=== PATIENT | female | born 1960 | race Caucasian/White ===

== ENCOUNTER 2020-08-27 12:53 | Outpatient (REF) | payer OTHER, SELFPAY ==
--- NOTE | 2020-08-27 13:00 | XR_ITS ---
EXAMINATION: XR RIGHT ANKLE, LEFT KNEE AND AP BILATERAL KNEES STANDING CLINICAL INFORMATION: Pain left knee and right ankle. COMPARISON: None. TECHNIQUE: AP bilateral knee: There is mild reduction in medial compartment joint space both knees. No bony erosive changes or loose body seen. FINDINGS: AP BILATERAL KNEE: There is mild reduction in medial compartment joint space both knees without any periarticular spurring or bony erosive changes. No loose body seen. LEFT KNEE: There is mild reduction in patellofemoral compartment joint space with mild periarticular spurring. There is no abnormal joint effusion. No bony erosive changes. There are no loose bodies. The soft tissues are normal. RIGHT ANKLE: There is a small avulsion fracture base of the 5th metatarsal. No additional fractures seen. There is mild dorsal tarsometatarsal spurring. There is small calcaneal heel spur. The ankle mortise and subtalar joints are normal. The soft tissues are normal. XR/XR ankle RT min 3V IMPRESSION: Mild degenerative arthritic changes medial and patellofemoral compartment with mild superior patellar spurring. No abnormal joint effusion. No bony erosive changes. Small avulsion fracture base of the 5th metatarsal. Mild degenerative spurring dorsal tarsometatarsal joint space and a moderate-sized calcaneal heel spur.
--- NOTE | 2020-08-27 13:00 | XR_ITS ---
EXAMINATION: XR RIGHT ANKLE, LEFT KNEE AND AP BILATERAL KNEES STANDING CLINICAL INFORMATION: Pain left knee and right ankle. COMPARISON: None. TECHNIQUE: AP bilateral knee: There is mild reduction in medial compartment joint space both knees. No bony erosive changes or loose body seen. FINDINGS: AP BILATERAL KNEE: There is mild reduction in medial compartment joint space both knees without any periarticular spurring or bony erosive changes. No loose body seen. LEFT KNEE: There is mild reduction in patellofemoral compartment joint space with mild periarticular spurring. There is no abnormal joint effusion. No bony erosive changes. There are no loose bodies. The soft tissues are normal. RIGHT ANKLE: There is a small avulsion fracture base of the 5th metatarsal. No additional fractures seen. There is mild dorsal tarsometatarsal spurring. There is small calcaneal heel spur. The ankle mortise and subtalar joints are normal. The soft tissues are normal. XR/XR knee LT 2V IMPRESSION: Mild degenerative arthritic changes medial and patellofemoral compartment with mild superior patellar spurring. No abnormal joint effusion. No bony erosive changes. Small avulsion fracture base of the 5th metatarsal. Mild degenerative spurring dorsal tarsometatarsal joint space and a moderate-sized calcaneal heel spur.
--- NOTE | 2020-08-27 13:00 | XR_ITS ---
EXAMINATION: XR RIGHT ANKLE, LEFT KNEE AND AP BILATERAL KNEES STANDING CLINICAL INFORMATION: Pain left knee and right ankle. COMPARISON: None. TECHNIQUE: AP bilateral knee: There is mild reduction in medial compartment joint space both knees. No bony erosive changes or loose body seen. FINDINGS: AP BILATERAL KNEE: There is mild reduction in medial compartment joint space both knees without any periarticular spurring or bony erosive changes. No loose body seen. LEFT KNEE: There is mild reduction in patellofemoral compartment joint space with mild periarticular spurring. There is no abnormal joint effusion. No bony erosive changes. There are no loose bodies. The soft tissues are normal. RIGHT ANKLE: There is a small avulsion fracture base of the 5th metatarsal. No additional fractures seen. There is mild dorsal tarsometatarsal spurring. There is small calcaneal heel spur. The ankle mortise and subtalar joints are normal. The soft tissues are normal. XR/XR knee standing BI IMPRESSION: Mild degenerative arthritic changes medial and patellofemoral compartment with mild superior patellar spurring. No abnormal joint effusion. No bony erosive changes. Small avulsion fracture base of the 5th metatarsal. Mild degenerative spurring dorsal tarsometatarsal joint space and a moderate-sized calcaneal heel spur.
== END 2020-08-27 12:54 | disposition home or self-care (01) ==
LOC: HO.HOSX 12:53
PROVIDERS: PCP Internal Medicine; Visit Provider Orthopaedic Surgery
DX: S99.911A Unspecified injury of right ankle, initial encounter (principal); M25.562 Pain in left knee; M25.561 Pain in right knee; S89.92XA Unspecified injury of left lower leg, initial encounter
CPT/HCPCS: 73560; 73565; 73610; 99212

== ENCOUNTER 2020-09-23 13:51 | Outpatient (REF) | payer OTHER, SELFPAY | END 2020-09-23 13:52 | disposition home or self-care (01) | LOC: HO.LAB 13:51 | PROVIDERS: Visit Provider Internal Medicine | DX: Z20.822 Contact with and (suspected) exposure to COVID-19 (principal) | CPT/HCPCS: 36415; C9803; U0003; U0005 ==

== ENCOUNTER 2021-03-04 07:26 | Outpatient (REF) | payer OTHER, SELFPAY ==
--- NOTE | ~2021-03-04 | MM_ITS ---
EXAMINATION: MM SCREENING DIGITAL BREAST TOMOSYNTHESIS, BILATERAL CLINICAL INFORMATION: Screening. Asymptomatic. The lifetime risk of breast cancer based on the Tyrer-Cuzick Model is 18%. COMPARISON: Mammography: 02/26/2020, 12/26/2018, 12/09/2017 TECHNIQUE: Digital breast tomosynthesis is performed in both the craniocaudal and mediolateral oblique views along with computer-aided detection (CAD). Synthesized 2D images are generated from the tomosynthesis. FINDINGS: The breasts are heterogeneously dense, which may obscure small masses (ACR BI-RADS breast composition Category c). There are no significant masses, abnormal calcifications, or other abnormalities. Scattered inhomogeneous parenchymal are similar to prior exams. No developing density. No significant changes. MM/MM tomosynthesis screening BI IMPRESSION: No mammographic evidence of malignancy. ASSESSMENT: BI-RADS 2: Benign RECOMMENDATION: Routine annual mammography screening. This patient's information was entered into a reminder system with a target due date for their next mammogram.
== END 2021-03-04 07:27 | disposition home or self-care (01) ==
LOC: HO.MAMMO 07:26
PROVIDERS: PCP Internal Medicine; Visit Provider Internal Medicine
DX: Z12.31 Encounter for screening mammogram for malignant neoplasm of breast (principal)
CPT/HCPCS: 77063; 77067

== ENCOUNTER 2021-04-09 08:30 | Outpatient (REF) | payer OTHER, SELFPAY ==
--- NOTE | ~2021-04-09 | MM_ITS ---
EXAMINATION: BONE DENSITOMETRY CLINICAL INDICATION: Osteopenia. COMPARISON: Baseline BD dated 04/28/2018. TECHNIQUE: Using a ididwork DXA System (software version: 13.1) manufactured by [employer], dual-energy x-ray absorptiometry was performed of the lumbar spine and left hip. The images are of good technical quality. Summary results are attached. FINDINGS: AP SPINE L1-L4: Current: BMD 1.154 g/cm2, Z-score 0.6, T-score -0.2, normal, 0.9% decrease from baseline (<5% change is not significant). Baseline: BMD 1.165 g/cm2. LEFT FEMUR, NECK: Current: BMD 0.814 g/cm2, Z-score -0.6, T-score -1.6, osteopenia. Baseline: BMD 0.856 g/cm2. LEFT FEMUR, TOTAL: Current: BMD 0.931 g/cm2, Z-score 0.0, T-score -0.6, normal, 2.1% decrease from baseline (<5% change is not significant). Baseline: BMD 0.951 g/cm2. IDENTIFIED RISK FACTORS: Low calcium intake. HISTORY OF FRACTURE: None listed. MEDICATIONS: None listed. MM/XR DEXA axial skeleton IMPRESSION: 1. DIAGNOSIS: Osteopenia based on the lowest T-score value of -1.6 in the femoral neck applying World Health Organization criteria. 2. 10-YEAR FRACTURE RISK PREDICTION, FRAX: Major osteoporotic fracture (clinical spine, forearm, hip or shoulder) 8.2%. Hip fracture 0.8%. 3. Treatment Recommendations: NOF guidelines recommend consideration for treatment in postmenopausal women and men age 50 and older presenting with the following: -A hip or vertebral (clinical or morphometric) fracture. -T-score less than or equal to -2.5 at the femoral neck or spine after appropriate evaluation to exclude secondary causes. -Low bone mass at the hip or spine and a 10-year fracture probability by FRAX of greater than or equal to 3% for hip fracture or greater than or equal to 20% for major osteoporotic fracture based on the [place] adapted WHO algorithm. 4. Other Recommendations: All treatment decisions require clinical judgment and consideration of individual patient factors, including patient preferences, comorbidities, previous drug use, risk factors not captured in the FRAX model (e.g. frailty, falls, vitamin D deficiency, increased bone turnover, interval significant decline in bone density) and possible under or overestimation of fracture risk by FRAX. Additional medical evaluation for secondary cause of low bone mineral density may be appropriate. FUTURE SCAN RECOMMENDATION: People with diagnosed cases of osteoporosis or at high risk for fracture should have regular bone mineral density tests. For patients eligible for Medicare, routine testing is allowed once every 2 years. The testing frequency can be increased to one year for patients who have rapidly progressing disease, those who are receiving or discontinuing medical therapy to restore bone mass, or have additional risk factors.
== END 2021-04-09 08:31 | disposition home or self-care (01) ==
LOC: HO.MAMMO 08:30
PROVIDERS: Visit Provider Internal Medicine
DX: Z13.820 Encounter for screening for osteoporosis (principal); M85.88 Other specified disorders of bone density and structure, other site
CPT/HCPCS: 77080

== ENCOUNTER 2021-05-02 10:55 | Outpatient (REF) | payer OTHER, SELFPAY ==
[2021-05-02 10:59] LABS: MANUAL DIFF FLAG NO
[2021-05-02 11:41] LABS: Basophils Percent Auto 0.4 % (0-2); Eosinophils Absolute Auto 0.1 X10*3/uL (0.0-0.4); Eosinophils Percent Auto 1.1 % (0-4); Hemoglobin 12.8 g/dl (12.0-16.0); Imm Gran Abs Auto 0.02 X10*3/uL (0.00-0.03); Imm Gran Pct Auto 0.2 % (0.0-0.4); Lymphocytes Absolute Auto 2.7 X10*3/uL (1.2-4.9); Lymphocytes Percent Auto 32.3 % (20-40); Mean Corpuscular HGB Conc 33.7 g/dl (31.0-35.0); Mean Corpuscular Hemoglobin 31.1 pg (27.0-33.0); Mean Corpuscular Volume 92.5 fL (80-98); Mean Platelet Volume 9.7 fL (9.4-12.3); Monocytes Absolute Auto 0.8 X10*3/uL (0.1-1.2); Neutrophils Absolute Auto 4.8 X10*3/uL (2.0-8.3); Platelet Count 362 X10*3/uL (160-400); Red Blood Count 4.11 X10*6/uL (4.20-5.50); Red Cell Distribution Width 11.9 % (11.0-16.0); White Blood Count 8.4 X10*3/uL (4.8-10.8)
[2021-05-02 12:04] LABS: Appearance Urine CLEAR; Color Urine YELLOW; Glucose Urine UA NEG (NEG); Leukocyte Esterase Urine NEG (NEG); Nitrite Urine NEG (NEG); Urine Blood 2+ (NEG); Urine Ketones NEG (NEG); Urine Protein NEG (NEG-TRACE)
[2021-05-02 12:19] LABS: Alanine Aminotransferase 16 U/L (0-31); Albumin Level 4.2 g/dL (3.5-5.0); Alkaline Phosphatase 78 U/L (39-117); Anion Gap 14 (12-20); Aspartate Amino Transferase 18 U/L (5-31); Bilirubin Total 0.9 mg/dL (0.0-1.0); Blood Urea Nitrogen 17 mg/dL (9-16); Calcium 10.1 mg/dL (8.4-10.2); Carbon Dioxide 28 mmol/L (22-29); Chloride 102 mmol/L (96-108); Cholesterol 239 mg/dL; Estimated Glomerular Filt Rate > 60; Glucose Fasting 84 mg/dL (60-99); HDL Cholesterol 75 mg/dL; LDL Cholesterol Calculated 142 mg/dl; Sodium 140 mmol/L (135-145); Total Protein 7.3 g/dL (6.5-8.0); Triglycerides 110 mg/dL
[2021-05-02 12:24] LABS: Vitamin D 25-OH Total 19.9 ng/mL (>30)
[2021-05-02 12:39] LABS: Bacteria Urine 1+ /LPF; RBC Urine 0-2 /HPF (0); Squamous Epithelial Cell Urine 1+ /LPF; WBC Urine 0 /HPF (0-4)
== END 2021-05-02 10:56 | disposition home or self-care (01) ==
LOC: HO.LNP 10:55
PROVIDERS: Visit Provider Internal Medicine
DX: I10 Essential (primary) hypertension (principal); E78.00 Pure hypercholesterolemia, unspecified; E55.9 Vitamin D deficiency, unspecified
CPT/HCPCS: 80053; 80061; 81001; 81003; 82306; 85025

== ENCOUNTER 2022-03-06 07:17 | Outpatient (REF) | payer OTHER, SELFPAY ==
--- NOTE | ~2022-03-06 | MM_ITS ---
EXAMINATION: MM SCREENING DIGITAL BREAST TOMOSYNTHESIS, BILATERAL CLINICAL INFORMATION: Screening. Asymptomatic. Remote history left breast surgery for cyst. Family history breast cancer, mother. The lifetime risk of breast cancer based on the Tyrer-Cuzick Model is 21%. COMPARISON: Mammography: 03/04/2021, 02/26/2020, 01/15/2019 TECHNIQUE: Digital breast tomosynthesis is performed in both the craniocaudal and mediolateral oblique views along with computer-aided detection (CAD). Synthesized 2D images are generated from the tomosynthesis. FINDINGS: The breasts are heterogeneously dense, which may obscure small masses (ACR BI-RADS breast composition Category c). Breast tissue composition borders on average fibroglandular. There are no significant masses, abnormal calcifications, or other abnormalities. Parenchymal pattern is similar to prior studies. The axilla and skin contours are unremarkable. MM/MM tomosynthesis screening BI IMPRESSION: No mammographic evidence of malignancy. ASSESSMENT: BI-RADS 1: Negative RECOMMENDATION: Routine annual mammography screening. This patient's information was entered into a reminder system with a target due date for their next mammogram.
== END 2022-03-06 07:18 | disposition home or self-care (01) ==
LOC: HO.MAMMO 07:17
PROVIDERS: Absent Provider Obstetrics & Gynecology; Visit Provider Internal Medicine
DX: Z12.31 Encounter for screening mammogram for malignant neoplasm of breast (principal)
CPT/HCPCS: 77063; 77067

== ENCOUNTER 2022-05-04 10:18 | Day surgery (SDC) | payer OTHER, SELFPAY ==
[2022-04-29 10:05] VITALS: BMI 29.6
--- NOTE | 2022-05-04 10:29 | HO.ANESPROP2 ---
HPI - Anesthesia Eval Consult details Narrative: 62 yo female patient for colonoscopy PMFSH Active Problems Active Problems: Asthma- stable. Uses advair everyday Past Medical History Medical History Asthma History of COVID-19 Hypertension Family History Family history of problems with anesthesia: No Surgical History Surgical History H/O colonoscopy History of breast lump/mass excision Hx of dilation and curettage S/P arthroscopic surgery of left knee History of Problems with Anesthesia: No Social History Social History Advance Directives: No Advance Directives Information Provided: Yes Current occupational status: employed Current occupation: Desk work - right handed Meds Allergies Allergy/AdvReac Type Severity Reaction Status Date / Time No Known Allergies Allergy Unverified 05/09/20 15:33 [No Known Allergies*] Active Medications: Current Medications Lactated Ringer's (Lr) 1,000 mls @ 100 mls/hr IVCONT .Q10H [facility] Home Medications Medication Instructions Recorded Confirmed Last Taken Type albuterol sulfate 90 mcg/actuation 2 puff inhalation Q4H PRN Wheezing 04/29/22 04/29/22 Unknown History aerosol inhaler fluticasone propionate 50 1 spray intranasal DAILY 04/29/22 04/29/22 Unknown History mcg/actuation nasal spray,suspension irbesartan 150 1 tab PO DAILY 04/29/22 04/29/22 Unknown History mg-hydrochlorothiazide 12.5 mg tablet Exam Exam Date and Time: May 04, 2022 1029 Height,Weight and Vital Signs: Height 5 ft 5 in Weight 80.739 kg Vital Signs Temp Pulse Resp BP Pulse Ox O2 Del Method 05/04/22 10:33 97.8 F 80 18 123/75 97 Room Air Airway Mallampati Class: I TM Dist: >3cm Neck ROM: Full Loose/Missing/Broken Teeth: No (Caps intact) Heart: RRR Lungs: CTAB Assessment and Plan Assessment Anesthesia Assessment: Anesthesia Plan Discussed and Chart Reviewed Final Anesthetic Review Family History of Problems with Anesthesia: No History of Problems with Anesthesia: No NPO: Yes ASA Class: II Final Preanesthetic Review: No Changes in Pt Med Stat, Meds/Allgs Chart Reviewed, Consent Obtained/Reviewed and Anes Risks/Benef Reviewed Patient Risk: Low Procedure Risk: Low Assessment/Block/Sedation in SS: Assess/Block/Sedation-SS Anesthetic Plan Anesthetic Plan: MAC: Disposition: Standard PACU
[2022-05-04 10:33] VITALS: BP 123/75; PULSE 80; RESP 18; TEMP 36.6; O2SAT 97
[2022-05-04] MEDS: Lactated Ringers 1,000 ML 100 ML IVCONT (10:49)
[2022-05-04 11:38] VITALS: BP 98/50; PULSE 67; RESP 16; TEMP 36.2; O2SAT 99
--- NOTE | 2022-05-04 11:41 | PM.OP ---
Brief Operative Note Date of Service: 05/04/22 Pre-op diagnosis: Screening Post-op diagnosis: other (Diverticulosis) Procedure: Colonoscopy to the cecum and TI Surgeon: aRshi Luna Anesthesia: MAC Was an Dust Collector Attendant used for this Procedure?: No Estimated blood loss (mL): 0 Pathology: none sent Condition: stable Disposition: PACU
[2022-05-04 11:53] VITALS: BP 97/54; PULSE 67; RESP 16; O2SAT 98
[2022-05-04 12:06] VITALS: BP 116/69; PULSE 63; RESP 16; TEMP 36.3; O2SAT 97
--- NOTE | 2022-05-04 23:13 | OP_ITS ---
05/04/2022 SURGEON: Rashi Luna MD INDICATIONS: The patient presents for evaluation of colorectal cancer screening. Full consent has been obtained from her for this, including risks of bleeding and perforation. PREOPERATIVE DIAGNOSIS: Colorectal cancer screening. POSTOPERATIVE DIAGNOSIS: PROCEDURE PERFORMED: Colonoscopy to cecum and terminal ileum. ESTIMATED BLOOD LOSS: COMPLICATIONS: ANESTHESIA: Medication used, monitored anesthesia care. ASSISTANTS: SPECIMENS: POSTOPERATIVE DIAGNOSES: 1. Colorectal cancer screening. 2. Mild sigmoid diverticulosis. 3. Small internal hemorrhoids. DESCRIPTION OF PROCEDURE: The patient was placed in the left lateral decubitus position. The digital rectal exam revealed no abnormalities. The Olympus video pediatric colonoscope was entered into the rectum and advanced easily to the cecum. Once in the cecum, I did identify normal-appearing cecal pouch with appendiceal orifice and a normal-appearing ileocecal valve. The terminal ileum was cannulated and appeared normal. The scope withdrawn back in the colon. The entire cecum and ileocecal valve appeared normal. The scope was slowly withdrawn assessing all mucosal surfaces carefully. Preparation was excellent. I did not visualize any sign of polyps, colitis, nor angiodysplasia. There was a mild amount of sigmoid diverticulosis. In the rectum, scope was retroflexed visualizing internal hemorrhoids, but no other pathology. The rectal mucosa appeared normal. The scope was straightened and withdrawn to the patient. She tolerated the procedure well and was returned to the recovery area in stable condition. IMPRESSION: 1. Mild sigmoid diverticulosis. 2. Small internal hemorrhoids. PLAN: Given the negative exam and negative family history, I would recommend a followup colonoscopy in 10 years for further screening. She will otherwise see me on a p.r.n. basis. MD JESSICA Paarda/FLAKITO / [id number] HUMBERTO
== END 2022-05-04 12:35 | disposition home or self-care (01) ==
PROVIDERS: PCP Internal Medicine; Visit Provider Internal Medicine
PROC: 0DJD8ZZ Inspection of Lower Intestinal Tract, Via Natural or Artificial Opening Endoscopic (ICD-10-PCS; CPT 45378; principal; 2022-05-04 11:50)
DX: Z12.11 Encounter for screening for malignant neoplasm of colon (principal); K57.30 Diverticulosis of large intestine without perforation or abscess without bleeding; K64.8 Other hemorrhoids; I10 Essential (primary) hypertension; J45.909 Unspecified asthma, uncomplicated
CPT/HCPCS: 45378

== ENCOUNTER 2022-05-07 11:57 | Outpatient (REF) | payer OTHER, SELFPAY ==
[2022-05-07 12:04] LABS: MANUAL DIFF FLAG NO
[2022-05-07 12:14] LABS: Basophils Percent Auto 0.3 % (0-2); Eosinophils Absolute Auto 0.1 X10*3/uL (0.0-0.4); Eosinophils Percent Auto 1.5 % (0-4); Hemoglobin 13.1 g/dl (12.0-16.0); Imm Gran Abs Auto 0.03 X10*3/uL (0.00-0.03); Imm Gran Pct Auto 0.3 % (0.0-0.4); Lymphocytes Absolute Auto 2.9 X10*3/uL (1.2-4.9); Lymphocytes Percent Auto 33.5 % (20-40); Mean Corpuscular HGB Conc 32.8 g/dl (31.0-35.0); Mean Corpuscular Hemoglobin 29.8 pg (27.0-33.0); Mean Corpuscular Volume 90.9 fL (80.0-98.0); Mean Platelet Volume 9.5 fL (9.4-12.3); Monocytes Absolute Auto 0.7 X10*3/uL (0.1-1.2); Monocytes Percent Auto 8.3 % (2-11); Neutrophils Absolute Auto 4.8 x10*3/uL (2.0-8.3); Neutrophils Percent Auto 56.1 % (45-73); Platelet Count 355 X10*3/uL (160-400); Red Cell Distribution Width 11.6 % (11.0-16.0); White Blood Count 8.6 X10*3/uL (4.8-10.8)
[2022-05-07 12:19] LABS: Appearance Urine Clear; Color Urine Yellow; Glucose Urine UA Negative (Negative); Leukocyte Esterase Urine Negative (Negative); Nitrite Urine Negative (Negative); PH 5.5 (5.0-9.0); Specific Gravity - Urine 1.025 (1.005-1.025); UMIC TRIGGER UA YES; Urine Blood Small (1+) (Negative); Urine Ketones Negative (Negative); Urine Protein Negative (Neg-Trace)
[2022-05-07 12:25] LABS: Alanine Aminotransferase 22 U/L (0-31); Albumin Level 4.3 g/dL (3.5-5.0); Alkaline Phosphatase 97 U/L (39-117); Anion Gap 13 (12-20); Aspartate Amino Transferase 23 U/L (5-31); Bilirubin Total 0.7 mg/dL (0.0-1.0); Blood Urea Nitrogen 17 mg/dL (9-16); Calcium 9.8 mg/dL (8.4-10.2); Carbon Dioxide 29 mmol/L (22-29); Chloride 102 mmol/L (96-108); Cholesterol 242 mg/dL; Estimated Glomerular Filt Rate > 60; Glucose Fasting 82 mg/dL (60-99); HDL Cholesterol 68 mg/dL; LDL Cholesterol Calculated 156 mg/dl; Potassium 4.1 mmol/L (3.3-5.1); Sodium 140 mmol/L (135-145); Total Protein 7.5 g/dL (6.5-8.0); Triglycerides 94 mg/dL
[2022-05-07 12:29] LABS: Bacteria Urine None Seen (None Seen); Hyaline Casts Urine 0-2 /LPF (0-2); WBC Urine 0-5 /HPF (0-5)
[2022-05-07 12:46] LABS: Vitamin D 25-OH Total 23.1 ng/mL (>30)
== END 2022-05-07 11:58 | disposition home or self-care (01) ==
LOC: HO.LNP 11:57
PROVIDERS: Visit Provider Internal Medicine
DX: Z00.00 Encounter for general adult medical examination without abnormal findings (principal); I10 Essential (primary) hypertension; E78.00 Pure hypercholesterolemia, unspecified; E55.9 Vitamin D deficiency, unspecified
CPT/HCPCS: 80053; 80061; 81001; 82306; 85025

== ENCOUNTER 2022-12-14 16:05 | Outpatient (REF) | payer OTHER, SELFPAY ==
[2022-12-14 16:49] LABS: Appearance Urine Clear; Color Urine Yellow; Glucose Urine UA Negative (Negative); Leukocyte Esterase Urine Negative (Negative); Nitrite Urine Negative (Negative); PH 6.5 (5.0-9.0); Urine Blood Negative (Negative); Urine Ketones Negative (Negative); Urine Protein Negative (Neg-Trace)
[2022-12-14 16:51] LABS: Bacteria Urine None Seen (None Seen); Hyaline Casts Urine 0-2 /LPF (0-2); Squamous Epithelial Cell Urine 0-2 /HPF (0-2); WBC Urine 0-5 /HPF (0-5)
== END 2022-12-14 16:06 | disposition home or self-care (01) ==
LOC: HO.LNP 16:05
PROVIDERS: Visit Provider Internal Medicine
DX: N30.00 Acute cystitis without hematuria (principal)
CPT/HCPCS: 81001; 87086

== ENCOUNTER 2023-03-11 12:10 | Outpatient (REF) | payer OTHER, SELFPAY ==
--- NOTE | ~2023-03-11 | MM_ITS ---
EXAMINATION: MM SCREENING DIGITAL BREAST TOMOSYNTHESIS, BILATERAL CLINICAL INFORMATION: Screening. Asymptomatic. The lifetime risk of breast cancer based on the Tyrer-Cuzick Model is 19.8%. COMPARISON: Mammography: This study is compared with prior exams dating back to 2018. TECHNIQUE: Digital breast tomosynthesis is performed in both the craniocaudal and mediolateral oblique views along with computer-aided detection (CAD). Synthesized 2D images are generated from the tomosynthesis. FINDINGS: The breasts are heterogeneously dense, which may obscure small masses (ACR BI-RADS breast composition Category c). There are no significant masses, abnormal calcifications, or other abnormalities. MM/MM tomosynthesis screening BI IMPRESSION: No mammographic evidence of malignancy. ASSESSMENT: BI-RADS BI-RADS 1 - Negative RECOMMENDATION: Routine annual mammography screening. 1 year F/U This examination should not preclude the clinical evaluation of a suspicious palpable abnormality. This patient's information was entered into a reminder system with a target due date for their next mammogram.
== END 2023-03-11 12:11 | disposition home or self-care (01) ==
LOC: HO.MAMMO 12:10
PROVIDERS: PCP Internal Medicine; Visit Provider Internal Medicine
DX: Z12.31 Encounter for screening mammogram for malignant neoplasm of breast (principal)
CPT/HCPCS: 77063; 77067

== ENCOUNTER → 2023-03-11 12:15 | Outpatient (BNV) | payer OTHER, SELFPAY | PROVIDERS: PCP Internal Medicine; Visit Provider Radiology Diagnostic Radiology | DX: Z12.31 Encounter for screening mammogram for malignant neoplasm of breast (principal) | CPT/HCPCS: 77063; 77067 ==

== ENCOUNTER 2023-05-04 08:34 | Outpatient (REF) | payer OTHER, SELFPAY ==
--- NOTE | ~2023-05-04 | XR_ITS ---
EXAMINATION: XR HAND, LEFT CLINICAL INFORMATION: Left hand pain COMPARISON: None available. TECHNIQUE: PA, lateral, and oblique views of the left hand. FINDINGS: Arrow points to the radial aspect of the wrist. No fracture, dislocation or focal soft tissue swelling. Alignment and articulations are maintained. XR/XR hand LT min 3V IMPRESSION: No acute bony pathology.
== END 2023-05-04 08:35 | disposition home or self-care (01) ==
LOC: HO.HOSX 08:34
PROVIDERS: Visit Provider Orthopaedic Surgery
DX: M65.4 Radial styloid tenosynovitis [de Quervain] (principal); M79.642 Pain in left hand
CPT/HCPCS: 20550; 73130; J1100

== ENCOUNTER 2023-05-04 13:49 | Outpatient (AMB) | payer OTHER, SELFPAY ==
--- NOTE | 2023-05-04 14:19 | A.OFFVIS_ITS ---
Intake Intake Visit Reasons: NProb-Left hand pain Intake Note: Lucy 63 yr old right hand dominant female presents today for a new problem of her left hand. States pain is mostly by her wrist below her thumb since December. Pain is triggered with use of thumb, pinching and grabbing motion. At times, states her hand feels weak. No injury she can recall. Denies numbness, tingling or locking of fingers. Patient recalls hx of right hand possibly dequervain injection. Allergies No Known Allergies [No Known Allergies*] Allergy (Unverified 05/04/23 14:29) HPI NProb-Left hand pain HPI Details Lucy Carranza is a 63-year-old right hand dominant woman who presents today to the office for an evaluation of left-hand pain. She reports left radial sided wrist pain. The patient states that her pain is mostly by her wrist below her thumb since December. The pain is triggered with use of thumb, pinching and grabbing motion. At times, she states that her hand feels weak. She does not recall any trauma or accidents in the past. She denies numbness, tingling or locking of fingers. Patient recalls history of right hand possibly dequervain injection. She works as an account payable on the computer. [facility] Medical History Asthma History of COVID-19 Hypertension Surgical History H/O colonoscopy History of breast lump/mass excision Hx of dilation and curettage S/P arthroscopic surgery of left knee Social History (Reviewed 05/04/23 @ 14:29 by Betsey Jackson [facility]) Patient Tobacco Use Status: Never used Tobacco Current occupational status: employed Current occupation: Desk work - right handed Review of Systems Const All systems reviewed & are unremarkable except as noted in HPI and below Physical Exam Const General: cooperative, healthy appearing and no acute distress Orientation/consciousness: patient oriented x3 HEENT Head: Yes normocephalic and Yes atraumatic Eyes EOM: EOMs intact bilaterally Resp Effort & Inspection: normal respiratory effort and able to speak in complete sentences Cardio Jugular venous distension: no JVD Skin General skin exam: turgor normal, ecchymosis (No) and erythema (No) Rashes: no rashes Trauma: no lacerations or abrasions Neuro Other: Vascular: Cap refill brisk General: patient oriented x3 Extrem Other: Evaluation of left Upper Extremity: Neuro: Median, ulnar, radial nerves motor and sensory intact. Vascular: Cap refill brisk. ROM: Can bring fingers closed to a fist and back out to full or nearly full extension. Can oppose thumb to fingertips Skin: No lacerations or abrasions. General: No eccymosis. No erythema or evidence of infection. She is most tender to palpation over the left 1st dorsal compartment tendon sheath. She has a positive Dillon test on the left and a negative Dillon test on the right She is not particularly tender over the basal joint of the thumb or the MCP joint of the thumb which is stable. Radiographs: Three views of the patient's left hand were reviewed by me today. They show no fractures or dislocations. She does not appear to have significant basal joint arthritis. Psych Appearance: grossly normal Affect: normal affect Attitude: cooperative Office Procedures Fracture Care Details: No fracture, injection Fracture Billing Code: Fracture Billing Code Assessment & Plan Assessment & Plan (1) De Quervain's tenosynovitis, left: Code(s): M65.4 - Radial styloid tenosynovitis [de Quervain] Plan Assessment and plan: 1. Left de Quervain tenosynovitis I educated her about this condition We discussed the importance of activity modification We fitted her with a neoprene thumb spica splint to wear with daytime activities and when symptomatic. We discussed operative and non operative treatment options and I am recommending a steroid injection. She would like the steroid injection today. Injection #1: The risks and benefits of a steroid injection including but not limited to risk of damage to blood vessels, nerves, tendons, infection, skin bleaching, failure to improve symptoms, increased pain, and possible need for further injections or other intervention were discussed with the patient and the patient wishes to proceed with the steroid injection. Once consent was obtained, I sterilely prepped the area over the left 1st dorsal compartment tendon sheath. I then injected the tendon sheath with a combination of 1 mL of dexamethasone (4mg/ml), and 1% lidocaine. The patient tolerated the procedure well with no complications. She had good early relief of her symptoms before leaving clinic. If the patient continues to have painful symptoms in 6-8 weeks, she may call to be seen again. At that time we can decide on whether not she might benefit from a repeat injection verses possible operative treatment. . Scribed for Dr. Zohreh Mejia by Jose Roberto Escalera, medical office administrator, on 05/04/2023. I, Dr. Zohreh Mejia, have personally reviewed and agree with the information entered by the scribe. Orders: Orders XR hand LT min 3V Today M79.642 - Pain in left hand Coding Level of Care Code New Pt Level 3 (35213) Diagnoses De Quervain's tenosynovitis, left M65.4 CPT Codes Fracture Care - Fracture Billing Code: Fracture Billing Code ([id number])
== END 2023-05-04 15:11 | disposition home or self-care (01) ==
PROVIDERS: PCP Internal Medicine; Visit Provider Orthopaedic Surgery
DX: M65.4 Radial styloid tenosynovitis [de Quervain] (principal)
CPT/HCPCS: 20550; 99203

== ENCOUNTER 2023-05-11 17:00 | Outpatient (REF) | payer OTHER, SELFPAY ==
--- NOTE | ~2023-05-11 | MR_ITS ---
EXAMINATION: MR BREAST WITHOUT AND WITH CONTRAST, BILATERAL CLINICAL INFORMATION: Dense breast tissue. Calculated lifetime risk of breast cancer by the Tyrer-Cuzick Model is 19.8%. COMPARISON: Bilateral mammogram 03/11/2023 TECHNIQUE: Imaging was performed with a dedicated breast coil. Prior to the administration of contrast, bilateral axial T1 and bilateral axial T2 weighted sequences were obtained. After the uneventful administration of?8 mL of Gadavist, dynamic contrast-enhanced VIBRANT series through the breasts in the axial plane were performed. Subtracted images were performed and reviewed. A delayed sagittal sequence through both breasts was acquired. Additionally, CAD post-processing, including maximum intensity projections, 3-D reconstructions and kinetic analysis, were performed an independent workstation and reviewed by the interpreting radiologist is a portion of this exam. Poor positioning results in regional signal loss of the upper outer left breast. FINDINGS: The patient's extremely dense fibroglandular tissue demonstrates minimal background enhancement. LEFT BREAST: No suspicious masslike or non-masslike enhancement. No abnormal skin thickening or nipple retraction. No abnormal architectural distortion. There is overall asymmetry with diffuse, mild enhancement on the left as opposed to the right. The appearance is suggestive of a technical artifact. Review of the T2 weighted images demonstrates no fibrocystic changes or dilated ducts. Review of kinetic images reveals no additional findings. RIGHT BREAST: No suspicious masslike or non-masslike enhancement. No abnormal skin thickening or nipple retraction. No abnormal architectural distortion. Review of the T2 weighted images demonstrates no fibrocystic changes or dilated ducts. Review of kinetic images reveals no additional findings. There is no suspicious internal mammary chain or axillary adenopathy. Limited views of the chest and abdomen are unremarkable. MR/MR breast BI wo/w con IMPRESSION: Technically limited study. There is artifact obscuring the upper outer left breast and an overall diffuse asymmetry of background enhancement, left greater than right which is presumably artifactual nature. ASSESSMENT: LEFT BREAST: BI-RADS 0, incomplete, need additional imaging evaluation. RIGHT BREAST: BI-RADS 0, incomplete, need additional imaging evaluation. RECOMMENDATIONS: Repeat dynamic contrast sequence due to poor positioning and artifact of the upper outer quadrant and central left breast.
[2023-05-11] MEDS: gadobutroL 10 ML VIAL IVPUSH (18:25)
== END 2023-05-11 17:01 | disposition home or self-care (01) ==
LOC: HO.MRI 17:00
PROVIDERS: PCP Internal Medicine; Visit Provider Internal Medicine
DX: R92.8 Other abnormal and inconclusive findings on diagnostic imaging of breast (principal); R92.2 Inconclusive mammogram; Z80.3 Family history of malignant neoplasm of breast
CPT/HCPCS: 77049; A9585

== ENCOUNTER 2023-05-13 11:01 | Outpatient (REF) | payer OTHER, SELFPAY ==
[2023-05-13 11:08] LABS: MANUAL DIFF FLAG NO
[2023-05-13 11:17] LABS: Appearance Urine Clear; Color Urine Yellow; Glucose Urine UA Negative (Negative); Leukocyte Esterase Urine Trace (Negative); Nitrite Urine Negative (Negative); PH 5.5 (5.0-9.0); Specific Gravity - Urine 1.025 (1.005-1.025); UMIC TRIGGER UACC YES; Urine Blood Small (1+) (Negative); Urine Ketones Negative (Negative); Urine Protein Negative (Neg-Trace)
[2023-05-13 11:20] LABS: Bacteria Urine None Seen (None Seen); Hyaline Casts Urine 0-2 /LPF (0-2); WBC Urine 0-5 /HPF (0-5)
[2023-05-13 11:54] LABS: Basophils Percent Auto 0.3 % (0-2); Eosinophils Absolute Auto 0.1 X10*3/uL (0.0-0.4); Eosinophils Percent Auto 1.5 % (0-4); Hematocrit 37.8 % (37.0-47.0); Hemoglobin 12.7 g/dl (12.0-16.0); Imm Gran Abs Auto 0.04 X10*3/uL (0.00-0.03); Imm Gran Pct Auto 0.5 % (0.0-0.4); Lymphocytes Absolute Auto 2.3 X10*3/uL (1.2-4.9); Lymphocytes Percent Auto 26.7 % (20-40); Mean Corpuscular HGB Conc 33.6 g/dl (31.0-35.0); Mean Corpuscular Hemoglobin 30.2 pg (27.0-33.0); Mean Corpuscular Volume 89.8 fL (80.0-98.0); Mean Platelet Volume 9.7 fL (9.4-12.3); Monocytes Absolute Auto 0.8 X10*3/uL (0.1-1.2); Monocytes Percent Auto 9.3 % (2-11); Neutrophils Absolute Auto 5.4 x10*3/uL (2.0-8.3); Neutrophils Percent Auto 61.7 % (45-73); Platelet Count 369 X10*3/uL (160-400); Red Blood Count 4.21 X10*6/uL (4.20-5.50); Red Cell Distribution Width 11.9 % (11.0-16.0); White Blood Count 8.7 X10*3/uL (4.8-10.8)
[2023-05-13 12:07] LABS: Alanine Aminotransferase 31 U/L (0-31); Albumin Level 4.2 g/dL (3.5-5.0); Alkaline Phosphatase 100 U/L (39-117); Anion Gap 11 (12-20); Aspartate Amino Transferase 28 U/L (5-31); Bilirubin Total 0.5 mg/dL (0.0-1.0); Blood Urea Nitrogen 23 mg/dL (9-16); Calcium 10.1 mg/dL (8.4-10.2); Carbon Dioxide 28 mmol/L (22-29); Chloride 107 mmol/L (96-108); Cholesterol 236 mg/dL (<200); Estimated Glomerular Filt Rate > 60; Glucose Fasting 87 mg/dL (60-99); HDL Cholesterol 75 mg/dL (>40); LDL Cholesterol Calculated 144 mg/dL (<100); Potassium 3.9 mmol/L (3.3-5.1); Sodium 142 mmol/L (135-145); Total Protein 7.5 g/dL (6.5-8.0); Triglycerides 85 mg/dL (<150)
== END 2023-05-13 11:02 | disposition home or self-care (01) ==
LOC: HO.LNP 11:01
PROVIDERS: Visit Provider Internal Medicine
DX: Z00.00 Encounter for general adult medical examination without abnormal findings (principal); E78.00 Pure hypercholesterolemia, unspecified; E55.9 Vitamin D deficiency, unspecified; I10 Essential (primary) hypertension
CPT/HCPCS: 80053; 80061; 81001; 82306; 85025

== ENCOUNTER 2023-05-28 11:34 | Outpatient (REF) | payer OTHER, SELFPAY | END 2023-05-28 11:35 | disposition home or self-care (01) | LOC: HO.MRI 11:34 | PROVIDERS: PCP Internal Medicine; Visit Provider Internal Medicine | DX: Z13.89 Encounter for screening for other disorder (principal) ==

== ENCOUNTER 2023-07-21 11:55 | Outpatient (AMB) | payer OTHER, SELFPAY ==
--- NOTE | 2023-07-21 12:14 | A.OFFVIS_ITS ---
Intake Intake Visit Reasons: ov-De Quervain's tenosynovitis, left Intake Note: Lucy is a 63 year old female who presents today to discuss surgery as the last injection was not helpful Allergies No Known Allergies [No Known Allergies*] Allergy (Unverified 06/10/23 13:49) HPI ov-De Quervain's tenosynovitis, left HPI Details Lucy is a 63 year old woman who presents for a follow-up of her left De Quervain's tenosynovitis. She is S/P injection on 05/04/23 with no relief. She continues to have radial sided wrist pain and would like to discuss surgery. [facility] Medical History Asthma History of COVID-19 Hypertension Surgical History H/O colonoscopy History of breast lump/mass excision Hx of dilation and curettage S/P arthroscopic surgery of left knee Social History (System 06/10/23 @ 13:49 by Larisa Glynn) Patient Tobacco Use Status: Never used Tobacco Current occupational status: employed Current occupation: Desk work - right handed Review of Systems Const All systems reviewed & are unremarkable except as noted in HPI and below Physical Exam Const General: no acute distress and alert Orientation/consciousness: patient oriented x3 HEENT Head: Yes normocephalic and Yes atraumatic Eyes EOM: EOMs intact bilaterally Resp Effort & Inspection: normal respiratory effort and able to speak in complete sentences Cardio Jugular venous distension: no JVD Skin General skin exam: turgor normal, ecchymosis (No) and erythema (No) Rashes: no rashes Trauma: no lacerations or abrasions Neuro Other: Vascular: Cap refill brisk General: patient oriented x3 Extrem Other: Evaluation of Left Upper Extremity: The patient is alert, oriented, and in no acute distress Neuro: Median, Ulnar, Radial nerves motor and sensory intact and sensation is normal to the tips of all digits Vascular: Cap refill brisk ROM: She can make a fist and extend all her digits Tender over the 1st dorsal compartment Pos Dillon test on the left Neg Dillon test on the right Psych Appearance: grossly normal Affect: normal affect Attitude: cooperative Assessment & Plan Assessment & Plan (1) De Quervain's tenosynovitis, left: Code(s): M65.4 - Radial styloid tenosynovitis [de Quervain] Plan Assessment and plan: 1. Left de Quervain tenosynovitis, S/P injection Date of Injection: 05/04/23 I educated her about this condition She continues to have pain following her injection The patient would like to proceed with surgery The risks and benefits of operative treatment were discussed with the patient and the patient wishes to proceed with surgery. These risks include, but are not limited to risk of damage to blood vessels, nerves, tendons, infection, recurrence, incomplete relief of preoperative symptoms, persistent pain, possible need for further surgery and the risks associated with regional blocks and anesthesia. The plan is to take the patient to the operating room sometime in the next few weeks for the following procedures: 1. Left 1st dorsal compartment release, under local All of the preoperative paperwork including the consent was filled out today. All the patient's questions were answered. The patient understands that they will be contacted by our channel layer kim elias to schedule this procedure She denies Diabetes, blood thinners, asthma, heart, lung, kidney issues Scribed for Zohreh Mejia MD by Angelito Cohen, medical billing and coding specialist, on 07/21/23 at 12:50 PM, EST. Coding Level of Care Code Est Pt Level 4 (78217) Diagnoses De Quervain's tenosynovitis, left M65.4
== END 2023-07-21 12:46 | disposition home or self-care (01) ==
PROVIDERS: PCP Internal Medicine; Visit Provider Orthopaedic Surgery
DX: M65.4 Radial styloid tenosynovitis [de Quervain] (principal)
CPT/HCPCS: 99214

== ENCOUNTER → 2023-07-21 11:55 | Outpatient (BNVA) | payer OTHER, SELFPAY | PROVIDERS: PCP Internal Medicine; Visit Provider Orthopaedic Surgery ==

== ENCOUNTER 2023-10-25 09:54 | Day surgery (SDC) | payer OTHER, SELFPAY ==
[2023-10-25 10:07] VITALS: BP 132/87; PULSE 79; RESP 20; TEMP 36.1; O2SAT 97; BMI 31.0
--- NOTE | 2023-10-25 10:41 | PC.NURSE ---
pt tolerated block fine nad
--- NOTE | 2023-10-25 11:48 | MHC.SHP ---
Pre-Procedural Eval Section A - 24 Hr Update-Section A only Date of Service: 10/25/23 The patient is an INPATIENT: No Changes since office visit: No Cold of Flu in the past 2 weeks, No New Medical Problems, No Changes in Medication and No Patient answered all questions The patient has been examined within 24 hours of the surgical procedure. The History & Physical has been completed within 30 days and I have reviewed it.: Yes Section B - Complete if H&P > 30 days Chief Complaint: Radial styloid tenosynovitis [de Quervain] Allergies: Allergies Allergy/AdvReac Type Severity Reaction Status Date / Time No Known Allergies Allergy Verified 10/25/23 10:26 [No Known Allergies*] Plan I have reviewed the history and physical and performed a pertinent physical examination on my patient. No changes have occurred unless specified. Time Spent With Patient Time: Total time managing care of this patient today ____ minutes.
--- NOTE | 2023-10-25 11:49 | P.OP_ITS ---
Operative Note Operative Note Date of Service: 10/25/23 Narrative: Operative Note Preop diagnosis: 1. Left DeQuervain's tenosynovitis Postop diagnosis: 1. Left DeQuervain's tenosynovitis Procedure: 1. Left 1st dorsal compartment release Surgeon: Zohreh Mejia MD Anesthesia: local block using 1% lidocaine with epinephrine Findings: F Thickened 1st dorsal compartment and a separate compartment for the EPB tendon with an hourglass deformity of the EPB tendon found EBL: Less than 5 mL Tourniquet time: None Specimens: None Complications: None Disposition: Brought to recovery room in stable condition Plan: Follow-up for 7-10 days for wound check and suture removal Indications: The patient is 63 years old, with left DeQuervain's tenosynovitis that has been unresponsive to nonoperative management. The risks and benefits of operative treatment including but not limited to risk of damage to blood vessels, nerves, tendons, infection, persistent pain, persistent symptoms, recurrence or possible need for additional surgery were discussed with the patient and the patient wishes to proceed with surgery. Procedure: Once consent was obtained a local block was performed in the preop area using a combination of 1% lidocaine with epinephrine. The patient was then brought back to the operating suite and placed on the operative table in supine position. A tourniquet was applied to the proximal aspect of the left upper extremity and the limb was prepped and draped in a standard surgical fashion. Once assured that we had a good block, a 1.5 cm longitudinal incision was made centered over the 1st dorsal compartment as it passed over the radial styloid of the left wrist. The incision was made through the skin to the subcutaneous tissues using a #15 blade. Careful dissection was made down to the level of the 1st dorsal compartment using tenotomy scissors, with care being taken to protect the nearby branches of the superficial radial nerve. Once the 1st dorsal compartment was exposed, A longitudinal incision was made in the 1st dorsal compartment 1st using a #15 blade, then using tenotomy scissors under direct visualization. The 1st dorsal compartment was noted to be thickened. The EPB tendon was noted to be in a separate compartment. I then incised this compartment longitudinally 1st with a 15. Blade and then with tenotomy scissors. The EPB tendon was noted to have an hourglass deformity. Following our release , we saw smooth gliding abductor pollicis longus and extensor pollicis brevis tendons. Once satisfied with our 1st dorsal compartment release the wound was copiously irrigated with normal saline and hemostasis was obtained with a brief period of local pressure. The subcutaneous layer was closed with some 4-0 Vicryl suture, and the skin edges were reapproximated with some 5.0 nylon suture material. A sterile dressing was applied. The patient appears to have tolerated the procedure well and with no complications. All digits were well vascularized at the conclusion of the case.
[2023-10-25 12:05] VITALS: BP 138/79; PULSE 85; RESP 16; O2SAT 97
== END 2023-10-25 12:06 | disposition home or self-care (01) ==
PROVIDERS: PCP Internal Medicine; Visit Provider Orthopaedic Surgery
PROC: (CPT 25000; principal; 2023-10-25 11:30)
DX: M65.4 Radial styloid tenosynovitis [de Quervain] (principal); M25.532 Pain in left wrist; J45.909 Unspecified asthma, uncomplicated; Z86.16 Personal history of COVID-19; Z98.890 Other specified postprocedural states
CPT/HCPCS: 25000; J0171

== ENCOUNTER → 2023-10-25 09:54 | Outpatient (BNV) | payer OTHER, SELFPAY | PROVIDERS: PCP Internal Medicine; Visit Provider Orthopaedic Surgery | DX: M65.4 Radial styloid tenosynovitis [de Quervain] (principal) | CPT/HCPCS: 25000 ==

== ENCOUNTER 2023-11-09 14:12 | Outpatient (AMB) | payer OTHER, SELFPAY ==
--- NOTE | 2023-11-09 14:31 | MHC.OFFVIS ---
Intake Vital Signs 11/09/23 14:33 Height 5 ft 4 in Weight 180 lb BMI 30.9 Intake Visit Reasons: PO-1st DC Release 10/25/23 Intake Note: Lucy 63 yr old female presents today for her P/O visit for her 1st DC release from 10/25/23. States she is doing well and has on and off pain. Sutures removed and strei strips applied. Allergies No Known Allergies [No Known Allergies*] Allergy (Verified 11/09/23 14:32) HPI PO-1st DC Release 10/25/23 HPI Details Lucy is a 63 year old woman who returns S/P left 1st dorsal compartment release, DOS: 10/25/23 She says she is doing well overall and can tell that she already has improvement. She is happy with the results of her surgery. [facility] Medical History Asthma History of COVID-19 Hypertension Surgical History History of breast lump/mass excision Hx of dilation and curettage H/O colonoscopy S/P arthroscopic surgery of left knee Social History Comment: counts correct Patient Tobacco Use Status: Never used Tobacco Current occupational status: employed Current occupation: Desk work - right handed Review of Systems Const All systems reviewed & are unremarkable except as noted in HPI and below Physical Exam Vital Signs: BMI result Body Mass Index 30.9 Const General: no acute distress and alert Orientation/consciousness: patient oriented x3 Neuro General: patient oriented x3 Extrem Other: The patient was alert oriented and in no acute distress The incision is healing well with no erythema drainage or evidence of infection. Sutures removed and Steri-Strips applied She can make a fist and extend all her digits She can already do an early Dillon test and says it is already feeling better. Sensation is intact Cap refill is brisk Surgical findings: Thickened 1st dorsal compartment and a separate compartment for the EPB tendon with an hourglass deformity of the EPB tendon found Psych Appearance: grossly normal Affect: normal affect Attitude: cooperative Assessment & Plan Assessment & Plan (1) De Quervain's tenosynovitis, left: Code(s): M65.4 - Radial styloid tenosynovitis [de Quervain] Plan Assessment and plan: 1. Left de Quervain tenosynovitis, S/P release DOS: 10/25/23 The patient appears to be doing well post-operatively she is able to perform an easy Dillon test, which is negative I educated her about the post-operative course I discussed activity modifications, she is to lift nothing heavier than a cellphone for the next two weeks She will perform gentle ROM exercises at home She should gently massage about the incision site to reduce the risk of hypersensitivity She is very happy with the results of her surgery. She can follow up prn Scribed for Zohreh Mejia MD by Angelito Cohen, center medical specialist, on 11/09/23 at 2:50 PM, EST. Coding Level of Care Code Global (71668) Diagnoses De Quervain's tenosynovitis, left M65.4
[2023-11-09 14:33] VITALS: BMI 30.9
== END 2023-11-09 15:17 | disposition home or self-care (01) ==
PROVIDERS: PCP Internal Medicine; Visit Provider Orthopaedic Surgery
DX: M65.4 Radial styloid tenosynovitis [de Quervain] (principal)
CPT/HCPCS: 99024

== ENCOUNTER → 2023-11-09 14:12 | Outpatient (BNVA) | payer OTHER, SELFPAY | PROVIDERS: PCP Internal Medicine; Visit Provider Orthopaedic Surgery ==

== ENCOUNTER 2024-01-25 13:43 | Outpatient (AMB) | payer OTHER, SELFPAY ==
--- NOTE | 2024-01-25 13:45 | MHC.OFFVIS ---
Intake Visit Reasons: Sebaceous Cyst upper back Intake Note: Patient referred by PCP Dr. Mcmahon for cyst on upper back. Present for months. Patient c/o: scabby after picked on it. There is a blackhead on it. No hx of skin CA. 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 She has had this indeterminate time. His increasing in size, and, symptomatic patient like to have removed. Chart was reviewed and patient evaluated [facility], [facility] Medical History (Updated 01/25/24 @ 13:52 by JENNA Welch) Tendonitis of wrist, left History of COVID-19 Hypertension Asthma Surgical History (Updated 01/25/24 @ 14:17 by Tk Booth MD) History of breast lump/mass excision Hx of dilation and curettage H/O colonoscopy S/P arthroscopic surgery of left knee Social History Comment: counts correct Patient Tobacco Use Status: Never used Tobacco Current occupational status: employed Current occupation: Desk work - right handed Physical Exam Back/Spine/Pelvis Other: Proximally 3 x 2 cm right upper back sebaceous cyst. Office Procedures Excision Details: Risks, benefits, alternatives of excision of upper back sebaceous cyst reviewed the patient included but not limited to bleeding, infection, recurrence, numbness, pain, scarring, seroma formation, wound dehiscence and the patient wished to proceed. All questions answered. Consent signed. After appropriate positioning, patient underwent 1% lidocaine and Betadine prep and a transverse by elliptical incision around the mass in question measuring approximately 3 x 2 cm was uneventfully excised. Consistent with a sebaceous cyst. Specimen sent to pathology. Wound was irrigated, secured hemostasis, and closed using running 3-0 Vicryl suture followed by Steri-Strips and sterile dressings. Patient tolerated procedure well. 25582-[id number]/arms/legs 2.1-3cm Procedure code (CPT) selection complete Office Meds lidocaine 1 %-epinephrine 1:100,000 injection solution Performing Provider: Tk Booth MD Performing Location: [facility] [place] [facility] Administered by: Tk Booth MD on 01/25/24 14:16 Dose Route Admin Location Dispensed Lot Number Expiration Date NDC Quarter Backer 10 mL Infiltration 10 mL Assessment & Plan Assessment & Plan (1) Sebaceous cyst: Code(s): L72.3 - Sebaceous cyst Category: Surgical Plan: Patient has been given local instructions including avoiding strenuous activities, shower in 2 days, ice to the wound, Tylenol and Motrin p.r.n. and will see me as directed or p.r.n.. Orders: Orders AMB Excision Today L72.3 - Sebaceous cyst Medications: New lidocaine-epinephrine 1 %-1:100,000 10 mL Infiltration ONCE 30 mL 0RF L72.3 - Sebaceous cyst Coding Level of Care Code New Pt Level 5 (23196) Diagnoses Sebaceous cyst L72.3 CPT Codes Trunk/Arms/Legs - CPT: 91864-nrrxw/arms/legs 2.1-3cm ([id number])
== END 2024-01-25 14:17 | disposition home or self-care (01) ==
PROVIDERS: PCP Internal Medicine; Referring Provider Internal Medicine; Visit Provider Surgery
DX: L72.0 Epidermal cyst (principal)
CPT/HCPCS: 11403

== ENCOUNTER 2024-01-25 13:43 | Outpatient (REF) | payer OTHER, SELFPAY | END 2024-01-25 13:44 | disposition home or self-care (01) | LOC: HO.LNP 13:43 | PROVIDERS: PCP Internal Medicine; Referring Provider Internal Medicine; Visit Provider Surgery | DX: L72.3 Sebaceous cyst (principal) | CPT/HCPCS: 11403; 88304 ==

== ENCOUNTER 2024-02-01 11:10 | Outpatient (AMB) | payer OTHER, SELFPAY ==
--- NOTE | 2024-02-01 11:14 | A.OFFVIS_ITS ---
Intake Visit Reasons: S/P exc cyst~ Rt upper back Intake Note: Patient here s/p exc on Rt upper back. Reports incision healing well. Patient c/o: denies oozing, tenderness. Mildly itch along scar line. Some steri strips fell off. Author'S Agent Required: No Accompanied by: Self / Same As Patient Allergies No Known Allergies [No Known Allergies*] Allergy (Verified 02/01/24 11:15) HPI Comments Details: Patient presents for follow-up. She has no wound issues or complaints. Pathology is benign [facility] Medical History Tendonitis of wrist, left History of COVID-19 Hypertension Asthma Surgical History Hx of surgical procedure (01/25/24) History of breast lump/mass excision Hx of dilation and curettage H/O colonoscopy S/P arthroscopic surgery of left knee Social History Comment: counts correct Patient Tobacco Use Status: Never used Tobacco Current occupational status: employed Current occupation: Desk work - right handed Physical Exam Back/Spine/Pelvis Other: Wound is clean dry and intact healing very well Assessment & Plan Assessment & Plan (1) Postop check: Code(s): Z09 - Encounter for follow-up examination after completed treatment for conditions other than malignant neoplasm Category: Surgical Plan Patient has been given local instructions including avoiding strenuous activities next few weeks time and will otherwise follow-up p.r.n.. All questions answered Coding Level of Care Code Global (26796) Diagnoses Postop check Z09
== END 2024-02-01 11:16 | disposition home or self-care (01) ==
PROVIDERS: PCP Internal Medicine; Visit Provider Surgery
DX: Z09 Encounter for follow-up examination after completed treatment for conditions other than malignant neoplasm (principal)
CPT/HCPCS: 99024

== ENCOUNTER → 2024-02-01 11:10 | Outpatient (BNVA) | payer OTHER, SELFPAY | PROVIDERS: PCP Internal Medicine; Visit Provider Surgery ==

== ENCOUNTER 2024-03-28 12:05 | Outpatient (REF) | payer OTHER, SELFPAY ==
--- NOTE | ~2024-03-28 | MM_ITS ---
EXAMINATION: MM SCREENING DIGITAL BREAST TOMOSYNTHESIS, BILATERAL CLINICAL INFORMATION: Screening. Asymptomatic. COMPARISON: Mammography: This study is compared with prior exams dating back to 2020. TECHNIQUE: Digital breast tomosynthesis is performed in both the craniocaudal and mediolateral oblique views along with computer-aided detection (CAD). Synthesized 2D images are generated from the tomosynthesis. FINDINGS: The breasts are heterogeneously dense, which may obscure small masses (ACR BI-RADS breast composition Category c). There are no significant masses, abnormal calcifications, or other abnormalities. MM/MM tomosynthesis screening BI IMPRESSION: No mammographic evidence of malignancy. ASSESSMENT: BI-RADS BI-RADS 1 - Negative RECOMMENDATION: Routine annual mammography screening. 1 year F/U This examination should not preclude the clinical evaluation of a suspicious palpable abnormality. This patient's information was entered into a reminder system with a target due date for their next mammogram.
== END 2024-03-28 12:06 | disposition home or self-care (01) ==
LOC: HO.MAMMO 12:05
PROVIDERS: Absent Provider Student in an Organized Health Care Education/Training Program; PCP Internal Medicine; Visit Provider Internal Medicine
DX: Z12.31 Encounter for screening mammogram for malignant neoplasm of breast (principal)
CPT/HCPCS: 77063; 77067

== ENCOUNTER → 2024-03-28 12:15 | Outpatient (BNV) | payer OTHER, SELFPAY | PROVIDERS: Absent Provider Student in an Organized Health Care Education/Training Program; PCP Internal Medicine; Visit Provider Radiology Diagnostic Radiology | DX: Z12.31 Encounter for screening mammogram for malignant neoplasm of breast (principal) | CPT/HCPCS: 77063; 77067 ==

== ENCOUNTER 2024-07-25 12:09 | Outpatient (REF) | payer OTHER, SELFPAY ==
[2024-07-25 12:13] LABS: MANUAL DIFF FLAG NO
[2024-07-25 12:34] LABS: Basophils Percent Auto 0.4 % (0-2); Eosinophils Absolute Auto 0.1 X10*3/uL (0.0-0.4); Eosinophils Percent Auto 1.3 % (0-4); Hematocrit 38.1 % (37.0-47.0); Hemoglobin 12.8 g/dl (12.0-16.0); Imm Gran Abs Auto 0.02 X10*3/uL (0.00-0.03); Imm Gran Pct Auto 0.3 % (0.0-0.4); Lymphocytes Absolute Auto 2.3 X10*3/uL (1.2-4.9); Lymphocytes Percent Auto 29.4 % (20-40); Mean Corpuscular HGB Conc 33.6 g/dl (31.0-35.0); Mean Corpuscular Hemoglobin 30.5 pg (27.0-33.0); Mean Corpuscular Volume 90.7 fL (80.0-98.0); Mean Platelet Volume 9.6 fL (9.4-12.3); Monocytes Absolute Auto 0.7 X10*3/uL (0.1-1.2); Monocytes Percent Auto 8.9 % (2-11); Neutrophils Absolute Auto 4.7 x10*3/uL (2.0-8.3); Neutrophils Percent Auto 59.7 % (45-73); Platelet Count 355 X10*3/uL (160-400); Red Cell Distribution Width 12.3 % (11.0-16.0); White Blood Count 7.8 X10*3/uL (4.8-10.8)
[2024-07-25 12:45] LABS: Bacteria Urine Trace (None Seen); Hyaline Casts Urine 0-2 /LPF (0-2)
[2024-07-25 12:54] LABS: Alanine Aminotransferase 30 U/L (0-31); Albumin Level 4.2 g/dL (3.5-5.0); Alkaline Phosphatase 99 U/L (39-117); Anion Gap 11 (12-20); Aspartate Amino Transferase 30 U/L (5-31); Bilirubin Total 0.7 mg/dL (0.0-1.0); Blood Urea Nitrogen 17 mg/dL (9-16); Calcium 9.7 mg/dL (8.4-10.2); Carbon Dioxide 29 mmol/L (22-29); Chloride 103 mmol/L (96-108); Cholesterol 244 mg/dL (<200); Estimated Glomerular Filt Rate > 60; Glucose Fasting 79 mg/dL (60-99); HDL Cholesterol 73 mg/dL (>40); LDL Cholesterol Calculated 151 mg/dL (<100); Potassium 3.6 mmol/L (3.3-5.1); Sodium 139 mmol/L (135-145); Total Protein 7.5 g/dL (6.5-8.0); Triglycerides 103 mg/dL (<150)
[2024-07-25 13:05] LABS: Appearance Urine Clear; Color Urine Yellow; Glucose Urine UA Negative (Negative); Leukocyte Esterase Urine Small (1+) (Negative); Nitrite Urine Negative (Negative); PH 5.5 (5.0-9.0); Specific Gravity - Urine 1.025 (1.005-1.025); UACC Culture Trigger YES; UMIC TRIGGER UACC YES; Urine Blood Moderate (2+) (Negative); Urine Ketones Negative (Negative); Urine Protein Negative (Neg-Trace)
--- OUTSIDE RECORDS SUMMARY | 2024-08-01 13:40 | XMS_ITS ---
Author Name [facility] Organization Unknown Problems Problem Status Onset Date Problem Type Date of Resoluti on Source Pain in right ankle and joints of right foot active EncounterDiagnosisAct [facility] Pain in left ankle and joints of left foot active EncounterDiagnosisAct HHCCT
== END 2024-07-25 12:10 | disposition home or self-care (01) ==
LOC: HO.LNP 12:09
PROVIDERS: Visit Provider Internal Medicine
DX: Z00.00 Encounter for general adult medical examination without abnormal findings (principal); I10 Essential (primary) hypertension; E55.9 Vitamin D deficiency, unspecified; E78.00 Pure hypercholesterolemia, unspecified
CPT/HCPCS: 80053; 80061; 81001; 82306; 85025; 87086

== ENCOUNTER 2024-07-31 13:12 | Outpatient (REF) | payer OTHER, SELFPAY ==
--- NOTE | ~2024-07-31 | US_ITS ---
EXAMINATION: US EXTRACRANIAL CAROTID DUPLEX, BILATERAL CLINICAL INFORMATION: History of ischemic heart disease COMPARISON: None available. TECHNIQUE: Real-time ultrasound and Doppler techniques (integrating B-mode 2-D vascular images, Doppler spectral analysis and color-flow Doppler imaging) were utilized to interrogate the extracranial carotid arteries, the vertebral arteries and proximal subclavian arteries bilaterally. The degree of stenosis is determined by criteria similar to NASCET. FINDINGS: Right Side: 1. There is mild atherosclerotic plaque seen in the bifurcation/proximal ICA region. 2. The common carotid artery PSV proximally is 114 cm/s and distally 72 cm/s. 3. The proximal internal carotid artery velocities are 77 cm/s systolic and 32 cm/s diastolic. 4. The proximal external carotid artery PSV is 89 cm/s. 5. The vertebral artery shows antegrade flow. 6. The subclavian artery waveforms are stenotic, measuring 246 cm/s. Left Side: 1. There is mild atherosclerotic plaque seen in the bifurcation/proximal ICA region. 2. The common carotid artery PSV proximally is 111 cm/s and distally 80 cm/s. 3. The proximal internal carotid artery velocities are 101 cm/s systolic and 35 cm/s diastolic. 4. The proximal external carotid artery PSV is 102 cm/s. 5. The vertebral artery shows antegrade flow. 6. The subclavian artery waveforms are normal. Incidental note is made of multiple right thyroid nodules, the largest of which measures 3.4 x 2.7 x 2.3 cm. US/US carotid duplex BI IMPRESSION: 1. RIGHT: Minimal, non-hemodynamically significant stenosis of the proximal right internal carotid artery corresponding to a 0-49% stenosis by velocity criteria. 2. LEFT: Minimal, non-hemodynamically significant stenosis of the proximal left internal carotid artery corresponding to a 0-49% stenosis by velocity criteria. 3. Stenotic right subclavian artery measures greater than 200 cm/s. 4. Multiple right thyroid nodules measuring up to 3.4 cm. Recommend dedicated thyroid ultrasound to further characterize. Electronically signed by: Bree Daniels MD 08/22/2024 12:29 AM [facility]
== END 2024-07-31 13:13 | disposition home or self-care (01) ==
LOC: HO.US 13:12
PROVIDERS: PCP Internal Medicine; Visit Provider Internal Medicine
DX: I65.23 Occlusion and stenosis of bilateral carotid arteries (principal); Z82.49 Family history of ischemic heart disease and other diseases of the circulatory system; E04.2 Nontoxic multinodular goiter
CPT/HCPCS: 93880

== ENCOUNTER 2024-09-11 14:16 | Outpatient (REF) | payer OTHER, SELFPAY ==
--- NOTE | ~2024-09-11 | US_ITS ---
EXAMINATION: US THYROID HISTORY: THYROID NODULE TECHNIQUE: Real-time grayscale ultrasound imaging was performed and images were reviewed. COMPARISON: There are no prior studies for comparison. FINDINGS: SIZE: The right thyroid lobe measures 6.7 x 2.0 x 2.2 cm. The left thyroid lobe measures 4.7 x 1.3 x 1.4 cm. The isthmus measures 4 mm. FLOW: Flow to the gland is normal. ECHOGENICITY: The echotexture of the gland is heterogeneous on the right. NODULES: Multiple nodules are noted as described below: Nodule #: 1 Location: Right upper pole measuring 1.3 x 0.8 x 0.9 cm Shape: Round Margins: Smooth Echotexture: Hypoechoic Morphology: Solid Calcifications: None TIRADS: TR4: Moderately suspicious. Nodule #: 2 Location: Right mid to upper pole measuring 1.2 x 1.3 x 0.9 cm Shape: Ovoid Margins: Smooth Echotexture: Hypoechoic Morphology: Solid Calcifications: Possible punctate calcifications. TIRADS: TR5: Highly suspicious. Nodule #: 3 Location: Right lower pole measuring 2.8 x 2.8 x 2.9 cm Shape: Round Margins: Smooth Echotexture: Hypoechoic Morphology: Solid Calcifications: None TIRADS: TR4: Moderately suspicious. Nodule #: 4 Location: Right isthmus measuring 6 x 6 x 3 mm Shape: Ovoid Margins: Smooth Echotexture: Very hypoechoic Morphology: Solid Calcifications: The TIRADS: TR5: Highly suspicious. US/US thyroid IMPRESSION: Multiple suspicious thyroid nodules are identified on the right. Ultrasound-guided fine-needle aspiration of the 1.2 x 1.3 x 0.9 cm nodule in the right mid to upper pole and the 2.8 x 2.8 x 2.9 cm nodule at the right lower pole are recommended. The other nodules may be followed. ACR TI-RADS Guidelines TR1: Benign, No follow-up or biopsy required TR2: Not Suspicious, No biopsy indicated TR3: Mildly Suspicious, FNA if >= 2.5 cm, Follow if >= 1.5 cm TR4: Moderately Suspicious, FNA if >= 1.5 cm, Follow if >= 1.0 cm TR5: Highly Suspicious, FNA if >= 1.0 cm, Follow if >= 0.5 cm Electronically signed by: Rashi Pradhan MD 09/12/2024 07:49 AM EST
== END 2024-09-11 14:17 | disposition home or self-care (01) ==
LOC: HO.US 14:16
PROVIDERS: PCP Internal Medicine; Visit Provider Internal Medicine
DX: E04.1 Nontoxic single thyroid nodule (principal)
CPT/HCPCS: 76536

== ENCOUNTER → 2024-09-11 14:32 | Outpatient (BNV) | payer OTHER, SELFPAY | PROVIDERS: PCP Internal Medicine; Visit Provider Radiology Diagnostic Radiology | DX: E04.2 Nontoxic multinodular goiter (principal) | CPT/HCPCS: 76536 ==

== ENCOUNTER 2024-09-29 07:27 | Outpatient (REF) | payer OTHER, SELFPAY ==
--- OUTSIDE RECORDS SUMMARY | 2024-09-29 08:46 | XMS_ITS | Patient Health Record ---
Author Organization Paolo Mcmahon MD Address [address] [place] [id number] Care Team Providers Care Skiver Uppers Or Linings Name Role Phone Paolo Mcmahon Primary Care Provider [phone] Allergies No Known Allergies Results Component Value Reference Range Notes Complete Blood Count Auto Di ff Reviewed date:07/25/2024 12:42:32 PM Interpretation: Performing Lab:[facility], [address] [place] [phone] Notes/Report: White Blood Count 7.8 4.8-10.8 X10*3/uL [...] 0.0-0.2 /100WBC Neutrophils Absolute Auto 4.7 2.0-8.3 x10*3/uL Imm Gran Abs Auto 0.02 0.00-0.03 X10*3/uL Lymphocytes Absolute Auto 2.3 1.2-4.9 X10*3/uL Monocytes Absolute Auto 0.7 0.1-1.2 X10*3/uL Eosinophils Absolute Auto 0.1 0.0-0.4 X10*3/uL Basophils Absolute Auto 0.0 0.0-0.2 X10*3/uL NRBC Abs Auto 0.000 0.0-0.012 X10*3/uL Comprehensive [place]. Panel Fa st Reviewed date:07/25/2024 05:08:37 PM Interpretation: Performing Lab:[facility], [address] [place] [phone] Notes/Report: Sodium 139 135-145 mmol/L Potassium 3.6 [...] Panel Reviewed date:07/25/2024 01:24:48 PM Interpretation: Performing Lab:[facility], [address] [place] [phone] Notes/Report: Triglycerides 103 <150 mg/dL Desirable Triglyceride: [...] Total Reviewed date:07/25/2024 01:24:15 PM Interpretation: Performing Lab:[facility], [address] [place] [phone] Notes/Report: Vitamin D 25-OH Total 54.0 >30 [...] t Reviewed date:07/25/2024 05:10:32 PM Interpretation: Performing Lab:[facility], [address] [place] [phone] Notes/Report: Urine, Clean Catch Color Urine Yellow Appearance Urine Clear PH 5.5 5.0-9.0 Glucose Urine UA Negative Negative mg/dL Urine Blood Moderate (2+) Negative Specific [place] - Urine 1.025 1.005-1.025 Urine Protein Negative Neg-Trace mg/dL Urine Ketones Negative Negative mg/dL Nitrite Urine Negative Negative Leukocyte Esterase Urine Small (1+) Negative RBC Urine 6-10 0-2 /HPF WBC Urine 6-10 0-5 /HPF Squamous Epithelial Cell Urine 6-10 0-2 /HPF Bacteria Urine Trace None Seen Hyaline Casts Urine 0-2 0-2 /LPF Pathology Reviewed date:01/26/2024 07:20:40 PM Interpretation: Performing Lab:[facility], [address] [place] [phone] Notes/Report: --- Name: Lucy Carranza Age/Sex: 63/F : 1960 Unit#: [id number] Attend Dr: Tk Booth MD Re01/25/24 Status : DEP REF Location: [facility] Disch: --- SPEC : [id number] RECD : 01/25/24 STATUS: CHEL WIGGINS NUM: [id number] GLORIA: 01/25/24-[address]: Tk Booth MD ENTERED: 01/25/2415 10 SP TYPE: Surgical OTHR DR: Paolo Mcmahon MD ORDERED: Gross Micro L3 Diagnosis Skin, right upper ba ck cyst, excision: Benign epidermal cyst, ruptured, with foreign body giant cell reaction to keratin debris. Clinical History Rt. upper back EIC Microscopic Description Microscopic sections reviewed. Material Received Rt. upper back EIC Gross Description Received in formalin labeled ?mid (sic) upper back? is a 1.8 x 0.9 cm ellipse of slightly puckered and retract ed ortega skin and subcutaneous tissue excised to a maximum depth of 0.9 cm. The skin surface displays a central dilated pore containing a plug of flores-brown keratotic material. The tissue at the peripheral soft tissue margin is remarkable for a 0.6 cm in greatest dimension ruptured versus incised thin-walled flores-white cyst which contains and exudes flores-whit e cheesy and keratotic material. The margins are inked and the specimen serially sectioned t o reveal a thin-walled flores-white cyst containing flores-white cheesy and keratotic material communicating with the peripheral soft tissue margin and otherwise unremarkable dense flores-white fibrous dermal tissue. Also received is a 0.5 cm in greatest dimension aggregate of flores-white cheesy and keratotic material. The portion of skin is entirely submitted i n cassette A1. CEDS Copies To: Paolo Mcmahon MD [address] [place] [address] kT Booth MD [address] [facility], [address] [place] [address] [email or web address] CONTINUED ON NEXT PAGE --- Name: Lucy Carranza Age/Sex: 63/F : 1960 Unit#: [id number] Attend Dr: Tk Booth MD Re01/25/24 Status : DEP [facility]F [facility] Disch: --- SPEC : [id number] RECD : 01/25/24-150 STATUS: CHEL WIGGINS NUM: [id number] GLORIA: 01/25/24-[address]: Tk Booth MD ENTERED: 01/25/24-15 10 SP TYPE: Surgical OTHR DR: Paolo Mcmahon MD ORDERED: Bhavik Storey L3 --- Signed (signature on file) Kylee Silva 01/26/24 1342 --- END OF REPORT MM tomosynthesis screening B I Reviewed date:03/28/2024 04:06:12 PM Interpretation: Performing Lab: Notes/Report: [address] [place] [address] Mammography Report Signed Patient: Lucy Carranza MR#: [id number] 81 : 1960 Acct:[id number] Age/Sex: 64 / F ADM Date: 03/28/24 Loc: HO.MAMMO Attending Dr: Paolo Mcmahon MD Ordering Physician: Paolo Mcmahon MD Results: 1Ne gative Date of Service: 03/28/24 Follow Up: 1 Year From Orig inal Mammogram Procedure(s): MM tomosynthesis screening BI Accession Number(s): [id number] cc: Paolo Mcmahon MD EXAMINATION: MM SCREENING DIGITAL BREAST TOMOSYNTHESIS, BILATERAL CLINICAL INFORMATION: Screening. Asymptomatic. COMPARISON: Mammography: This study is compared with prior exams dating back to 2020. TECHNIQUE: Digital breast tomosynthesis is performed in both the craniocaudal and mediolateral oblique views along with computer-aided detection (CAD). Synthesized 2D images are generated from the tomosynthesis. FINDINGS: The breasts are heterogeneously dense, which may obscure small masses (ACR BI-RADS breast composition Category c). There are no significant masses, abnormal calcifications, or other abnormalities. MM/MM tomosynthesis screening BI IMPRESSION: No mammographic evidence of malignancy. ASSESSMENT: BI-RADS BI-RADS 1 - Negative RECOMMENDATION: Routine annual mammography screening. 1 year F/U This examination should not preclude the clinical evaluation of a suspicious palpable abnormality. This patient's information was entered into a reminder system with a target due date for their next mammogram. Dictated By: Alyssa Bonilla MD Signed By: <Electronically signed by Alyssa Bonilla MD in OV> 03/28/24 1236 DD/ 1230 TD/TT: Heel Layer: [address] [place] [address] Mammography Report Signed Patient: Alanis Carranza MR#: [id number] 81 : 1960 Acct:[id number] Age/Sex: 64 / F ADM Date: 03/28/24 Loc: HO.MAMMO Attending Dr: Paolo Mcmahon MD Ordering Physician: Paolo Mcmahon MD Results: 1Ne gative Date of Service: 03/28/24 Follow Up: 1 Year From Orig ina Mammogram Procedure(s): MM tomosynthesis screening BI Accession Number(s): [id number] cc: Paolo Mcmahon MD EXAMINATION: MM SCREENING DIGITAL BREAST TOMOSYNTHESIS, BILATERAL CLINICAL INFORMATION: Screening. Asymptomatic. COMPARISON: Mammography: This st udy is compared with prior exams dating back to 2020. TECHNIQUE: Digital breast tomosynthesis is performed in both the craniocaudal and mediolateral oblique views along with computer-aided detection (CAD). Synthesized 2D image s are generated from the tomosynthesis. FINDINGS: The breasts are heterogeneously dense, which may obscure small masses (ACR BI-RADS breast composition Category c). There are no significant masses, abnormal calcifications, or other abnormalities. MM/MM tomosynthesis screening BI IMPRESSION: No mammographic evidence of malignancy. ASSESSMENT: BI-RADS BI-RADS 1 - Negative RECOMMENDATION: Routine annual mammography screening. 1 year F/U This examination khushbu uld not preclude the clinical evaluation of a suspicious palpable abnormality. This patient's information was entered into a reminder system with a target due date for their next mammogram. Dictated By: Alyssa Bonilla MD Signed By: <Electronically signed by Alyssa Bonilla MD in OV> 03/28/24 1236 DD/ 1230 TD/TT: Heel Layer: Mendel Gastelum Reviewed date:07/25/2024 12:42:08 PM Interpretation: Performing Lab:[address] [phone] Notes/Report: Mendel Gastelum See Note Specimen held untested for 24 hours; Call to request Chemistry testing. Urine Culture Reviewed date:07/26/2024 07:22:03 PM Interpretation: Performing Lab:[address] [phone] Notes/Report: Urine Culture Report Result Urine Culture 10,000 to 50,000 cfu/ml Urine Culture Mixed bacterial vandana a characteristic of Urine Culture urogenital contamination. US carotid duplex BI Reviewed date:08/31/2024 12:30:45 PM Interpretation: Performing Lab: Notes/Report: [address] [address] Ultrasound Report Signed with Addenda Patient: Lucy Carranza MR#: [id number] [birth year] : 1960 Acct:[id number] Age/Sex: 64 / F ADM Date: 07/31/24 Loc: HO.US Attending Dr: Paolo Mcmahon MD Ordering Physician: Paolo Mcmahon MD Date of Service: 07/31/24 Procedure(s): US carotid duplex BI Accession Number(s): [id number] cc: Paolo Mcmahon MD ADDENDUM ADDENDUM #1 Results Acknowledgement: Exam results confirmed at 1:52 PM by Dennise Gallegos LPN. Barbara Ross, 08/24/2024 1:53 PM Electronically signed by: Bree Daniels MD 08/30/2024 05:46 PM [facility] Addendum Dictated By: Bessy Daniels Addendum Signed By: <Electronically signed by Bessy Daniels in OV> 08/30/24 1746 Addendum Cosigned By: DD/ /16/1339 TD/TT: 07/31/2405/16/1413 EXAMINATION: US EXTRACRANIAL CAROTID DUPLEX, BILATERAL CLINICAL INFORMATION: History of ischemic heart disease COMPARISON: None available. TECHNIQUE: Real-time ultrasound and Doppler techniques (integrating B-mode 2-D vascular images, Doppler spectral analysis and color-flow Doppler imaging) were utilized to interrogate the extracranial carotid arteries, the vertebral arteries and proximal subclavian arteries bilaterally. The degree of stenosis is determined by criteria similar to NASCET. FINDINGS: Right Side: 1. There is mild atherosclerotic plaque seen in the bifurcation/proximal ICA region. 2. The common carotid artery PSV proximally is 114 cm/s and distally 72 cm/s. 3. The proximal internal carotid artery velocities are 77 cm/s systolic and 32 cm/s diastolic. 4. The proximal external carotid artery PSV is 89 cm/s. 5. The vertebral artery shows antegrade flow. 6. The subclavian artery waveforms are stenotic, measuring 246 cm/s. Left Side: 1. There is mild atherosclerotic plaque seen in the bifurcation/proximal ICA region. 2. The common carotid artery PSV proximally is 111 cm/s and distally 80 cm/s. 3. The proximal internal carotid artery velocities are 101 cm/s systolic and 35 cm/s diastolic. 4. The proximal external carotid artery PSV is 102 cm/s. 5. The vertebral artery shows antegrade flow. 6. The subclavian artery waveforms are normal. Incidental note is made of multiple right thyroid nodules, the largest of which measures 3.4 x 2.7 x 2.3 cm. US/US carotid duplex BI IMPRESSION: 1. RIGHT: Minimal, non-hemodynamically significant stenosis of the proximal right internal carotid artery corresponding to a 0-49% stenosis by velocity criteria. 2. LEFT: Minimal, non-hemodynamically significant stenosis of the proximal left internal carotid artery corresponding to a 0-49% stenosis by velocity criteria. 3. Stenotic right subclavian artery measures greater than 200 cm/s. 4. Multiple right thyroid nodules measuring up to 3.4 cm. Recommend dedicated thyroid ultrasound to further characterize. Electronically signed by: Bree Daniels MD 08/22/2024 12:29 AM [facility] Dictated By: Bessy Daniels Signed By: <Electronically signed by Bessy Daniels in OV> 08/22/24 0029 DD/ 1339 TD/TT: 07/31/24 1413 Heel Layer: [address] [address] Ultrasound Report Signed with Peg Patient: Alanis Carranza MR#: [id number] 81 : 1960 Acct:[id number] Age/Sex: 64 / F ADM Date: 07/31/24 Loc: HO.US Attending Dr: Paolo Mcmahon MD Ordering Physician: Paolo Mcmahon MD Date of Service: 07/31/24 Procedure(s): US carotid duplex BI Accession Number(s): [id number] cc: Paolo Mcmahon MD ADDENDUM ADDENDUM #1 Results Acknowledgement: Exam results confirm ed at 1:52 PM by Dennise Gallegos LPN. Barbara Ross, 08/24/2024 1:53 PM Electronically daniele d by: Bree Daniels MD 08/30/2024 05:46 PM EST Addendum Dictated By : Bessy Daniels Addendum Signed By: <Electronically signed by Bessy Daniels in OV> 08/30/24 174 Addendum Cosigned By: DD/ /16/1339 TD/TT: 07/31/2405/16/1413 EXAMINATION: US EXTRACRANIAL [place] TID DUPLEX, BILATERAL CLINICAL INFORMATION: History of ischemic heart disease COMPARISON: None available. TECHNIQUE: Real-time ultrasound and Doppler techniques (integrating B-mode 2-D vascular images, Doppler spectral analysis and color-flow Doppler imaging) were utilized to interrog ate the extracranial carotid arteries, the vertebral arteries a nd proximal subclavian arteries bilaterally. The degree of stenosis i s determined by criteria similar to NASCET. FINDINGS: Right Side: 1. There is mild atherosclerotic plaque seen in the bifurcation/proximal ICA region. 2. The common caroti d artery PSV proximally is 114 cm/s and distally 72 cm/s. 3. The proximal internal carotid artery velocities are 77 cm/s systolic and 32 cm/s diastolic. 4. The proximal external carotid artery PSV is 89 cm/s. 5. The vertebral art danielito shows antegrade flow. 6. The subclavian artery waveforms are stenotic, measuring 246 cm/s. Left Side: 1. There is mild atherosclerotic plaque seen in the bifurcation/proximal ICA region. 2. The common caroti d artery PSV proximally is 111 cm/s and distally 80 cm/s. 3. The proximal internal carotid artery velocities are 101 cm/s systolic and 35 cm/s diastolic. 4. The proximal external carotid artery PSV is 102 cm/s. 5. The vertebral art danielito shows antegrade flow. 6. The subclavian artery waveforms are normal. Incidental note is m forrest of multiple right thyroid nodules, the largest of which measures 3. 4 x 2.7 x 2.3 cm. US/US carotid duplex BI IMPRESSION: 1. RIGHT: Minimal, non-hemodynamically significant stenosis of the proximal right inter nal carotid artery corresponding to a 0-49% stenosis by velocity criteria. 2. LEFT: Minimal, non-hemodynamically significant stenosis of the proximal left sales management intern al carotid artery corresponding to a 0-49% stenosis by velocity criteria. 3. Stenotic right subclavian artery measures greater than 200 cm/s. 4. Multiple right thyroid nodules measuring up to 3.4 cm. Recommend dedicated thyroid ultrasound to further characterize. Electronically daniele d by: Bree Daniels MD 08/22/2024 12:29 AM [facility] Dictated By: Bessy Daniels Signed By: <Electronically signed by Bessy Daniels in OV> 08/22/24 0029 DD/ 1339 TD/TT: 07/31/24 1413 Heel Layer: US thyroid Reviewed date:09/18/2024 11:34:41 AM Interpretation: Performing Lab: Notes/Report: [address] [address] Ultrasound Report Signed Patient: Lucy Carranza MR#: [id number] 81 : 1960 Acct:[id number] Age/Sex: 64 / F ADM Date: 09/11/24 Loc: HO.US Attending Dr: Paolo Mcmahon MD Ordering Physician: Paolo Mcmahon MD Date of Service: 09/11/24 Procedure(s): US thyroid Accession Number(s): [id number] cc: Paolo Mcmahon MD EXAMINATION: US THYROID HISTORY: THYROID NODULE TECHNIQUE: Real-time grayscale ultrasound imaging was performed and images were reviewed. COMPARISON: There are no prior studies for comparison. FINDINGS: SIZE: The right thyroid lobe measures 6.7 x 2.0 x 2.2 cm. The left thyroid lobe measures 4.7 x 1.3 x 1.4 cm. The isthmus measures 4 mm. FLOW: Flow to the gland is normal. ECHOGENICITY: The echotexture of the gland is heterogeneous on the right. NODULES: Multiple nodules are noted as described below: Nodule #: 1 Location: Right upper pole measuring 1.3 x 0.8 x 0.9 cm Shape: Round Margins: Smooth Echotexture: Hypoechoic Morphology: Solid Calcifications: None TIRADS: TR4: Moderately suspicious. Nodule #: 2 Location: Right mid to upper pole measuring 1.2 x 1.3 x 0.9 cm Shape: Ovoid Margins: Smooth Echotexture: Hypoechoic Morphology: Solid Calcifications: Possible punctate calcifications. TIRADS: TR5: Highly suspicious. Nodule #: 3 Location: Right lower pole measuring 2.8 x 2.8 x 2.9 cm Shape: Round Margins: Smooth Echotexture: Hypoechoic Morphology: Solid Calcifications: None TIRADS: TR4: Moderately suspicious. Nodule #: 4 Location: Right isthmus measuring 6 x 6 x 3 mm Shape: Ovoid Margins: Smooth Echotexture: Very hypoechoic Morphology: Solid Calcifications: The TIRADS: TR5: Highly suspicious. US/US thyroid IMPRESSION: Multiple suspicious thyroid nodules are identified on the right. Ultrasound-guided fine-needle aspiration of the 1.2 x 1.3 x 0.9 cm nodule in the right mid to upper pole and the 2.8 x 2.8 x 2.9 cm nodule at the right lower pole are recommended. The other nodules may be followed. ACR TI-RADS Guidelines TR1: Benign, No follow-up or biopsy required TR2: Not Suspicious, No biopsy indicated TR3: Mildly Suspicious, FNA if >= 2.5 cm, Follow if >= 1.5 cm TR4: Moderately Suspicious, FNA if >= 1.5 cm, Follow if >= 1.0 cm TR5: Highly Suspicious, FNA if >= 1.0 cm, Follow if >= 0.5 cm Electronically signed by: Rashi Pradhan MD 09/12/2024 07:49 AM EST Dictated By: Rashi Pradhan MD Signed By: <Electronically signed by Rashi Pradhan MD in OV> 09/12/24 0749 DD/ 1432 TD/TT: 09/11/24 1442 Heel Layer: [place] [address] Ultrasound Report Signed Patient: Alanis Carranza MR#: [id number] 81 : 1960 Acct:[id number] Age/Sex: 64 / F ADM Date: 09/11/24 Loc: HO.US Attending Dr: Paolo Mcmahon MD Ordering Physician: Paolo Mcmahon MD Date of Service: 09/11/24 Procedure(s): US thyroid Accession Number(s): [id number] cc: Paolo Mcmahon MD EXAMINATION: US THYROID HISTORY: THYROID NODULE TECHNIQUE: Real-time grayscale ultrasound imaging was performed and images were reviewed. COMPARISON: There ar e no prior studies for comparison. FINDINGS: SIZE: The right thyr oid lobe measures 6.7 x 2.0 x 2.2 cm. The left thyroid lobe measure s 4.7 x 1.3 x 1.4 cm. The isthmus measures 4 mm. FLOW: Flow to the gl and is normal. ECHOGENICITY: The echotexture of the gland is heterogeneous on the right. NODULES: Multiple nodules are noted as described below: Nodule #: 1 Location: Right uppe r pole measuring 1.3 x 0.8 x 0.9 cm Shape: Round Margins: Smooth Echotexture: Hypoechoic Morphology: Solid Calcifications: None TIRADS: TR4: Moderat layla suspicious. Nodule #: 2 Location: Right mid to upper pole measuring 1.2 x 1.3 x 0.9 cm Shape: Ovoid Margins: Smooth Echotexture: Hypoechoic Morphology: Solid Calcifications: Possible punctate calcifications. TIRADS: TR5: Highly suspicious. Nodule #: 3 Location: Right lowe r pole measuring 2.8 x 2.8 x 2.9 cm Shape: Round Margins: Smooth Echotexture: Hypoechoic Morphology: Solid Calcifications: None TIRADS: TR4: Moderat layla suspicious. Nodule #: 4 Location: Right isth mus measuring 6 x 6 x 3 mm Shape: Ovoid Margins: Smooth Echotexture: Very hypoechoic Morphology: Solid Calcifications: The TIRADS: TR5: Highly suspicious. ___ US/US thyroid IMPRESSION: Multiple suspicious thyroid nodules are identified on the right. Ultrasound-guided fine-needle aspiration of the 1.2 x 1.3 x 0.9 cm nodule in the right mid to upper pole and the 2.8 x 2.8 x 2.9 cm nodule at the right lower p ole are recommended. The other nodules may be followed. ACR TI-RADS Guidelines TR1: Benign, No follow-up or biopsy required TR2: Not Suspicious, No biopsy indicated TR3: Mildly Suspicio us, FNA if >= 2.5 cm, Follow if >= 1.5 cm TR4: Moderately Suspicious, FNA if >= 1.5 cm, Follow if >= 1.0 cm TR5: Highly Suspicio us, FNA if >= 1.0 cm, Follow if >= 0.5 cm Electronically daniele d by: Rashi Pradhan MD 09/12/2024 07:49 AM [facility] Dictated By: Rashi Pradhan MD Signed By: <Electronically signed by Rashi Pradhan MD in OV> 09/12/24 0749 DD/ 1432 TD/TT: 09/11/24 1442 Heel Layer: Reason For Referral Reason sebaceous cyst Diagnosis 1 Sebaceous cyst (L72. 3) Referral Organization Paolo Mcmahon MD Referring Provider First Name Paolo Referring Provider Last Name Salome Referring Provider Speciality Internal edicine Referred Provider Tk Booth Referred Provider Specialty Surgery General Notes Fidelia Miranda 11:25:58 AM EDT > patient is aware of appt Referral Priority Routine Referral Appointment Date 01/25/2024 Reason thyroid nodule Diagnosis 1 Thyroid nodule (E04. 1) Referral Organization Paolo Mcmahon MD Referring Provider First Name Paolo Referring Provider Last Name Salome Referring Provider Speciality Internal edicine Referred Provider Rashi Mendes Referred Provider Specialty Endocrinolog y General Notes Fidelia Miranda 0 09/18/2024 11:34:08 AM > info faxed to office Referral Priority Routine Medications Medication SIG (Take, Route, Frequency, Duration) [...] as needed Inhalation every 4 hrs Active Immunizations Vaccine Route Administration Date Status Comme nts Flu Vaccine Unknown 06/08/2012 Administered Flu Vaccine IM Intramuscular 06/20/2013 Administered [facility] Flu Vaccine IM Intramuscular 06/07/2014 Administered [facility] PPSV23 (Pnemovax) Unknown 06/07/2014 Administered given at work Flu Vaccine IM Intramuscular 05/29/2015 Administered [facility] Flu Vaccine ID Intradermal 05/06/2016 Administered [facility] - Afluria 0.5 ML Flu Vaccine IM Intramuscular 05/06/2017 Administered pt wa s given the vaccine at [facility] on [facility]. Fluarix Quadrivalent IM Intramuscular 05/11/2018 Administe red pt was given the vaccine at [facility] in [place]. TDaP IM Intramuscular 07/16/2018 Administered pt was given the vaccine at [facility] on [facility] [employer] [facility]. Tetanus Unknown 07/16/2018 Administered Shingrix IM Intramuscular 11/28/2018 Administered Shingrix IM Intramuscular 04/17/2019 Administered Fluarix Quadrivalent Unknown 05/10/2019 Administered [employer]T WORK PPSV23 (Pnemovax) IM Intramuscular 10/02/2019 Administered Fluarix Quadrivalent Unknown 05/08/2020 Administered At work Covid Vaccine Unknown 09/11/2020 Administered Pfizer Covid Vaccine Unknown 10/05/2020 Administered Pfizer Fluarix Quadrivalent Unknown 05/07/2021 Administered at work SARS-COV-2 Pfizer Unknown 06/19/2021 Administered Fluarix Quadrivalent Unknown 05/13/2022 Administered [facility] SARS-COV-2 Pfizer Unknown 06/22/2022 Administered Fluarix Quadrivalent IM Intramuscular 05/13/2023 Administe courtney Fluarix Quadrivalent - 150 IM Intramuscular 06/01/2024 Administered Social History Tobacco Use: Social History Observation [...] Never (0 point) Points 1 Interpretation Negative Problems Problem Type SNOMED Code ICD Code Onset Dates Problem Status W/U Status Risk Notes Problem 248789981 Thyroid nodule (E04.1) Active confirm ed Problem 77711542 Vitamin D defici ency (E55.9) Active confirmed Problem 02144074 Irritable bowel syndrome without diarrhea (K58.9) Active confirmed Problem 94407106 Essential hypert ension (I10) Active confirmed Problem 359393278 Mild intermitten t asthma without complication (J45.20) Active confirmed Problem 406623249 Rosacea (L71.9) Active confirmed Problem 375460606 History of hemat uria (Z87.448) Active confirmed Problem 087603516 Cervical disc di sease (M50.90) Active confirmed Problem 15536994 Intrinsic eczema (L20.84) Active confirmed Problem 66256473 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) Active confirm ed Problem 839314555 Panic attack (F41.0) Active confirmed Problem 230997841 Pure hypercholesterolemia (E78.00) Active confirmed Problem 44143260 Non-seasonal all ergic rhinitis due to pollen (J30.1) Active confirmed Problem 06949661 Abnormality of t ongue (Q38.3) Active confirmed Problem 191925571 Bilateral caroti d artery disease, 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) Active confirmed Vital Signs Blood pressure diastolic 78 mm Hg 07/24/2024 Height 65 in 08/28/2024 weight at home 178 BP not taken today no temp Blood pressure systolic 128 mm Hg 07/24/2024 Weight 178 lbs 08/28/2024 weight at home 178 BP not taken today no temp BMI 29.62 kg/m2 08/28/2024 weight at home 178 BP not taken today no temp Encounters Encounter Location Date Provider Diagnosis Paolo Mcmahon MD [address] [place] [address] [id number] 06/01/2024 Paolo Mcmahon Encounter for immuni zation Z23 Paolo Mcmahon MD [address] [place] [address] [id number] 07/25/2024 Paolo Mcmahon Blood tests for rout ine general physical examination Z00.00 ; Essential hypertension I10 ; Vitamin D deficiency E55.9 and Pure hypercholesterolemia E78.00 Paolo Mcmahon MD [address] [place] [address] [id number] 01/18/2024 Paolo Mcmahon Sebaceous cyst L72.3 ; Essential hypertension I10 and Mild intermittent asthma without complication J45.20 Paolo Mcmahon MD [address] [place] [address] [id number] 02/03/2024 Paolo Mcmahon Mild intermittent as thma without complication J45.20 and Moderate asthma with acute exacerbation, unspecified whether persistent J45.901 Paolo Mcmahon MD [address] [place] [address] [id number] 07/24/2024 Paolo Mcmahon Essential hypertensi on I10 ; Annual physical exam Z00.00 ; Vitamin D deficiency E55.9 ; Pure hypercholesterolemia E78.00 ; Family history of carotid endarterectomy Z82.49 ; Mild intermittent asthma without complication J45.20 and Panic attack F41.0 Paolo Mcmahon MD [address] [place] [address] [id number] 08/28/2024 Paolo Bombardier Thyroid nodule E04.1 and Bilateral carotid artery disease, unspecified type I77.9 Paolo Mcmahon MD [address] [place] [address] [id number] 12/02/2023 Paolo Mcmahon MD [address] [facility] [address] [place] [address] [id number] 12/09/2023 Paolo Mcmahon Motion sickness, subsequent encounter T75.3XXD Paolo Mcmahon MD [address] [facility] [address] [place] [address] [id number] 07/09/2024 Paolo Mcmahon 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20) will continue current regiment 02/03/2024 Moderate asthma with acute exacerbation, unspecified whether persistent (ICD-10 - J45.901) patient verebalized undertandng of medication and directions for use 07/24/2024 Essential hypertensi on (ICD-10 - I10) with good readings, will continue curent regiment and will contiue to monitor 07/24/2024 Annual physical exam (ICD-10 - Z00.00) labs reviewed and discussed with patient 08/28/2024 Thyroid nodule (ICD- 10 - E04.1) pending diagnostic testing, repeat carotid us in [address] to put that in the future so put it in one year and will repeat it at two/ order put in future folder for 202608/28/2024 Bilateral carotid artery disease, unspecified type (ICD-10 - I77.9) discussed findings of recent Carotid US, will follow up of 2 years with repeat 12/09/2023 Motion sickness, subsequent encounter (ICD-10 - T75.3XXD) 07/09/2024 Recurrent cold sores (ICD-10 - B00.1) 07/25/2024 Vitamin D deficiency (ICD-10 - E55.9) 01/18/2024 Mild intermittent asthma without complication (ICD-10 - J45.20) stable, will continue current regiment 07/24/2024 Vitamin D deficiency (ICD-10 - E55.9) 07/25/2024 Pure hypercholesterolemia (ICD-10 - E78.00) 07/24/2024 Pure hypercholesterolemia (ICD-10 - E78.00) has not had blood work yet,pending labs 07/24/2024 Family history of carotid endarterectomy (ICD-10 - Z82.49) 07/24/2024 Mild intermittent asthma without complication (ICD-10 - J45.20) stable, will cntinue current regiment 07/24/2024 Panic attack (ICD-10 - F41.0) doing well, will continue current regiment Plan Of Treatment Pending Test Test Name Order Date Electrocardiogram (EKG) 02/13/2016 Electrocardiogram (EKG) 03/11/2017 BONE DENSITY DEXA 02/28/2021 US CAROTID BILATERAL DOPPLER 07/24/2024 MR breast BI wo/w con 04/22/2023 MR breast BI wo con 04/13/2023 US thyroid 08/28/2024 Next Appt Details Provider Name:Paolo holland, 01/29/2025 03:00:00 PM, [address] [place] [address], [address] [place] [address], [phone], Provider Name:Paolo holland, 07/17/2025 07:15:00 AM, [address] [place] [address], [place] [address], [place], [place], [phone], Provider Name:Paolo holland, 07/26/2025 02:30:00 PM, [address] [place] [address], [place] [address], [place], [place], [phone], Insurance Providers Payer Name Payer Address Payer Phone Subscriber Number Group Number Insured Name Patient Relationship to Insured Coverage Start Date Coverage End Date [address] [place] [phone] [id number] Lucy Carranza Self - patient is the insured Medical (General) History Medical History History ICD Code Cysto - 10/17/[address] and cysto 05/05 colonoscopy 2011 due in 10 years: Colono scopy 05/04/22 10yr repeat Surgical History Surgery Date(Month/Year) Excision of Lesion, LT Upper back - Dr. Yandy Redd 01/2019
--- OUTSIDE RECORDS SUMMARY | 2024-09-29 08:46 | XMS_ITS | Clinical Summary ---
Author Organization [facility] Address [address] [place] [address] Care Team Providers Care Stationary Steam Engineer Name Role Phone Paolo Mcmahon MD Primary Care Provider [phone] Allergies No known active allergies Social History [...] age to complete this topic Care Teams Stationary Steam Engineer Relationship Specialty Start Date End Date Paolo Mcmahon MD [address] [place] [address] Dr [address] [place] [address] [place] [address] PCP - General Internal Medicine 06/13/24
[2024-09-29 09:40] LABS: Free T4 (Free Thyroxine) 1.06 ng/dL (0.71-1.85); Thyroid Stimulating Hormone 0.61 uIU/mL (0.32-4.0)
== END 2024-09-29 07:28 | disposition home or self-care (01) ==
LOC: HO.LAB 07:27
PROVIDERS: PCP Internal Medicine; Visit Provider Student in an Organized Health Care Education/Training Program
DX: E04.2 Nontoxic multinodular goiter (principal)
CPT/HCPCS: 36415; 84439; 84443

== ENCOUNTER → 2024-09-29 07:27 | Outpatient (AMB) | payer OTHER, SELFPAY ==
--- OUTSIDE RECORDS SUMMARY | 2024-09-29 07:30 | XMS_ITS | Patient Health Record ---
Author Organization [facility] Address [address] [place] [address] Care Team Providers Care Flight Engineer Manager Name Role Phone Paolo Mcmahon MD Primary Care Provider Rashi Greer [phone] ALLERGIES No Known Allergies REASON FOR REFERRAL No Information MEDICATIONS Medication SIG (Take, Route, Frequency, Duration) Notes Start Date End Date Status Albuterol Sulfate Ac tive Suprep Bowel Prep 1 KIT as directed Oral ly once for 1 dose 01/06/2012 Active Valsartan-hydroCHLOROthiaz iris 160-12.5 MG TAKE 1 TABLET BY MOUTH EVERY DAY Oral for 90 Active Flonase Allergy Relief 50 MCG/ACT 1 spray in each nostril Nasally Once a day for 30 day(s) 03/11/2022 Active Ventolin HFA 108 (90 Base) MCG/ACT 1 puff as needed Inhalation every 4 hrs 03/11/2022 Active Ibuprofen Active IMMUNIZATIONS Vaccine Route Administration Date Status Comme nts Influenza Unknown 07/15/2021 Administered SOCIAL HISTORY Sex Assigned At : Social History Observation Description Sex Assigned At Unknown PROBLEMS Problem Type ICD Code Onset Dates Problem Status W/U Status Risk SNOMED Code Notes Problem Encounter for screening for malignant neoplasm of colon (Z12.11) Active confirmed Screening for malignant neoplasm of colon (157672901) Problem Encounter for other preprocedural examination (Z01.818) Active confirmed Pre-procedure evaluation check (088861948) Problem Diverticulosis of colon (K57.30) Active confirmed Diverticulosi s of colon (991186878) PLAN OF TREATMENT Future Test Test Name Order Date COLONOSCOPY 01/06/2012 COLONOSCOPY 03/11/2022 Insurance Providers Payer Name Payer Address Payer Phone Subscriber Number Group Number Insured Name Patient Relationship to Insured Coverage Start Date Coverage End Date [facility] [address] [facility] [place], [place] [phone] [id number] АННА ARAUJO Self - patient is the insured MEDICAL (GENERAL) HISTORY Medical History History ICD Code Asthma Denies NM,DM,CVA,renal disease HTN Negative colonoscopy in 01/2012 Surgical History Surgery Date(Month/Year) Breast cyst removed 1996 D & C 2021 Left knee surgery
--- OUTSIDE RECORDS SUMMARY | 2024-09-29 07:30 | XMS_ITS ---
Author Organization Paolo Mcmahon MD Address [address] [place] [phone] Care Team Providers Care Human Resource Professional Name Role Phone Paolo Mcmahon Primary Care [...] Location Date Provider Diagnosis Paolo Mcmahon MD [address] [place] [address] [address] [place], [place] [phone] 07/24/2024 Paolo Mcmahon Essential hypertensi on I10 [...] 6 Months, Reason: Provider Name:Paolo Burt ier, 01/29/2025 03:00:00 PM, [address] [facility], [address], [place], [phone], Provider Name:Paolo Salcedo Balbirchantal ier, 07/17/2025 07:15:00 AM, [address] [facility], [address], [place], [phone], Provider Name:Paolo Denisse Balbirchantal ier, 07/26/2025 02:30:00 PM, [address] [facility], [address] [facility], [place], [place], [phone], Progress Notes * Lucy ARAUJO PDOB: [birth year] (64 yo F)Acc No.[id number]:07/24/2024 Progress Notes Patient:?Lucy Araujo Provider:?Paolo Mcmahon MD :1960???Age:64 Y???Sex:Female D ate:07/24/2024 Address:[address] [place] [id number] Subjective: * Chief Complaints: * ???Annual visitPatient did n ot have labs will be done 07-25-24 here in the office * HPI: ???Depression Screening:?PHQ-9?Little interest or pleasure in doing things?Not at all,?Feeling down, depressed, or hopeless?Not at all,?Trouble falling or staying asleep, or sleeping too much?Not at all,?Feeling tired or having little energy?Not at all,?Poor appetite or overeating?Not at all,?Feeling bad about yourself or that you are a failure, or have let yourself or your family down?Not at all,?Trouble concentrating on things, such as reading the newspaper or watching television?Not at all,?Moving or speaking so slowly that other people could have noticed; or the opposite, being so fidgety or restless that you have been moving around a lot more than usual?Not at all,?Thoughts that you would be better off or of hurting yourself in some way?Not at all,?Total Score?0.?Interpretation and Intervention?Depression Screening Findings?Negative,?Follow-Up for Depression?: review of PHQ-9 found negative result, no follow-up needed.?Communication Needs:?Communication Needs?Does the patient have a hearing impairment?No,?Does the patient have a vision impairment??Yes,?If yes, what is the vision impairment??Glasses,?Does the patient have a cognition impairment??No.?Fall Risk:?History?Have you had any falls with injury in the past year??No,?Have you had two or more falls in the past year??No.?SDOH Questions:?SDOH Questions?In the past year have you been worried about losing housing??No,?In the past year have you or any family members you live with been unable to get any of the following when it was really needed? Check all that apply:?None.?Symptom(s):? patient is a 64 yo female here for annual visit , follow up of chronic issues, here for yearly physical. * ROS:?General/Constitutional:?Patient denies?fatigue , headache.?Change in appetite?denies.?Chills?denies.?Fever?denies.?Ophthalmologic:?Blurred vision?denies.?Discharge?denies.?Pain?denies.?ENT:?Patient denies?decreased sense of smell , any loss of taste , sore throat.?Decreased hearing?denies.?Sore throat?denies.?Swollen glands?denies.?Endocrine:?Cold intolerance?denies.?Excessive thirst?denies.?Heat intolerance?denies.?Weight loss?denies.?Respiratory:?Cough?denies.?Shortness of breath at rest?denies.?Shortness of breath with exertion?denies.?Wheezing?denies.?Cardiovascular:?Chest pain at rest?denies.?Chest pain with exertion?denies.?Irregular heartbeat?denies.?Shortness of breath?denies.?Gastrointestinal:?Abdominal pain?denies.?Change in bowel habits?denies.?Diarrhea?denies.?Nausea?denies.?Rectal bleeding?denies.?Vomiting?denies .?Genitourinary:?Blood in urine?denies.?Difficulty urinating?denies.?Frequent urination?denies.?Urinary incontinence?Denies.?Musculoskeletal:?Patient denies?muscle aches.?Painful joints?denies.?Weakness?denies.?Peripheral Vascular:?Patient denies?red and blue toes.?Skin:?Dry skin?denies.?Itching?denies.?Denies?Mole(s),? changes in moles, new moles or any lesions of concern.?Denies?Photosensitivity.?Rash?denies.?Neurologic:?Dizziness?denies.?Fainting?denies.?Headache?denies.? * Medical History:? * Surgical History:? * Hospitalization/Major Diagno stic Procedure:? * Family History:?Father: dece ased, hypertension, renal cell cancer.?Mother: , breast cancer, lung cancer.?2 brother(s) . .? mother cancer , Denies mental health/substance abuse family history, Denies mental health/substance abuse family history, Denies mental health/substance abuse family history, Denies mental health/substance abuse family history. * Social History:?Tobacco Use:?Tobacco Use/Smoking?Patient is a?nonsmoker,?Additional Findings: Tobacco Non-User?Current non-smoker, currently using no form of tobacco.?Drugs/Alcohol:?Alcohol Screen?Did you have a drink containing alcohol in the past year??Yes,?How often did you have a drink containing alcohol in the past year??Monthly or less (1 point),?How many drinks did you have on a typical day when you were drinking in the past year??1 or 2 drinks (0 point),?How often did you have 6 or more drinks on one occasion in the past year??Never (0 point),?Points?1,?Interpretation?Negative.?Miscellaneous:?Caffeine: yes, frequency:, 1-2 cups per day. no Children. Community involvements: yes. no Exercise. Home smoke detector use: yes. Housing: owning. Living with: spouse. Marital status: . Occupation: works full-time. Pets: dog x1. Travel outside of the [place]: yes, [place]. * Medications:?TakingFluticaso ne Propionate 50 MCG/ACT Suspension SPRAY 2 SPRAYS [...] bedtime as needed Orally Twice a dayTaking Valsartan- hydroCHLOROthiazide 160-12.5 MG Tablet TAKE 1 TABLET BY [...] reviewed and reconciled with the patient * Allergies:?N.K.D.A.yes[Aller gies Verified] Objective: * Vitals:?Ht: 65, Wt:180, BMI: 29.95, BP:128/78. * Examination: ???General Examination: ?GENERAL APPEARANCE:?well developed, well nourished, in no acute distress.?HEAD:?normocephalic, atraumatic.?EYES:?pupils equal, round, reactive to light and accommodation, sclera non-icteric.?EARS:?normal.?ORAL CAVITY:?mucosa moist.?THROAT:?clear.?NECK/THYROID:?neck supple, full range of motion, no cervical lymphadenopathy, no bruits.?SKIN:?warm and dry, no suspicious lesions.?HEART:?regular rate and rhythm, S1, S2 normal, no murmurs.?LUNGS:?clear to auscultation bilaterally.?BREASTS:?done by automotive parts counter person.?ABDOMEN:?soft, nontender, nondistended, bowel sounds present, normal, no organomegaly , no masses palpable.?RECTAL EXAM:?done by automotive parts counter person.?FEMALE GENITOURINARY:?done by automotive parts counter person.?EXTREMITIES:?no clubbing, cyanosis, or edema.?NEUROLOGIC:?nonfocal, motor strength normal upper and lower extremities, sensory exam intact.? Assessment: * Assessment: 1.?Annual physical exam - Z0 0.00 (Primary)?2.?Essential hypertension - I10?3.?Vitamin D deficiency - E55.9?4.?Pure hypercholesterolemia - E78.00?5.?Family history of carotid endarterectomy - Z82.49?6.?Mild intermittent asthma without complication - J45.20?7.?Panic attack - F41.0? Plan: * Treatment: 2.?Essential hypertension? Continue Valsartan-hydroCHLOROthiazide Tablet, 160-12.5 MG, TAKE 1 TABLET BY MOUTH EVERY DAY FOR 90 DAYS.?? Notes: with good readings, will continue curent regiment and will contiue to monitor?? 3.?Pure hypercholesterolemia ? Notes: has not had blood work yet,pending labs?? 4.?Family history of carotid endarterectomy?Imaging: US CAROTID BILATERAL DOPPLER 5.?Mild intermittent asthma without complication? Continue Fluticasone Propionate Suspension, 50 MCG/ACT, SPRAY 2 SPRAYS IN EACH NOSTRIL ONCE A DAY;?Continue Wixela Inhub Aerosol Powder Breath Activated, 250-50 MCG/ACT, INHALE 1 PUFF INTO THE LUNGS TWICE A DAY FOR 90 DAYS;?Continue Albuterol Sulfate Nebulization Solution, (2.5 MG/3ML) 0.083%, as directed, Inhalation, every 6 hrs;?Continue Albuterol Sulfate HFA Aerosol Solution, 108 (90 Base) MCG/ACT, 1 puff as needed, Inhalation, every 4 hrs.?? Notes: stable, will cntinue current regiment?? 6.?Panic attack? Continue LORazepam Tablet, 0.5 MG, 1 tablet at bedtime as needed, Orally, Twice a day.?? Notes: doing well, will continue current regiment?? * Procedure Codes:? * Preventive Medicine:? ??Counseling:?Care goal follow-up plan:?Counseling for abnormal BMI provided?Yes,?Above Normal BMI Follow-up?Giving encouragement to exercise.? * Follow Up:?6 Months * * Sign off status: Completed true * Provider:?Paolo Mcmahon MD Date:?1 09/24/2023 Generated for Tali childs/Judy/Wilfred on:?09/29/2024 07:29 AM EST History and Physical Notes * HPI [...] patient have a vision impairmen t?: Yes ?If yes, what is the vision impairment?: Glasses Does the patient have a cognition impair ment?: No Examination Category Sub-Category Detail Notes Category Not es General Examination GENERAL APPEARANCE: well dev eloped, well nourished, in no acute distress HEAD: normocephalic, atrau matic EYES: pupils equal, round, reactive to light and accommodation, sclera non- icteric EARS: normal THROAT: clear NECK/THYROID: neck supple, [...] cyanosi s, or edema BREASTS: done by automotive parts counter person RECTAL EXAM: done by automotive parts counter person FEMALE GENITOURINARY: done by automotive parts counter person ORAL CAVITY: mucosa moist
--- OUTSIDE RECORDS SUMMARY | 2024-09-29 07:30 | XMS_ITS ---
Author Organization Paolo Mcmahon MD Address [address] [place] [phone] Support Name Relationship Address Phone Paolo Mcmahon Caregiver [address] [facility] [address] [address] [place] [phone] Nicolas Snyder Caregiver [address] [facility] [address] [address] [place] [address] [phone] Akosua Cazares Caregiver [address] [facility] [address] [place] [address] [phone] Rashi Luna Caregiver [address] [facility] [address] [address] [place] [phone] Sejal Graff Caregiver [address] [facility] [address] [place] [phone] NEGRITA Kimble [facility]giver [facility] [address] [place] [phone] Ramana Vieira Caregiver [address] [facility] [address] [address] [place] [phone] Larisa Redd Caregiver [address] [facility] [address] [address] [place] [phone] Unavailable Emergency Contact Unknown [phone] Lucy Araujo Guarantor Unknown [phone] Care Team Providers Care Deputy General Counsel Name Role Phone Paolo Mcmahon Primary Care Provider [phone] Allergies No Known Allergies REASON FOR VISIT review US had Covid last week video [phone] Medications Medication SIG (Take, Route, Frequency, Duration) [...] Problem Status W/U Status Risk Notes Problem 240541386 Thyroid nodule (E04.1) Active confirmed Problem 984987096 Bilateral carotid artery disease, 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) Active confirmed Vital Signs Height 65 in 08/28/2024 Weight 178 lbs 08/28/2024 BMI 29.62 kg/m2 08/28/2024 weight at home 178 BP not ta melissa today no temp Encounters Encounter Location Date Provider Diagnosis Paolo Mcmahon MD [address] [facility] [address] [place], [place] [phone] 08/28/2024 Paolo Mcmahon Thyroid nodule E04.1 and [...] DOPPLER 08/28/2025 Next Appt Details Provider Name:Paolo Burt ier, 01/29/2025 03:00:00 PM, [address] [place] [address], [place] [address], [place], [place], [phone], Provider Name:Paolo Burt ier, 07/17/2025 07:15:00 AM, [address] [place] [address], [place] [address], [place], [place], [phone], Provider Name:Paolo Burt ier, 07/26/2025 02:30:00 PM, [address] [place] [address], [place] [address], [place], [place], [phone], Progress Notes * Lucy ARAUJO PDOB: [birth year] (64 yo F)Acc No.[id number]:08/28/2024 Patient:?Tere Lucy P Provider:?Paolo Mcmahon MD :1960???Age:64 Y???Sex:Female D ate:08/28/2024 Address:[address] [place], [place] [phone] Subjective: * Chief Complaints: * ???review US had Covid last week video [phone] * HPI: ???Symptom(s):?Telehealth?Location of provider rendering services:?[address] [place] [address], [place] [address],?Location of patient:?other (please specify) Patient is at work in [employer],?Patient identification confirmed using:?Name, ,?Telehealth method:?Video conference where patient is visible to the provider of care,?Consent:?Patient verbally consented to treatment, Patient verbally consented to billing insurance company, Patient informed of any privacy concerns related to method of visit,?Total time spend talking with patient (minutes)?15.? patient is a 64 yo female here for follow up. has covid. didn't get it in chest. just stuffy nose. * ROS:?General/Constitutional:?Denies?Chills.?Denies?Fatigue.?Denies?Fever.?Denies?Headache.?ENT:?Patient denies?decreased sense of smell , any loss of taste , sore throat.?Denies?Sore throat.?Respiratory:?Denies?Cough.?Denies?Shortness of breath at rest.?Denies?Shortness of breath with exertion.?Gastrointestinal:?Denies?Diarrhea.?Denies?Nausea.?Musculoskeletal:?Patient denies?muscle aches.?Peripheral Vascular:?Patient denies?red and blue toes.? * Medical History:? * Surgical History:? * Hospitalization/Major Diagno stic Procedure:? * Medications:?TakingTriamcino lone Acetonide 0.5 % Cream 1 application to [...] reviewed and reconciled with the patient * Allergies:?N.K.D.A.yes[Donna mike Verified] Objective: * Vitals:?Ht: 65, Wt: 178, BMI :29.62, Wt-k.74 weight at home 178 BP not taken today no temp. * Examination: ???General Examination: ?GENERAL APPEARANCE:?alert, well hydrated, in no distress.? Assessment: * Assessment: 1.?Thyroid nodule - E04.1 (P rimary)?2.?Bilateral carotid artery disease, unspecified type - I77.9? Plan: * Treatment: Notes: pending diagnostic testing, repeat carotid us in [address] years but [address] way to put that in the future so put it in one year and will repeat it at two/ order put in future folder for 2026??2.?Bilateral carotid artery disease, unspecified type? Notes: discussed findings of recent Carotid US, will follow up of 2 years with repeat?? * Procedure Codes:?80162 SYNCH AUDIO-VIDEO EST LOW 20 * * Sign off status: Completed true * Provider:?Paolo cMmahon MD Date:?0 08/28/2024 Generated for Tali childs/Judy/eTransmitting on:?09/29/2024 07:30 AM EST History and Physical Notes * HPI (History of Present Illness) Category Sub-Category Detail Notes Category Not es Symptom(s) Telehealth [facility] rendering services:: [address], [address] patient is a 64 yo female here for follow up. has covid. didn't get it in chest. just stuffy nose Location of patient:: other (please spec shabbir) Patient is at work in [employer] Patient identification confirmed using:: Name, Telehealth method:: [...]
--- OUTSIDE RECORDS SUMMARY | 2024-09-29 07:31 | XMS_ITS | Clinical Summary ---
Author Organization [facility] Address [address] [place] [id number] Care Team Providers Care Compliance Officer Name Role Phone Paolo Mcmahon MD Primary Care Provider [phone] Allergies No known active allergies Social History Tobacco Use Types Packs/Day Years Used Date Smoking Tobacco: Never Assessed Sex and Gender Information Value Date Recorded Sex Assigned at Not on file Gender Identity Not on file Sexual Orientation Not on file Plan of Treatment Health Maintenance Due Date Last Done Comments Hepatitis C Virus Screening 1960 HIV Screening 1974 DTaP/Tdap/Td Vaccines (1 - Tdap) 1980 Pap Smear (Ages 21-65) 1982 Mammogram 2001 Colonoscopy 2006 Pneumococcal Vaccines 50+ (1 of 1 - PCV) 2011 Zoster (Shingles) Vaccine (1 of 2) 2011 COVID-19 Vaccine (2023-2 5 season) 2024 RSV Vaccine 60 years and old er and Patients (1 - 1-dose 75+ series) 2036 Influenza Vaccine Completed 06/01/2024 Hepatitis B Vaccines Aged Out No long er eligible based on patient's age to complete this topic Pneumococcal Vaccine: Pediat stuart (0-5 Years) and At-Risk Patients (6 to 49 Years) Aged Out No longer eligible b ased on patient's age to complete this topic Care Teams Compliance Officer Relationship Specialty Start Date End Date Paolo Mcmahon MD [address] [place] [address] Dr [address] [place] [address] [place] [id number] PCP - General Internal Medicine 06/13/24
--- OUTSIDE RECORDS SUMMARY | 2024-09-29 07:31 | XMS_ITS ---
Author Organization Paolo Mcmahon MD Address [address] [place] [phone] Care Team Providers Care Custodial Foreman Name Role Phone Paolo Mcmahon Primary Care Provider Results Component Value Reference Range Notes Complete Blood Count Auto Di ff Reviewed date:07/25/2024 12:42:32 PM Interpretation: Performing Lab:[facility], [address] [place] [phone] Notes/Report: White Blood Count 7.8 4.8-10.8 X10*3/uL [...] NRBC Abs Auto 0.000 0.0-0.012 X10*3/uL Comprehensive [place]. Panel Fa st Reviewed date:07/25/2024 05:08:37 PM Interpretation: Performing Lab:[facility], [address] [place] [address], [place] [phone] Notes/Report: Sodium 139 135-145 mmol/L Potassium 3.6 [...] Panel Reviewed date:07/25/2024 01:24:48 PM Interpretation: Performing Lab:[facility], [address] [place] [phone] Notes/Report: Triglycerides 103 <150 mg/dL Desirable Triglyceride: [...] Total Reviewed date:07/25/2024 01:24:15 PM Interpretation: Performing Lab:[facility], [address] [place] [phone] Notes/Report: Vitamin D 25-OH Total 54.0 >30 [...] t Reviewed date:07/25/2024 05:10:32 PM Interpretation: Performing Lab:[facility], [address] [place] [phone] Notes/Report: Urine, Clean Catch Color Urine Yellow Appearance Urine Clear PH 5.5 5.0-9.0 Glucose Urine UA Negative Negative mg/dL Urine Blood Moderate (2+) Negative Specific [place] - Urine 1.025 1.005-1.025 Urine Protein Negative [...] Location Date Provider Diagnosis Paolo Mcmahon MD [address] [place] [address] [place] [phone] 07/25/2024 Paolo Mcmahon Blood tests for rout [...] Of Treatment Next Appt Details Provider Name:Paolo holland, 01/29/2025 03:00:00 PM, [address] [place] [address], [address], [place], [place], [phone], Provider Name:Paolo holland, 07/17/2025 07:15:00 AM, [address] [place] [address], [address], [place], [place], [phone], Provider Name:Paolo holland, 07/26/2025 02:30:00 PM, [address] [place] [address], [address], [place], [place], [phone], Progress Notes * Lucy ARAUJO PDOB: [birth year] (64 yo F)Acc No.[id number]:07/25/2024 Progress Note Patient:?HUDSONSHANTE Lucy Salcedo Provider:?Paolo Mcmahon MD :[id number]???Age:64 Y???Sex:Female D ate:07/25/2024 Address:[address] [place] [id number] Subjective: * Chief Complaints: * ???1. Yearly fasting labs. * Medical History:? * Medications:?Taking Triamcin olone Acetonide 0.5 % Cream 1 application to [...] needed Inhalation every 4 hrs Objective: * Vitals:? Assessment: * Assessment: 1.?Blood tests for routine g eneral physical examination - Z00.00 (Primary)???2.?Essential hypertension - I10???3.?Vitamin D deficiency - E55.9???4.?Pure hypercholesterolemia - E78.00??? Plan: * Treatment: 2.?Essential hypertension?LAB: Complete Blood Count Auto Diff (Collection Date & Time - 07/25/2024 07:45 AM) ?LAB: Comprehensive [place]. Panel Fast (Collection Date & Time - 07/25/2024 07:45 AM) ?LAB: Lipid Panel (Collection Date & Time - 07/25/2024 07:45 AM) ?LAB: Vitamin D 25-OH Total (Collection Date & Time - 07/25/2024 07:45 AM) ?LAB: UA ClnCatch+Micro w/rflx Cult (Collection Date & Time - 07/25/2024 07:45 AM) 3.?Vitamin D deficiency?LAB: Complete Blood Count Auto Diff (Collection Date & Time - 07/25/2024 07:45 AM) ?LAB: [facility] [place]. Panel Fast (Collection Date & Time - 07/25/2024 07:45 AM) ?LAB: Lipid Panel (Collection Date & Time - 07/25/2024 07:45 AM) ?LAB: Vitamin D 25-OH Total (Collection Date & Time - 07/25/2024 07:45 AM) ?LAB: UA ClnCatch+Micro w/rflx Cult (Collection Date & Time - 07/25/2024 07:45 AM) 4.?Pure hypercholesterolemia ?LAB: Complete Blood Count Auto Diff (Collection Date & Time - 07/25/2024 07:45 AM) ?LAB: Comprehensive [place]. Panel Fast (Collection Date & Time - 07/25/2024 07:45 AM) ?LAB: Lipid Panel (Collection Date & Time - 07/25/2024 07:45 AM) ?LAB: Vitamin D 25-OH Total (Collection Date & Time - 07/25/2024 07:45 AM) ?LAB: UA ClnCatch+Micro w/rflx Cult (Collection Date & Time - 07/25/2024 07:45 AM) * Procedure Codes:?48034 VENIP UNCT, ROUTINE* * * The named appointment provid er may or may not be the originator of this progress note, and it is not deemed complete until electronically signed by the appointment provider. Sign off status: Pending * Provider:?Paolo Mcmahon MD Date:?1 09/25/2023 Generated for Tali childs/Juyd/Randyitting on:?09/29/2024 07:30 AM EST
--- NOTE | 2024-09-29 07:39 | A.OFFVIS_ITS ---
Vital Signs 09/29/24 07:40 Height 5 ft 4 in Weight 180 lb 5.41 oz BMI 31.0 BP 138/80 Blood Pressure Location Lt brachial Position Sitting Pulse 52 Pulse Source Pulse Oximeter Intake Visit Reasons: Thyroid Nodule Intake Note: Patient present today for thyroid nodule. Hazard Mitigation Officer Required: No Accompanied by: Self / Same As Patient Allergies No Known Allergies [No Known Allergies*] Allergy (Verified 09/29/24 07:43) Medication List - Last Reconciled 09/29/24 by May Bolivar MD albuterol sulfate 90 mcg/actuation 2 puffs inhalation Q4H PRN fluticasone propionate 50 mcg/actuation 1 spray intranasal DAILY valsartan-hydrochlorothiazide 160-12.5 mg 1 tab PO DAILY HPI Comments Details: 64-year-old female here today for initial evaluation of a multinodular goiter. She had a carotid Doppler in July 2024 which incidentally showed multiple thyroid nodules. Subsequently underwent thyroid ultrasound 09/11/2024 which showed multiple thyroid nodules, I reviewed the images myself which showed a 1.3 cm solid hypoechoic TR 4 category nodule in the right upper pole, another 1.2 cm solid, hypoechoic nodule, with punctate echogenic foci TR 5 category in the right mid/upper pole, and inferior 2.9 cm solid, hypoechoic TR 4 category nodule. A subcentimeter isthmus nodule also noted. The left lobe is much smaller compared to the right. Patient currently denies heat or cold intolerance, diarrhea or constipation, palpitation, anxiety, weight changes, mood changes, low energy, changes in appearance of eyes or vision changes, tremors, increased diaphoresis or dry skin. ? Post menopausal. Does have some hair loss. Patient denies any pain on swallowing or voice changes or difficulty breathing. She does feel a lump in her neck for a couple of months. Does have some difficulty swallowing pills. Patient denies any history of childhood neck radiation. Denies having ever used lithium, amiodarone or biotin supplements. Patient denies any family history of thyroid cancer. Mother had thyroid surgery but she doesnt know the exact diagnosis. Social history Alcohol 3-4 glasses of wine a week No smoking, no drug use Works in accounts Physical exam General: sitting comfortably in no acute distress HEENT: normocephalic/atraumatic, moist oral mucosa Neck: supple, palpable 2 cm right-sided thyroid nodule Cardiac: normal heart sounds Pulm: normal breath sounds B/L, no added breath sounds Abd: not distended, no tenderness Extremities: no edema, no signs of myxedema EXAMINATION: US THYROID 09/11/2024 HISTORY: THYROID NODULE TECHNIQUE: Real-time grayscale ultrasound imaging was performed and images were reviewed. COMPARISON: There are no prior studies for comparison. FINDINGS: SIZE: The right thyroid lobe measures 6.7 x 2.0 x 2.2 cm. The left thyroid lobe measures 4.7 x 1.3 x 1.4 cm. The isthmus measures 4 mm. FLOW: Flow to the gland is normal. ECHOGENICITY: The echotexture of the gland is heterogeneous on the right. NODULES: Multiple nodules are noted as described below: Nodule #: 1 Location: Right upper pole measuring 1.3 x 0.8 x 0.9 cm Shape: Round Margins: Smooth Echotexture: Hypoechoic Morphology: Solid Calcifications: None TIRADS: TR4: Moderately suspicious. Nodule #: 2 Location: Right mid to upper pole measuring 1.2 x 1.3 x 0.9 cm Shape: Ovoid Margins: Smooth Echotexture: Hypoechoic Morphology: Solid Calcifications: Possible punctate calcifications. TIRADS: TR5: Highly suspicious. Nodule #: 3 Location: Right lower pole measuring 2.8 x 2.8 x 2.9 cm Shape: Round Margins: Smooth Echotexture: Hypoechoic Morphology: Solid Calcifications: None TIRADS: TR4: Moderately suspicious. Nodule #: 4 Location: Right isthmus measuring 6 x 6 x 3 mm Shape: Ovoid Margins: Smooth Echotexture: Very hypoechoic Morphology: Solid Calcifications: The TIRADS: TR5: Highly suspicious. US/US thyroid IMPRESSION: Multiple suspicious thyroid nodules are identified on the right. Ultrasound-guided fine-needle aspiration of the 1.2 x 1.3 x 0.9 cm nodule in the right mid to upper pole and the 2.8 x 2.8 x 2.9 cm nodule at the right lower pole are recommended. The other nodules may be followed. [facility] Medical History (Updated 09/29/24 @ 07:50 by May Bolivar MD) Multinodular goiter Tendonitis of wrist, left History of COVID-19 Hypertension Asthma Surgical History (Updated 02/01/24 @ 11:18 by Tk Booth MD) Hx of surgical procedure (01/25/24) History of breast lump/mass excision Hx of dilation and curettage H/O colonoscopy S/P arthroscopic surgery of left knee Social History Comment: counts correct Patient Tobacco Use Status: Never used Tobacco Current occupational status: employed Current occupation: Desk work - right handed Physical Exam Vital Signs: Last Vital Signs Pulse 52 09/29/24 07:40 BP 138/80 09/29/24 07:40 BMI result Body Mass Index 31.0 Assessment & Plan Assessment & Plan (1) Multinodular goiter: Code(s): E04.2 - Nontoxic multinodular goiter Category: Medical Plan: 64-year-old female with no family history of thyroid cancer, with no past medical history of head or neck radiation who is coming in today for initial evaluation of multinodular goiter. thyroid ultrasound 09/11/2024 which showed multiple thyroid nodules, I reviewed the images myself which showed a 1.3 cm solid hypoechoic TR 4 category nodule in the right upper pole, another 1.2 cm solid, hypoechoic nodule, with punctate echogenic foci TR 5 category in the right mid/upper pole, and inferior 2.9 cm solid, hypoechoic TR 4 category nodule. A subcentimeter isthmus nodule also noted. The left lobe is much smaller compared to the right. At this time we will plan to do FNA of the right mid/upper 1.2 cm TR 5 thyroid nodule and the right inferior 2.9 cm TR 4 category nodule. I explained that it is common to have thyroid nodules. About 95% of the time these nodules are benign. However if the nodule is > 1 cm in size or suspicious on ultrasound then a fine need aspiration biopsy is recommended. We discussed that a FNAB involves 4-5 passes with a small gauge needle and material obtained is sent off for cytology.If the cytopathology is benign then the nodule will be followed annually with repeat ultrasounds. However if it is suspicious or malignant, we will need to discuss further management. Indeterminate cytology can be further investigated with repeat FNA, genetic testing or empiric lobectomy. Malignant cytology is managed with either lobectomy or total thyroidectomy. We discussed briefly that thyroid cancer is, in most patients, an indolent disease that does not affect mortality. We will arrange for FNA of the right mid/upper 1.2 cm TR 5 thyroid nodule and the right inferior 2.9 cm TR 4 category nodule. at next available opening and patient will follow up with me in clinic thereafter for results and further decision making. Plan: -scheduled for FNA of the right mid/upper 1.2 cm TR 5 thyroid nodule and the right inferior 2.9 cm TR 4 category nodule and a follow up 2 weeks after to discuss results -do TSH with reflex free T4 Plan I spent 45 minutes in reviewing the record, seeing the patient and documenting in the medical record. Orders: Orders Thyroid Stimulating Hormone Today E04.2 - Nontoxic multinodular goiter US biopsy thyroid Today E04.2 - Nontoxic multinodular goiter Free T4 (Free Thyroxine) Today E04.2 - Nontoxic multinodular goiter Patient Instructions: Do blood work today We will book you for biopsies of 2 of her thyroid nodules on the right side and a follow up 2 weeks after to discuss results Coding Level of Care Code New Pt Level 4 (10664) Diagnoses Multinodular goiter E04.2 Time Spent (min) 45
== END | disposition home or self-care (01) ==
PROVIDERS: PCP Internal Medicine; Visit Provider Student in an Organized Health Care Education/Training Program
CPT/HCPCS: 99204

== ENCOUNTER 2024-10-04 07:27 | Outpatient (REF) | payer OTHER, SELFPAY ==
--- OUTSIDE RECORDS SUMMARY | 2024-10-04 07:28 | XMS_ITS ---
Author Organization Paolo Mcmahon MD Address [address] [place] [phone] Support Name Relationship Address Phone Paolo Mcmahon Caregiver [address] [facility] [address] [place] [address] [phone] Nicolas Snyder [facility]giver [facility] [address] [place] [address] [phone] Akosua Cazares Caregiver [address] [facility] [address] [place] [address] [phone] Rashi Luna Caregiver [address] [facility] [address] [place] [address] [phone] Sejal Graff Caregiver [address] [facility] [address] [address] [place] [address] [phone] NEGRITA Kimble Caregiver 10 [facility] [address] [place] [address] [phone] Ramana Vieira Caregiver [address] [facility] [address] [place] [address] [phone] Larisa Redd Caregiver [address] [facility] [facility] [address] [place] [address] [phone] Unavailable Emergency Contact Unknown [phone] Lucy Araujo Guarantor Unknown [phone] Care Team Providers Care Service Technician Copier Name Role Phone Paolo Mcmahon Primary Care [...] Location Date Provider Diagnosis Paolo Mcmahon MD [address] [place] [address] [address] [place], [place] [phone] 07/24/2024 Paolo Mcmahon Essential hypertensi on I10 [...] Name:Paolo Burt ier, 01/29/2025 03:00:00 PM, [address] [facility], [address], [place], [phone], Provider Name:Paolo Salcedo Balbirchantal ier, 07/17/2025 07:15:00 AM, [address] [facility], [address], [place], [phone], Provider Name:Paolo Denisse Balbirchantal ier, 07/26/2025 02:30:00 PM, [facility], Suite [facility], [place], [place], [phone], Progress Notes * Lucy ARAUJO PDOB: [birth year] (64 yo F)Acc No.[id number]:07/24/2024 Progress Notes Patient:?Lucy Araujo Provider:?Paolo Mcmahon MD :1960???Age:64 Y???Sex:Female D ate:07/24/2024 Address:[address] [place] [id number] Subjective: * Chief Complaints: * ???Annual visitPatient [...] normal, no murmurs.?LUNGS:?clear to auscultation bilaterally.?BREASTS:?done by library technology instructor.?ABDOMEN:?soft, nontender, nondistended, bowel sounds present, normal, no organomegaly , no masses palpable.?RECTAL EXAM:?done by library technology instructor.?FEMALE GENITOURINARY:?done by library technology instructor.?EXTREMITIES:?no clubbing, cyanosis, or edema.?NEUROLOGIC:?nonfocal, motor strength normal [...] MD Date:?1 09/24/2023 Generated for Tali childs/Judy/Wilfred on:?10/04/2024 07:28 AM EST History and Physical Notes * [...] cyanosi s, or edema BREASTS: done by library technology instructor RECTAL EXAM: done by library technology instructor FEMALE GENITOURINARY: done by library technology instructor ORAL CAVITY: mucosa moist
--- OUTSIDE RECORDS SUMMARY | 2024-10-04 07:29 | XMS_ITS ---
Author Organization Paolo Mcmahon MD Address [address] [place] [address] [phone] Support Name Relationship Address Phone Paolo Mcmahon Caregiver 10 [facility] [address] [facility] [address] [place] [phone] Nicolas Snyder [facility]giver [facility] [address] [place] [address] [phone] Akosua Cazares Caregiver 10 [facility] [address] [address] [place] [address] [phone] Rashi Luna Caregiver 10 [facility] [address] [address] [place] [address] [phone] Sejal Graff Caregiver 10 [facility] [address] [address] [place] [address] [phone] NEGRITA Kimble [facility]giver [facility] [address] [place] [address] [phone] Ramana Vieira Caregiver 10 [facility] [address] [address] [place] [address] [phone] Larisa Redd Caregiver 10 [facility] [address] [place] [address] [phone] Unavailable Emergency Contact Unknown Lucy Araujo Guarantor Unknown [phone] Care Team Providers Care Branch Banker Name Role Phone Paolo Mcmahon Primary Care Provider [phone] Results Component Value Reference Range Notes Complete Blood Count Auto Di ff Reviewed date:07/25/2024 12:42:32 PM Interpretation: Performing Lab:[facility], [address] [place] [phone] Notes/Report: White Blood Count 7.8 4.8-10.8 X10*3/uL [...] NRBC Abs Auto 0.000 0.0-0.012 X10*3/uL Comprehensive [place]. Panel Fa st Reviewed date:07/25/2024 05:08:37 PM Interpretation: Performing Lab:[facility], [address] [place] [address], [place] [phone] Notes/Report: Sodium 139 135-145 mmol/L Potassium 3.6 [...] Panel Reviewed date:07/25/2024 01:24:48 PM Interpretation: Performing Lab:[facility], [address] [place] [phone] Notes/Report: Triglycerides 103 <150 mg/dL Desirable Triglyceride: [...] Total Reviewed date:07/25/2024 01:24:15 PM Interpretation: Performing Lab:[facility], [address] [place] [phone] Notes/Report: Vitamin D 25-OH Total 54.0 >30 [...] t Reviewed date:07/25/2024 05:10:32 PM Interpretation: Performing Lab:[facility], [address] [place] [phone] Notes/Report: Urine, Clean Catch Color Urine Yellow Appearance Urine Clear PH 5.5 5.0-9.0 Glucose Urine UA Negative Negative mg/dL Urine Blood Moderate (2+) Negative Specific [place] - Urine 1.025 1.005-1.025 Urine Protein Negative [...] Location Date Provider Diagnosis Paolo Mcmahon MD [address] [place] [address] [place] [phone] 07/25/2024 Paolo Mcmahon Blood tests for rout [...] Details Provider Name:Paolo holland, 01/29/2025 03:00:00 PM, [address] [place] [address], Suite [facility], [place], [place], [phone], Provider Name:Paolo holland, 07/17/2025 07:15:00 AM, [address] [place] [address], Suite [facility], [place], [place], [phone], Provider Name:Paolo holland, 07/26/2025 02:30:00 PM, [address] [place] [address], Suite [facility], [place], [place], [phone], Progress Notes * Lucy ARAUJO PDOB: [birth year] (64 yo F)Acc No.[id number]:07/25/2024 Progress Note Patient:?HUDSONSHANTE Lucy Salcedo Provider:?Paolo Mcmahon MD :1960???Age:64 Y???Sex:Female D ate:07/25/2024 Address:[address] [place] [phone] Subjective: * Chief Complaints: * ???1. Yearly [...] Time - 07/25/2024 07:45 AM) ?LAB: Comprehensive [place]. Panel Fast (Collection Date & Time - [...] Time - 07/25/2024 07:45 AM) ?LAB: Comprehensive [place]. Panel Fast (Collection Date & Time - [...] Time - 07/25/2024 07:45 AM) ?LAB: Comprehensive [place]. Panel Fast (Collection Date & Time - 07/25/2024 07:45 AM) ?LAB: Lipid Panel (Collection Date & Time - 07/25/2024 07:45 AM) ?LAB: Vitamin D 25-OH Total (Collection Date & Time - 07/25/2024 07:45 AM) ?LAB: UA ClnCatch+Micro w/rflx Cult (Collection Date & Time - 07/25/2024 07:45 AM) * Procedure Codes:?84359 VENIP UNCT, ROUTINE* * * The named appointment provid er may or may not be the originator of this progress note, and it is not deemed complete until electronically signed by the appointment provider. Sign off status: Pending * Provider:?Paolo Mcmahon MD Date:?1 09/25/2023 Generated for Tali childs/Judy/Randyitting on:?10/04/2024 07:29 AM EST
--- OUTSIDE RECORDS SUMMARY | 2024-10-04 07:29 | XMS_ITS | Patient Health Record ---
Author Organization [facility] Address [address] [place] [address] Care Team Providers Care Demolition Specialist Name Role Phone Paolo Mcmahon MD Primary Care Provider Rashi Greer [phone] ALLERGIES No Known Allergies REASON FOR REFERRAL [...] confirmed Screening for malignant neoplasm of colon (729752458) Problem Encounter for other preprocedural examination (Z01.818) Active confirmed Pre-procedure evaluation check (832392305) Problem Diverticulosis of colon (K57.30) Active confirmed Diverticulosi s of colon (660285074) PLAN OF TREATMENT Future Test Test Name Order Date COLONOSCOPY 01/06/2012 COLONOSCOPY 03/11/2022 Insurance Providers Payer Name Payer Address Payer Phone Subscriber Number Group Number Insured Name Patient Relationship to Insured Coverage Start Date Coverage End Date [facility] [address] [facility] [place], [place] [phone] [id number] АННА ARAUJO Self - patient is the insured MEDICAL (GENERAL) HISTORY Medical History History ICD Code Asthma Denies [place],DM,CVA,renal disease HTN Negative colonoscopy in 01/2012 Surgical History Surgery Date(Month/Year) Breast cyst removed 1996 D & C 2021 Left knee surgery
--- OUTSIDE RECORDS SUMMARY | 2024-10-04 07:29 | XMS_ITS | Clinical Summary ---
Author Organization [facility] Address [address] [place] [address] Care Team Providers Care Roll Hand Name Role Phone Paolo Mcmahon MD Primary Care Provider [phone]- [phone] Allergies No known active allergies Social History [...] age to complete this topic Care Teams Roll Hand Relationship Specialty Start Date End Date Paolo Mcmahon MD [address] [place] [address] Dr Elizabeth [address] [place] [address] [place] [address] PCP - General Internal Medicine 06/13/24
--- OUTSIDE RECORDS SUMMARY | 2024-10-04 07:29 | XMS_ITS ---
Author Organization Paolo Mcmahon MD Address [address] [place] [phone] Care Team Providers Care Requirements Analyst Name Role Phone Paolo Mcmahon Primary Care Provider [phone] Allergies No Known Allergies REASON FOR VISIT review US had Covid last week video [phone] Medications Medication SIG (Take, Route, Frequency, Duration) [...] Problem Status W/U Status Risk Notes Problem [id number] Thyroid nodule (E04.1) Active confirmed Problem 970443409 Bilateral carotid artery disease, 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) Active confirmed Vital Signs Height 65 in 08/28/2024 Weight 178 lbs 08/28/2024 BMI 29.62 kg/m2 08/28/2024 weight at home 178 BP not ta melissa today no temp Encounters Encounter Location Date Provider Diagnosis Paolo Mcmahon MD [address] [facility] [address] [place], [place] [phone] 08/28/2024 Paolo Mcmahon Thyroid nodule E04.1 and [...] Provider Name:Paolo Burt ier, 01/29/2025 03:00:00 PM, [address] [place] [address], [place] [address], [place], [place], [phone], Provider Name:Paolo Burt ier, 07/17/2025 07:15:00 AM, [address] [place] [address], [place] [address], [place], [place], [phone], Provider Name:Paolo Burt ier, 07/26/2025 02:30:00 PM, [address] [place] [address], [place] [address], [place], [place], [phone], Progress Notes * Lucy ARAUJO PDOB: [birth year] (64 yo F)Acc No.[id number]:08/28/2024 Patient:?Tere Lucy P Provider:?Paolo Mcmahon MD :1960???Age:64 Y???Sex:Female D ate:08/28/2024 Address:[address] [place], [place] [phone] Subjective: * Chief Complaints: * ???review US had Covid last week video [phone] * HPI: ???Symptom(s):?Telehealth?Location of provider rendering services:?[address] [place] [address], [place] [address],?Location of patient:?other (please specify) Patient is at work in [place],?Patient identification confirmed using:?Name, ,?Telehealth method:?Video conference where [...] of 2 years with repeat?? * Procedure Codes:?15071 SYNCH AUDIO-VIDEO EST LOW 20 * * Sign off status: Completed true * Provider:?Paolo Mcmahon MD Date:?0 08/28/2024 Generated for Tali childs/Judy/eTransmitting on:?10/04/2024 07:28 AM EST History and Physical Notes * HPI (History of Present Illness) Category Sub-Category Detail Notes Category Not es Symptom(s) Telehealth Location of [facility] ider rendering services:: [address], [address] patient is a 64 yo female here for follow up. has covid. didn't get it in chest. just stuffy nose Location of patient:: other (please spec shabbir) Patient is at work in [employer] Patient identification confirmed using:: Name, Telehealth method:: [...]
--- NOTE | 2024-10-04 08:47 | PCN2_ITS ---
Brief Operative Note Date of procedure: 10/04/24 Pre-op diagnosis: right superior/mid 1.3 cm and right inf 2.9 cm thyroid nodule FNA biopsy Post-op diagnosis: same Procedure: THYROID FINE NEEDLE ASPIRATION PROCEDURE NOTE ? PROCEDURE PERFORMED: Ultrasound-guided FNA of thyroid nodule ? OPERATORS: Dr. May Bolivar ? INDICATION: right superior/mid 1.3 cm and right inferior 2.9 cm thyroid nodules ; FNA performed to assess for malignancy ? DESCRIPTION OF PROCEDURE: The indications for FNA (to assess for malignancy) were reviewed with the patient in detail. Potential complications (e.g., bleeding, infection, damage to local structures, absence of clear diagnosis af ter FNA) were reviewed. Alternatives to FNA including conservative observation or surgery were described. The patient understood and agreed to proceed. This was documented by the signing of the written informed consent form. A time-out was performed to confirm the patient's identity and the site of planned FNA. The nodules of interest was identified using ultrasound (14 MHz linear array probe). The sites of FNA was then draped in the usual fashion and carefully cleaned and prepared using alcohol swabs. The skin at the previously-identified site of needle insertion was iced and sprayed with numbing spray. For the right superior / mid 1.3 cm :Under ultrasound guidance, _4_ passes were performed using a 1.5-inch, 25-gauge needle, and sample was obtained via capillary action. The needle tip was clearly visualized to be within the nodule at the time of sampling for 4__ of 4__ passes. For the right inferior 2.9 cm thyroid nodule : Under ultrasound guidance, _5_ passes were performed using a 1.5-inch, 25-gauge needle, and sample was obtained via capillary action. The needle tip was clearly visualized to be within the nodule at the time of sampling for 5__ of 5__ passes. The patient tolerated the procedure well. There were no immediate complications. A small adhesive bandage was applied, and the patient was advised to take acetaminophen (rather than NSAIDs) for any discomfort and to report any signs of inflammation/infection or marked swelling. IMPRESSION: Technically successful ultrasound-guided fine needle aspiration of right superior/mid 1.3 cm and right inferior 2.9 cm thyroid nodules. PLAN: The patient was advised that I will provide follow-up regarding the cytology result and any subsequent plans. May Bolivar MD Endocrinology Attending Condition: stable Disposition: same day
== END 2024-10-04 07:28 | disposition home or self-care (01) ==
LOC: HO.US 07:27
PROVIDERS: PCP Internal Medicine; Visit Provider Student in an Organized Health Care Education/Training Program
DX: E04.2 Nontoxic multinodular goiter (principal)
CPT/HCPCS: 10005; 10006; 88173; 88305

== ENCOUNTER → 2024-10-04 07:27 | Outpatient (BNV) | payer OTHER, SELFPAY | PROVIDERS: PCP Internal Medicine; Visit Provider Student in an Organized Health Care Education/Training Program | DX: E04.2 Nontoxic multinodular goiter (principal) | CPT/HCPCS: 10005; 10006 ==

== ENCOUNTER 2024-10-19 12:24 | Outpatient (AMB) | payer OTHER, SELFPAY ==
--- NOTE | 2024-10-19 12:35 | MHC.OFFVIS ---
Vital Signs 10/19/24 12:37 Height 5 ft 4 in Weight 180 lb 1.883 oz BMI 30.9 BP 154/88 H Blood Pressure Location Lt brachial Position Sitting Pulse 70 Pulse Source Pulse Oximeter Pulse Oximetry (%) 95 Oxygen Delivery Method Room Air Intake Visit Reasons: Biopsy f/u Intake Note: Patient present today for biopsy results. Boiler Tester Required: No Accompanied by: Spouse Allergies No Known Allergies [No Known Allergies*] Allergy (Verified 09/29/24 07:43) HPI Comments Details: 64-year-old female here today for follow up of a multinodular goiter. HPI She had a carotid Doppler in July 2024 which incidentally showed multiple thyroid nodules. Subsequently underwent thyroid ultrasound 09/11/2024 which showed multiple thyroid nodules, I reviewed the images myself which showed a 1.3 cm solid hypoechoic TR 4 category nodule in the right upper pole, another 1.2 cm solid, hypoechoic nodule, with punctate echogenic foci TR 5 category in the right mid/upper pole, and inferior 2.9 cm solid, hypoechoic TR 4 category nodule. A subcentimeter isthmus nodule also noted. The left lobe is much smaller compared to the right. Patient currently denies heat or cold intolerance, diarrhea or constipation, palpitation, anxiety, weight changes, mood changes, low energy, changes in appearance of eyes or vision changes, tremors, increased diaphoresis or dry skin. ? Post menopausal. Does have some hair loss. Patient denies any pain on swallowing or voice changes or difficulty breathing. She does feel a lump in her neck for a couple of months. Does have some difficulty swallowing pills. Patient denies any history of childhood neck radiation. Denies having ever used lithium, amiodarone or biotin supplements. Patient denies any family history of thyroid cancer. Mother had thyroid surgery but she doesnt know the exact diagnosis. Social history Alcohol 3-4 glasses of wine a week No smoking, no drug use Works in accounts Interval history 10/04/2024: Underwent FNA of the right superior/mid 1.3 cm nodule which came back as benign [place] category 2. Also underwent FNA of the right inferior 2.9 cm nodule which came back as AUS, [place] category 3, with a Afirma being benign, 4% risk of malignancy. Physical exam General: sitting comfortably in no acute distress HEENT: normocephalic/atraumatic, moist oral mucosa Neck: supple, palpable 2 cm right-sided thyroid nodule Cardiac: normal heart sounds Pulm: normal breath sounds B/L, no added breath sounds Abd: not distended, no tenderness Extremities: no edema, no signs of myxedema Laboratory Tests 09/29/24 08:32 TSH 0.61 Free T4 1.06 EXAMINATION: US THYROID 09/11/2024 HISTORY: THYROID NODULE TECHNIQUE: Real-time grayscale ultrasound imaging was performed and images were reviewed. COMPARISON: There are no prior studies for comparison. FINDINGS: SIZE: The right thyroid lobe measures 6.7 x 2.0 x 2.2 cm. The left thyroid lobe measures 4.7 x 1.3 x 1.4 cm. The isthmus measures 4 mm. FLOW: Flow to the gland is normal. ECHOGENICITY: The echotexture of the gland is heterogeneous on the right. NODULES: Multiple nodules are noted as described below: Nodule #: 1 Location: Right upper pole measuring 1.3 x 0.8 x 0.9 cm Shape: Round Margins: Smooth Echotexture: Hypoechoic Morphology: Solid Calcifications: None TIRADS: TR4: Moderately suspicious. Nodule #: 2 Location: Right mid to upper pole measuring 1.2 x 1.3 x 0.9 cm Shape: Ovoid Margins: Smooth Echotexture: Hypoechoic Morphology: Solid Calcifications: Possible punctate calcifications. TIRADS: TR5: Highly suspicious. Nodule #: 3 Location: Right lower pole measuring 2.8 x 2.8 x 2.9 cm Shape: Round Margins: Smooth Echotexture: Hypoechoic Morphology: Solid Calcifications: None TIRADS: TR4: Moderately suspicious. Nodule #: 4 Location: Right isthmus measuring 6 x 6 x 3 mm Shape: Ovoid Margins: Smooth Echotexture: Very hypoechoic Morphology: Solid Calcifications: The TIRADS: TR5: Highly suspicious. US/US thyroid IMPRESSION: Multiple suspicious thyroid nodules are identified on the right. Ultrasound-guided fine-needle aspiration of the 1.2 x 1.3 x 0.9 cm nodule in the right mid to upper pole and the 2.8 x 2.8 x 2.9 cm nodule at the right lower pole are recommended. The other nodules may be followed. [facility] Medical History (Updated 09/29/24 @ 07:50 by May Bolivar MD) Multinodular goiter Tendonitis of wrist, left History of COVID-19 Hypertension Asthma Surgical History Hx of surgical procedure (01/25/24) History of breast lump/mass excision Hx of dilation and curettage H/O colonoscopy S/P arthroscopic surgery of left knee Social History Comment: counts correct Patient Tobacco Use Status: Never used Tobacco Current occupational status: employed Current occupation: Desk work - right handed Physical Exam Vital Signs: Last Vital Signs Pulse 70 10/19/24 12:37 BP 154/88 H 10/19/24 12:37 Pulse Ox 95 10/19/24 12:37 Oxygen Delivery Method Room Air 10/19/24 12:37 BMI result Body Mass Index 30.9 Assessment & Plan Assessment & Plan (1) Multinodular goiter: Code(s): E04.2 - Nontoxic multinodular goiter Category: Medical Plan: 64-year-old female with no family history of thyroid cancer, with no past medical history of head or neck radiation who is coming in today for initial evaluation of multinodular goiter. thyroid ultrasound 09/11/2024 which showed multiple thyroid nodules, I reviewed the images myself which showed a 1.3 cm solid hypoechoic TR 4 category nodule in the right upper pole, another 1.2 cm solid, hypoechoic nodule, with punctate echogenic foci TR 5 category in the right mid/upper pole, and inferior 2.9 cm solid, hypoechoic TR 4 category nodule. A subcentimeter isthmus nodule also noted. The left lobe is much smaller compared to the right. At this time we will plan to do FNA of the right mid/upper 1.2 cm TR 5 thyroid nodule and the right inferior 2.9 cm TR 4 category nodule. 10/04/2024: Underwent FNA of the right superior/mid 1.3 cm nodule which came back as benign [place] category 2. Also underwent FNA of the right inferior 2.9 cm nodule which came back as AUS, [place] category 3, with a Afirma being benign, 4% risk of malignancy. She is bothered somewhat by her feeling of fullness in the anterior neck, feeling of a lump. We discussed that if she is really bothered by it, we can send her for surgical evaluation to see if this is caused by her thyroid nodules and consider lobectomy/total thyroidectomy. I explained to her risks of thyroid hormone replacement after, damage to laryngeal nerves, damage to parathyroid glands. I also told her if she starts having swallowing difficulties, can consider a barium swallow evaluation to see if there is any other reason for it. At this time she would like to monitor this clinically. Plan: -ultrasound of the thyroid in August 2025 -TSH with reflex free T4 in August 2025 -follow up in September 2025 Plan See above Orders: Orders US thyroid 08/27/25 E04.2 - Nontoxic multinodular goiter TSH reflex Free T4 08/27/25 E04.2 - Nontoxic multinodular goiter Patient Instructions: Do ultrasound of her thyroid in August 2025 Do labs in August 2025 Follow up in September 2025 Coding Level of Care Code Est Pt Level 3 (96442) Diagnoses Multinodular goiter E04.2
[2024-10-19 12:37] VITALS: BP 154/88; PULSE 70; O2SAT 95; BMI 30.9
--- OUTSIDE RECORDS SUMMARY | 2024-10-19 14:48 | XMS_ITS | Patient Health Record ---
Author Organization [facility] Address [address] [place] [address] Care Team Providers Care Drop Hammer Operator Helper Name Role Phone Paolo Mcmahon MD Primary Care Provider Rashi Greer [phone] ALLERGIES No Known Allergies REASON FOR REFERRAL [...] confirmed Screening for malignant neoplasm of colon (737330973) Problem Encounter for other preprocedural examination (Z01.818) Active confirmed Pre-procedure evaluation check (978719688) Problem Diverticulosis of colon (K57.30) Active confirmed Diverticulosi s of colon (268813741) PLAN OF TREATMENT Future Test Test Name Order Date COLONOSCOPY 01/06/2012 COLONOSCOPY 03/11/2022 Insurance Providers Payer Name Payer Address Payer Phone Subscriber Number Group Number Insured Name Patient Relationship to Insured Coverage Start Date Coverage End Date [facility] [address] [facility] [place], [place] [phone] [id number] АННА ARAUJO Self - patient is the insured MEDICAL (GENERAL) HISTORY Medical History History ICD Code Asthma Denies MT,DM,CVA,renal disease HTN Negative colonoscopy in 01/2012 Surgical History Surgery Date(Month/Year) Breast cyst removed 1996 D & C 2021 Left knee surgery
--- OUTSIDE RECORDS SUMMARY | 2024-10-19 14:48 | XMS_ITS ---
Author Organization Paolo Mcmahon MD Address [address] [place] [phone] Care Team Providers Care Asset Protection Officer Name Role Phone Paolo Mcmahon Primary Care [...] Location Date Provider Diagnosis Paolo Mcmahon MD [address] [place] [address] [address] [place], [place] [phone] 07/24/2024 Paolo Mcmahon Essential hypertensi on I10 [...] Name:Paolo Burt ier, 01/29/2025 03:00:00 PM, [address] [facility], [address], [place], [phone], Provider Name:Paolo Salcedo Balbirchantal ier, 07/17/2025 07:15:00 AM, [address] [facility], [address], [place], [phone], Provider Name:Paolo Denisse Balbirchantal ier, 07/26/2025 02:30:00 PM, [address] [facility], Suite [facility], [place], [place], [phone], Progress Notes * Lucy ARAUJO PDOB: [birth year] (64 yo F)Acc No.[id number]:07/24/2024 Progress Notes Patient:?Lucy Araujo Provider:?Paolo Mcmahon MD :1960???Age:64 Y???Sex:Female D ate:07/24/2024 Address:[address] [place] [phone] Subjective: * Chief Complaints: * ???Annual visitPatient [...] normal, no murmurs.?LUNGS:?clear to auscultation bilaterally.?BREASTS:?done by process development engineer.?ABDOMEN:?soft, nontender, nondistended, bowel sounds present, normal, no organomegaly , no masses palpable.?RECTAL EXAM:?done by process development engineer.?FEMALE GENITOURINARY:?done by process development engineer.?EXTREMITIES:?no clubbing, cyanosis, or edema.?NEUROLOGIC:?nonfocal, motor strength normal [...] MD Date:?1 09/24/2023 Generated for Tali childs/Judy/Wilfred on:?10/19/2024 02:47 PM EST History and Physical Notes * [...] cyanosi s, or edema BREASTS: done by process development engineer RECTAL EXAM: done by process development engineer FEMALE GENITOURINARY: done by process development engineer ORAL CAVITY: mucosa moist
--- OUTSIDE RECORDS SUMMARY | 2024-10-19 14:48 | XMS_ITS ---
Author Organization Paolo Mcmahon MD Address [address] [place] [phone] Care Team Providers Care Extrusion Line Operator Name Role Phone Paolo Mcmahon Primary Care Provider Allergies No Known Allergies REASON FOR VISIT review US had Covid last week video [phone] Medications Medication SIG (Take, Route, Frequency, Duration) [...] Problem Status W/U Status Risk Notes Problem 022326083 Thyroid nodule (E04.1) Active confirmed Problem 173838253 Bilateral carotid artery disease, 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) Active confirmed Vital Signs Height 65 in 08/28/2024 Weight 178 lbs 08/28/2024 BMI 29.62 kg/m2 08/28/2024 weight at home 178 BP not ta melissa today no temp Encounters Encounter Location Date Provider Diagnosis Paolo Mcmahon MD [address] [facility] [address] [place], [place] [phone] 08/28/2024 Paolo Mcmahon Thyroid nodule E04.1 and [...] Provider Name:Paolo Burt ier, 01/29/2025 03:00:00 PM, [address] [place] [address], [place] [address], [place], [place], [phone], Provider Name:Paolo Burt ier, 07/17/2025 07:15:00 AM, [address] [place] [address], [place] [address], [place], [place], [phone], Provider Name:Paolo Burt ier, 07/26/2025 02:30:00 PM, [address] [place] [address], [place] [address], [place], [place], [phone], Progress Notes * Lucy ARAUJO PDOB: [birth year] (64 yo F)Acc No.[id number]:08/28/2024 Patient:?Tere Lucy P Provider:?Paolo Mcmahon MD :1960???Age:64 Y???Sex:Female D ate:08/28/2024 Address:[address] [place], [place] [phone] Subjective: * Chief Complaints: * ???review US had Covid last week video [phone] * HPI: ???Symptom(s):?Telehealth?Location of provider rendering services:?[address] [place] [address], [place] [address],?Location of patient:?other (please specify) Patient is at work in [place],?Patient identification confirmed using:?Name, ,?Telehealth method:?Video conference where [...] of 2 years with repeat?? * Procedure Codes:?41251 SYNCH AUDIO-VIDEO EST LOW 20 * * Sign off status: Completed true * Provider:?Paolo Mcmahon MD Date:?0 08/28/2024 Generated for Tali childs/Judy/eTransmitting on:?10/19/2024 02:48 PM EST History and Physical Notes * HPI (History of Present Illness) Category Sub-Category Detail Notes Category Not es Symptom(s) Telehealth Location of [facility] ider rendering services:: [address], [address] patient is a 64 yo female here for follow up. has covid. didn't get it in chest. just stuffy nose Location of patient:: other (please spec shabbir) Patient is at work in [employer] Patient identification confirmed using:: Name, Telehealth method:: [...]
--- OUTSIDE RECORDS SUMMARY | 2024-10-19 14:49 | XMS_ITS | Clinical Summary ---
Author Organization [facility] Address [address] [place] [address] Care Team Providers Care Dental Laboratory Supervisor Name Role Phone Paolo Mcmahon MD Primary Care Provider [phone] Allergies No known active allergies Social History [...] age to complete this topic Care Teams Dental Laboratory Supervisor Relationship Specialty Start Date End Date Paolo Mcmahon MD [address] [place] [address] Dr Elizabeth [address] [place] [address] [place] [address] PCP - General Internal Medicine 06/13/24
--- OUTSIDE RECORDS SUMMARY | 2024-10-19 14:49 | XMS_ITS ---
Author Organization Paolo Mcmahon MD Address [address] [place] [phone] Care Team Providers Care Saxophone Assembler Name Role Phone Paolo Mcmahon Primary Care Provider Results Component Value Reference Range Notes Complete Blood Count Auto Di ff Reviewed date:07/25/2024 12:42:32 PM Interpretation: Performing Lab:[facility], [address] [place] [phone] Notes/Report: White Blood Count 7.8 4.8-10.8 X10*3/uL [...] NRBC Abs Auto 0.000 0.0-0.012 X10*3/uL [facility]. Panel Fa st Reviewed date:07/25/2024 05:08:37 PM Interpretation: Performing Lab:[facility], [address] [place] [address], [place] [phone] Notes/Report: Sodium 139 135-145 mmol/L Potassium 3.6 [...] Panel Reviewed date:07/25/2024 01:24:48 PM Interpretation: Performing Lab:[facility], [address] [place] [phone] Notes/Report: Triglycerides 103 <150 mg/dL Desirable Triglyceride: [...] Total Reviewed date:07/25/2024 01:24:15 PM Interpretation: Performing Lab:[facility], [address] [place] [phone] Notes/Report: Vitamin D 25-OH Total 54.0 >30 [...] t Reviewed date:07/25/2024 05:10:32 PM Interpretation: Performing Lab:[facility], [address] [place] [phone] Notes/Report: Urine, Clean Catch Color Urine Yellow Appearance Urine Clear PH 5.5 5.0-9.0 Glucose Urine UA Negative Negative mg/dL Urine Blood Moderate (2+) Negative Specific Sturgeon - Urine 1.025 1.005-1.025 Urine Protein Negative [...] Location Date Provider Diagnosis Paolo Mcmahon MD [address] [place] [address] [place] [phone] 07/25/2024 Paolo Mcmahon Blood tests for rout [...] Details Provider Name:Paolo holland, 01/29/2025 03:00:00 PM, [address] [place] [address], Suite [facility], [place], [place], [phone], Provider Name:Paolo holland, 07/17/2025 07:15:00 AM, [address] [place] [address], Suite [facility], [place], [place], [phone], Provider Name:Paolo holland, 07/26/2025 02:30:00 PM, [address] [place] [address], Suite [facility], [place], [place], [phone], Progress Notes * Lucy ARAUJO PDOB: [birth year] (64 yo F)Acc No.[id number]:07/25/2024 Progress Note Patient:?HUDSONSHANTE Lucy Salcedo Provider:?Paolo Mcmahon MD :1960???Age:64 Y???Sex:Female D ate:07/25/2024 Address:[address] [place] [phone] Subjective: * Chief Complaints: * ???1. Yearly [...] Time - 07/25/2024 07:45 AM) ?LAB: [facility]. Panel Fast (Collection Date & Time - [...] Time - 07/25/2024 07:45 AM) ?LAB: [facility]. Panel Fast (Collection Date & Time - [...] Time - 07/25/2024 07:45 AM) ?LAB: [facility]. Panel Fast (Collection Date & Time - 07/25/2024 07:45 AM) ?LAB: Lipid Panel (Collection Date & Time - 07/25/2024 07:45 AM) ?LAB: Vitamin D 25-OH Total (Collection Date & Time - 07/25/2024 07:45 AM) ?LAB: UA ClnCatch+Micro w/rflx Cult (Collection Date & Time - 07/25/2024 07:45 AM) * Procedure Codes:?61070 VENIP UNCT, ROUTINE* * * The named appointment provid er may or may not be the originator of this progress note, and it is not deemed complete until electronically signed by the appointment provider. Sign off status: Pending * Provider:?Paolo Mcmahon MD Date:?1 09/25/2023 Generated for Tali childs/Judy/Randyitting on:?10/19/2024 02:48 PM EST
== END 2024-10-19 12:57 | disposition home or self-care (01) ==
PROVIDERS: PCP Internal Medicine; Visit Provider Student in an Organized Health Care Education/Training Program
DX: E04.2 Nontoxic multinodular goiter (principal)
CPT/HCPCS: 99213

== ENCOUNTER 2025-01-10 06:53 | Outpatient (REF) | payer OTHER, SELFPAY ==
--- NOTE | ~2025-01-10 | XR_ITS ---
EXAMINATION: XR CHEST CLINICAL INFORMATION: PERSISTENT COUGH COMPARISON: August 03, 2016. TECHNIQUE: 2 views of the chest were obtained. FINDINGS: No consolidation, pleural effusion or pneumothorax. Cardiomediastinal silhouette size is normal. Multilevel thoracic spondylosis. Patient's large body habitus. XR/XR chest 2V IMPRESSION: No acute airspace disease. Electronically signed by: Kevin Delatorre MD 01/10/2025 07:40 AM EDT
== END 2025-01-10 06:54 | disposition home or self-care (01) ==
LOC: HO.XRAY 06:53
PROVIDERS: PCP Internal Medicine; Visit Provider Internal Medicine
DX: R05.3 Chronic cough (principal)
CPT/HCPCS: 71046

== ENCOUNTER → 2025-01-10 07:02 | Outpatient (BNV) | payer OTHER, SELFPAY | PROVIDERS: PCP Internal Medicine; Visit Provider Radiology Diagnostic Radiology | DX: R05.3 Chronic cough (principal) | CPT/HCPCS: 71046 ==

== ENCOUNTER 2025-04-09 12:17 | Outpatient (REF) | payer OTHER, SELFPAY ==
--- OUTSIDE RECORDS SUMMARY | 2025-01-09 10:15 | XMS_ITS ---
Author Organization Paolo Mcmahon MD Address [address] [place] [phone] Support Name Relationship Address Phone Paolo Mcmahon [facility]giver [facility] [address] [place] [phone] Nicolas Snyder Caregiver [facility] [address] [place] [phone] Akosua Cazares Caregiver 10 [facility] [address] [place] [address] [phone] Rashi Luna Caregiver [address] [facility] [address] [place] [phone] Sejal Graff Caregiver 10 [facility] rive [address] [place] [phone] NEGRITA Kimble Caregiver 10 [facility] ve [address] [place] [address] [phone] Ramana Vieira Caregiver 10 [facility] [address] [place] [phone] Larisa Redd Caregiver 10 [facility] [address] ve [address] [place] [address] [phone] Unavailable Emergency Contact Unknown Lucy Carranza Guarantor Unknown [phone] Care Team Providers Care Fork Lift Mechanic Name Role Phone Paolo Mcmahon Primary Care Provider Allergies No Known Allergies REASON FOR VISIT still coughing no other Covid symptoms, Video [phone] Medications Medication SIG (Take, Route, Frequency, Duration) [...] Location Date Provider Diagnosis Paolo Mcmahon MD [address] [place] [address] [place] [phone] 01/09/2025 Paolo Mcmahon Hiatal hernia K44.9 and Persistent cough R05.3 Assessments Encounter Date Diagnosis (ICD Code) Assessment Notes Treatment Notes Treatment Clinical Notes Section Notes 01/09/2025 Hiatal hernia (ICD-10 - K44.9) patient verbalized understanding of medicationand directions for use 01/09/2025 Persistent cough (ICD-10 - R05.3) patient verbalized understanding of the medication and directions for use, pending diagnostic testing/ order faxed to [facility] [facility] Patient Reg Plan Of Treatment Medication Medication [...] use, pending diagnostic testing/ order faxed to [facility] [place] Patient Reg Pending Test Test Name Order Date XR CHEST 2 VIEW PA & LAT 01/09/2025 Next Appt Details Provider Name:Paolo Denisse Burt ier, 07/17/2025 07:15:00 AM, [address] [place] [address], [address], [phone], Provider Name:Paolo Salcedo Balbirchantal ier, 07/26/2025 02:30:00 PM, [address] [place] [address], [address], [phone], Progress Notes * GAYLE Lucy PDOB: [birth year] (64 yo F)Acc No.[id number]:01/09/2025 Patient: Lucy CHRISTIANSON Provider: Catrina Mcmahon MD :1960 A ge:64 Y S ex:Female Date:01/09/2025 Address:[address] [place], [place] [phone] Subjective: * Chief Complaints: * s till coughing no other Covid symptomsVideo [phone] * HPI: S ymptom(s): Telehealth L ocation of provider rendering services: 1 0 [facility], [address], L ocation of patient: a t address listed [...] enies S ore throat. R espiratory: Admits C ough. D enies S hortness of breath at rest. D enies S hortness of breath with exertion. D enies S putum production. A dmits W heezing. M usculoskeletal: Patient denies m uscle aches. [...] meal, Orally, Once a day, 30 day(s), 30. Notes: patient verbalized understanding of medicationand directions for use * Procedure Codes: * * Sign off status: Completed true * Provider: Catrina Mcmahon MD Date: 0 01/09/2025 Generated for Tali childs/Judy/Wilfred on: 0 04/09/2025 01:24 PM EDT History and Physical Notes * HPI (History of Present Illness) Category Sub-Category Detail Notes Category Not es Symptom(s) Telehealth Location of [facility] ider rendering services:: [address], [...]
--- NOTE | ~2025-04-09 | MM_ITS ---
EXAMINATION: MM SCREENING DIGITAL BREAST TOMOSYNTHESIS, BILATERAL CLINICAL INFORMATION: Screening. Asymptomatic. COMPARISON: Comparison made to multiple prior, most recent March 28, 2024, and most remote February 26, 2020. TECHNIQUE: Digital breast tomosynthesis is performed in both the craniocaudal and mediolateral oblique views along with computer-aided detection (CAD). FINDINGS: BREAST COMPOSITION: The breasts are heterogeneously dense, which may obscure small masses (ACR BI-RADS breast composition Category c). RIGHT BREAST: No significant masses, suspicious calcifications or other abnormalities are seen. LEFT BREAST: Remote history of cyst excision. No significant masses, suspicious calcifications or other abnormalities are seen. MM/MM tomosynthesis screening BI IMPRESSION: BILATERAL BREASTS: Benign, no mammographic evidence of malignancy. Normal interval follow-up is recommended in 12 months. ASSESSMENT: BI-RADS 2 - Benign Findings RECOMMENDATION: Routine annual mammography screening. FOLLOW-UP: 1 year F/U This examination should not preclude the clinical evaluation of a suspicious palpable abnormality. This patient's information was entered into a reminder system with a target due date for their next mammogram. Electronically signed by: Altaf Che MD 04/10/2025 09:43 PM EDT
--- OUTSIDE RECORDS SUMMARY | 2025-04-09 13:24 | XMS_ITS | Clinical Summary ---
Author Organization [facility] Address [address] [place] [id number] Care Team Providers Care Parole Supervisor Name Role Phone Paolo Mcmahon MD Primary Care Provider [phone] Allergies No known active allergies Social History Tobacco Use Types Packs/Day Years Used Date Smoking Tobacco: Never Assessed Comments Unknown Sex and Gender Information Value Date Recorded Sex Assigned at Not on file Legal Sex Female 6:25 PM EST Gender Identity Not on file Sexual Orientation Not on file Plan of Treatment Health Maintenance Due Date Last Done Comments Hepatitis C Virus Screening 1960 HIV Screening 1974 DTaP/Tdap/Td Vaccines (1 - Tdap) 1980 Pap Smear (Ages 21-65) 1982 Mammogram 2001 Colonoscopy 2006 Pneumococcal Vaccines 50+ (1 of 1 - PCV) 2011 Zoster (Shingles) Vaccine (1 of 2) 2011 COVID-19 Vaccine ( - 2023-2 5 season) 2024 Influenza Vaccine 03/23/2025 06/01/2024 RSV Vaccine 60 years and old er and Patients (1 - 1-dose 75+ series) 2036 Hepatitis B Vaccines Aged Out No long er eligible based on patient's age to complete this topic Insurance [facility] Care Teams Parole Supervisor Relationship Specialty Start Date End Date Paolo Mcmahon MD [address] [place] [address] [place] [address] PCP - General Internal Medicine 06/13/24
--- OUTSIDE RECORDS SUMMARY | 2025-04-09 13:24 | XMS_ITS | Patient Health Record ---
Author Organization [facility] Address [address] [place] [address] Care Team Providers Care Enrichment Teacher Name Role Phone Paolo Mcmahon MD Primary Care Provider Rashi Greer [phone] Allergies No Known Allergies Reason For Referral No Information Medications Medication SIG (Take, Route, Frequency, Duration) [...] every 4 hrs 03/11/2022 Active Ibuprofen Active Immunizations Vaccine Route Administration Date Status Comme nts Influenza Unknown 07/15/2021 Administered Problems Problem Type SNOMED Code ICD Code Onset Dates Problem Status W/U Status Risk Notes Problem Screening for malignant neoplasm of colon (884839581) Encounter for screening for malignant neoplasm of colon (Z12.11) Active confirmed Problem Pre-procedure evaluation check (437997885) Encounter for other preprocedural examination (Z01.818) Active confirmed Problem Diverticulosis of colon (717065956) Diverticulosis of colon (K57.30) Active confirmed Plan Of Treatment Future Test Test Name Order Date COLONOSCOPY 01/06/2012 COLONOSCOPY 03/11/2022 Insurance Providers Payer Name Payer Address Payer Phone Subscriber Number Group Number Insured Name Patient Relationship to Insured Coverage Start Date Coverage End Date [facility] [address] [facility] [place] [phone] [id number] АННА ARAUJO Self - patient is the insured Medical (General) History Medical History History ICD Code Asthma Denies [place],DM,CVA,renal disease HTN Negative colonoscopy in 01/2012 Surgical History Surgery Date(Month/Year) Breast cyst removed 1996 D & C 2021 Left knee surgery
--- OUTSIDE RECORDS SUMMARY | 2025-04-09 13:24 | XMS_ITS ---
Author Name [facility] Organization Unknown Problems Problem Status Onset Date Problem Type Date of Resoluti on Source Pain in left ankle and joints of left foot active EncounterDiagnosisAct [facility] Pain in right ankle and joints of right foot active EncounterDiagnosisAct HHCCT Encounters Encounter Type Encounter Reason Primary Diagnosis Location Date Ambulatory [facility] 06/13/2024 Ambulatory Pain in left ankle and joints of left foot Pain in left ankle and joints of left foot [facility] Care Team Organization Name Specialty Phone Email Start Date End Da te [facility] Primary Care 06/16/2024 11/08/2024 [facility] [facility] Primary Care 06/13/2024 [facility] 05/30/2024
--- OUTSIDE RECORDS SUMMARY | 2025-04-09 13:24 | XMS_ITS | Patient Health Record ---
Author Organization [facility] Address [address] [facility] [place] [address] Care Team Providers Care Product Support Representative Name Role Phone Paolo Mcmahon MD Primary Care Provider Ramana Azevedo Unavailable [phone] Allergies Allergen (clinical drug ingredient) Drug/Non Drug Allergy documented on EMR Reaction Allergy Type Onset Date Status Latex irratation if sh e wear it Drug Allergy Active Reason For Referral No Information Medications Medication SIG (Take, Route, Frequency, Duration) Notes Start Date End Date Status Cyclobenzaprine HCl 5 MG 1 tablet as nee ded Orally Three times a day; Duration: 07 days 12/14/2017 Not-Takin g Spiriva Respimat 1.25 MCG/ACT 2 puffs Inhalation Once a day 08/30/2017 Not-Taking Transderm-Scop 1.5 MG as directed Transdermal every 3 days; Duration: 10 days 09/07/2014 Not-Taking Ventolin HFA 108 (90 Base) MCG/ACT 2 puffs as needed Inhalation every 4 hrs; Duration: 90 Active Flonase Allergy Relief 50 MCG/ACT 2 sprays in each nostril Nasally Once a day; Duration: 30 day(s) PRN Active Valtrex 1 GM 1 tablet Orally ever y 24 hrs; Duration: 14 days PRN Active Ativan 0.5 MG 1 tablet at bedtime as needed Orally Once a day 01/03/2013 Not-Taking Ibuprofen 800 MG 1 tablet Orally Thre e times a day; Duration: 90 07/10/2013 Active Advair Diskus 500-50 MCG/DOSE 1 puff Inhalation Twice a day; Duration: 90 days 05/31/2012 Active Albuterol Sulfate (2.5 MG/3ML) 0.083% as directed Inhalation every 6 hrs prn 08/30/2017 Active Social History Tobacco Use: Social History Observation Description Date Details (start date - stop date) Never Smoker NA - NA Tobacco Use/Smoking Question Answer Notes Are you a: nonsmoker Additional Findings: Tobacco Non-User Current no n-smoker Alcohol Screen Question Answer Notes Did you have a drink containing alcohol in the p ast year? Yes Points 0 Interpretation Negative Tobacco use other than smoking: Question Answer Notes Are you an other tobacco user? No Problems Problem Type SNOMED Code ICD Code Onset Dates Problem Status W/U Status Risk Notes Problem Hallux valgus (acquired), right foot (M20.11) Active confirmed Plan Of Treatment Pending Test Test Name Order Date X ray : Foot, right 3V 01/21/2018 Insurance Providers Payer Name Payer Address Payer Phone Subscriber Number Group Number Insured Name Patient Relationship to Insured Coverage Start Date Coverage End Date [facility] [address] [place] [phone] [id number] Lucy Carranza Self - patient is the insured Medical (General) History Medical History History ICD Code Headaches/Migraines asthma Back,Hip,and Knee pain Hiatal hernia Reflux ( GERD) Chicken pox Surgical History Surgery Date(Month/Year) arthroscopic knee surgery 11/2014 cyst removal 04/1998
== END 2025-04-09 12:18 | disposition home or self-care (01) ==
LOC: HO.MAMMO 12:17
PROVIDERS: Absent Provider Student in an Organized Health Care Education/Training Program; PCP Internal Medicine; Visit Provider Internal Medicine
DX: Z12.31 Encounter for screening mammogram for malignant neoplasm of breast (principal)
CPT/HCPCS: 77063; 77067

== ENCOUNTER → 2025-04-09 12:30 | Outpatient (BNV) | payer OTHER, SELFPAY | PROVIDERS: Absent Provider Student in an Organized Health Care Education/Training Program; PCP Internal Medicine; Visit Provider Radiology Body Imaging | DX: Z12.31 Encounter for screening mammogram for malignant neoplasm of breast (principal) | CPT/HCPCS: 77063; 77067 ==

== ENCOUNTER 2025-07-16 11:26 | Outpatient (REF) | payer OTHER, SELFPAY ==
[2025-07-16 11:28] LABS: MANUAL DIFF FLAG NO
[2025-07-16 11:37] LABS: Appearance Urine Clear; Glucose Urine UA Negative (Negative); PH 5.5 (5.0-9.0); Specific Gravity - Urine >= 1.030 (1.005-1.025); UMIC TRIGGER UACC YES
[2025-07-16 11:41] LABS: Hematocrit 36.9 % (37.0-47.0); Hemoglobin 12.4 g/dl (12.0-16.0); Imm Gran Abs Auto 0.02 X10*3/uL (0.00-0.03); Imm Gran Pct Auto 0.3 % (0.0-0.4); Lymphocytes Absolute Auto 2.2 X10*3/uL (1.2-4.9); Mean Corpuscular HGB Conc 33.6 g/dl (31.0-35.0); Mean Corpuscular Hemoglobin 30.0 pg (27.0-33.0); Mean Corpuscular Volume 89.1 fL (80.0-98.0); NRBC Abs Auto 0.000 X10*3/uL (0.0-0.012); NRBC Pct Auto 0.0 /100WBC (0.0-0.2); Platelet Count 351 X10*3/uL (160-400); Red Blood Count 4.14 X10*6/uL (4.20-5.50); White Blood Count 6.6 X10*3/uL (4.8-10.8)
[2025-07-16 14:55] LABS: Alanine Aminotransferase 24 U/L (0-31); Albumin Level 4.3 g/dL (3.5-5.0); Alkaline Phosphatase 97 U/L (39-117); Anion Gap 13 (12-20); Aspartate Amino Transferase 28 U/L (5-31); Blood Urea Nitrogen 20 mg/dL (9-16); Calcium 9.5 mg/dL (8.4-10.2); Carbon Dioxide 27 mmol/L (22-29); Chloride 106 mmol/L (96-108); Cholesterol 219 mg/dL (<200); Estimated Glomerular Filt Rate > 60; HDL Cholesterol 71 mg/dL (>40); Potassium 3.9 mmol/L (3.3-5.1); Sodium 142 mmol/L (135-145); Total Protein 7.1 g/dL (6.5-8.0); Triglycerides 109 mg/dL (<150)
--- OUTSIDE RECORDS SUMMARY | 2025-07-16 15:04 | XMS_ITS | Clinical Summary ---
Author Organization [facility] Address [address] [place] [address] Care Team Providers Care Prenatal Nurse Name Role Phone Paolo Mcmahon MD Primary Care Provider [phone] Allergies No known active allergies Encounters Date Type Department Care Team Description 05/15/2025 11:00 AM EDT Office Visit [facility] [place] [address] Davida Schmidt PA-C Acquired hallux rigidus of right foot (Primary Dx) from Last 3 Months Social History Tobacco Use Types Packs/Day Years Used Date Smoking Tobacco: Never Assessed Comments Unknown Sex and Gender Information Value Date Recorded Sex Assigned at Female 05/15/2025 8:58 AM EDT Legal Sex Female 6:25 PM EST Gender Identity Female 05/15/2025 8:58 AM EDT Sexual Orientation Heterosexual (straight) 05/15 8:58 AM EDT Plan of Treatment Health Maintenance Due Date Last Done Comments Hepatitis C Virus Screening 1960 HIV Screening 1974 DTaP/Tdap/Td Vaccines (1 - Tdap) 1980 Pap Smear (Ages 21-65) 1982 Mammogram 2001 Colonoscopy 2006 Pneumococcal Vaccines 50+ (1 of 1 - PCV) 2011 Zoster (Shingles) Vaccine (1 of 2) 2011 Influenza Vaccine 03/23/2025 06/01/2024 COVID-19 Vaccine ( - 2023-2 5 season) 2025 RSV Vaccine 50 years and old er and Patients (1 - 1-dose 75+ series) 2036 Hepatitis B Vaccines Aged Out No long er eligible based on patient's age to complete this topic Procedures Procedure Name Priority Date/Time Associated Diagnosis Comments [place] ARTHROCENTESIS ASPIR&/INJ SMALL JT/BURSA W/O US Routine 05/15/2025 11:00 AM EDT Acquired hallux rigidus of right foot from Last 3 Months Results * FL ARTHROCENTESIS ASPIR&/INJ SMALL JT/BURSA W/O US (05/15/2025 11:00 AM EDT) Narrative Davida Schmidt PA-C - 05/15/2025 11:00 AM EDT Davida Schmidt PA-C 05/15/2025 12:21 PM Small Joint Arthrocentesis: R great MTP on 05/15/2025 11:00 AM Indications: pain Details: 25 G needle, dorsal approach Medications: 3 mg betamethasone acetate-betamethasone sodium phosphate 6 (3-3) MG/ML Outcome: tolerated well, no immediate complications Procedure, treatment alternatives, risks and benefits explained, specific risks discussed. Immediately prior to procedure a time out was called to verify the correct patient, procedure, equipment, dealer support technician and site/side marked as required. Patient was prepped and draped in the usual sterile fashion. Davida Schmidt PA-C PROCEDURE/MINOR SURGICAL O RDERABLES Final Result from Last 3 Months Insurance [facility] Care Teams Prenatal Nurse Relationship Specialty Start Date End Date Paolo Mcmahon MD [address] [place] [address] Dr Costa, [place] [address] PCP - General Internal Medicine 06/13/24
== END 2025-07-16 11:27 | disposition home or self-care (01) ==
LOC: HO.LNP 11:26
PROVIDERS: Visit Provider Internal Medicine
DX: Z00.00 Encounter for general adult medical examination without abnormal findings (principal); I10 Essential (primary) hypertension; E55.9 Vitamin D deficiency, unspecified; E78.00 Pure hypercholesterolemia, unspecified
CPT/HCPCS: 80053; 80061; 81001; 82306; 85025

== ENCOUNTER 2025-08-07 10:07 | Outpatient (AMB) | payer OTHER, SELFPAY ==
--- OUTSIDE RECORDS SUMMARY | 2024-07-25 02:45 | XMS_ITS ---
Author Organization Paolo Mcmahon MD Address [address] [place] [phone] Support Name Relationship Address Phone Paolo Mcmahon Caregiver [address] [facility] [address] [place] [phone] Nicolas Snyder [facility] [address] [place] [phone] Akosua Cazares Caregiver [address] [facility] [address] [place] [phone] Rashi Luna Caregiver [address] [facility] [address] [place] [phone] Sejal Graff Caregiver [address] [facility] [address] [place] [phone] NEGRITA Kimble [facility]giver [facility] [address] [place] [phone] Ramana Vieira Caregiver [address] [facility] [address] [place] [phone] Larisa Redd Caregiver [address] [facility] [address] [place] [phone] Unavailable Emergency Contact Unknown [phone] Lucy Araujo Guarantor Unknown [phone] Care Team Providers Care Pattern Layout Worker Name Role Phone Paolo Mcmahon Primary Care Provider Results Component Value Reference Range Notes Complete Blood Count Auto Di ff Reviewed date:07/25/2024 12:42:32 PM Interpretation: Performing Lab:[facility], [address] [place] [phone] Notes/Report: White Blood Count 7.8 4.8-10.8 X10*3/uL [...] NRBC Abs Auto 0.000 0.0-0.012 X10*3/uL Comprehensive [place]. Panel Fa st Reviewed date:07/25/2024 05:08:37 PM Interpretation: Performing Lab:[facility], [address] [place] [address], [place] [phone] Notes/Report: Sodium 139 135-145 mmol/L Potassium 3.6 [...] Panel Reviewed date:07/25/2024 01:24:48 PM Interpretation: Performing Lab:[facility], [address] [place] [phone] Notes/Report: Triglycerides 103 <150 mg/dL Desirable Triglyceride: [...] Total Reviewed date:07/25/2024 01:24:15 PM Interpretation: Performing Lab:[facility], [address] [place] [phone] Notes/Report: Vitamin D 25-OH Total 54.0 >30 [...] t Reviewed date:07/25/2024 05:10:32 PM Interpretation: Performing Lab:[facility], [address] [place] [phone] Notes/Report: Urine, Clean Catch Color Urine Yellow Appearance Urine Clear PH 5.5 5.0-9.0 Glucose Urine UA Negative Negative mg/dL Urine Blood Moderate (2+) Negative Specific [place] - Urine 1.025 1.005-1.025 Urine Protein Negative [...] Date Provider Diagnosis Paolo Mcmahon MD [address] [facility] [address] [place], [place] [phone] 07/25/2024 Paolo Mcmahon Blood tests for rout [...] Next Appt Details Provider Name:Paolo Burt ier, 08/31/2025 02:30:00 PM, [address], [address], [place], [place], [phone], Progress Notes * Lucy ARAUJO PDOB: [birth year] (65 yo F)Acc No.[id number]:07/25/2024 Progress Note Patient: Catrina QUINN Lucy Salcedo Provider: Catrina Mcmahon MD :1960 A ge:64 Y S ex:Female Date:07/25/2024 Address:[address] [place] [phone] Subjective: * Chief Complaints: * 1 . [...] - 07/25/2024 07:45 AM) L AB: Comprehensive [place]. Panel Fast (Collection Date & Time - [...] - 07/25/2024 07:45 AM) L AB: Comprehensive [place]. Panel Fast (Collection Date & Time - [...] - 07/25/2024 07:45 AM) L AB: Comprehensive [place]. Panel Fast (Collection Date & Time - [...] 1 09/25/2023 Generated for Tali childs/Judy/Wilfred on: 10/08/2024 12:29 PM EST
--- OUTSIDE RECORDS SUMMARY | 2024-11-06 02:12 | XMS_ITS ---
Author Organization Paolo Mcmahon MD Address [address] [place] [phone] Care Team Providers Care Plastic Surgeon Name Role Phone Paolo Mcmahon Primary Care Provider REASON FOR VISIT New Refill Request Medications Medication SIG (Take, Route, Frequency, Duration) Notes Start Date End Date Status Wixela Inhub 250-50 MCG/ACT INHALE 1 PUFF INTO THE LUNGS TWICE A DAY FOR 90 DAYS Inhalation Twice a day for 30 days Active Encounters Encounter Location Date Provider Diagnosis Paolo Mcmahon MD [address] [place], [place] [phone] 11/06/2024 Paolo Mcmahon Mild intermittent asthma without complication J45.20 Assessments Encounter Date Diagnosis (ICD Code) Assessment Notes Treatment Notes Treatment Clinical Notes Section Notes 11/06/2024 Mild intermittent asthma without complication (ICD-10 - J45.20) Plan Of Treatment Medication Medication Name Sig Start Date Stop Date Notes Wixela Inhub 250-50 MCG/ACT INHALE 1 PUF F INTO THE LUNGS TWICE A DAY FOR 90 DAYS Inhalation Twice a day for 30 days Next Appt Details Provider Name:Paolo Burt ier, 08/31/2025 02:30:00 PM, [address], [address], [place], [place], [phone], Progress Notes * Lucy ARAUJO PDOB: [birth year] (64 yo F)Acc No.[id number]:11/06/2024 Patient: Lucy CHRISTIANSON :1960 A ge:64 Y S ex:Female Address:[address] [place] [phone] * Refills Refill Wixela Inhub Aerosol Powder Breath Activated, 250-50 MCG/ACT, Inhalation, 1, INHALE 1 PUFF INTO THE LUNGS TWICE A DAY FOR 90 DAYS, Twice a day, 30 days, Refills=11 * true * Date: Generated for Tali childs/Judy/Wilfred on: 1 10/08/2024 12:29 PM EST
--- OUTSIDE RECORDS SUMMARY | 2025-07-16 03:15 | XMS_ITS ---
Author Organization Paolo Mcmahon MD Address [address] [place] [phone] Care Team Providers Care Motor Scooter Repairer Name Role Phone Paolo Mcmahon Primary Care Provider Results Component Value Reference Range Notes Complete Blood Count Auto Di ff Reviewed date:07/16/2025 12:07:05 PM Interpretation: Performing Lab:[facility], [address] [place] [phone] Notes/Report: White Blood Count 6.6 4.8-10.8 X10*3/uL Red Blood Count 4.14 4.20-5.50 X10*6/uL Hemoglobin 12.4 12.0-16.0 g/dl Hematocrit 36.9 37.0-47.0 % Mean Corpuscular Volume 89.1 80.0-98.0 fL Mean Corpuscular Hemoglobin 30.0 27.0-33.0 pg Mean Corpuscular HGB Conc 33.6 31.0-35.0 g/dl Red Cell Distribution Width 11.8 11.0-16.0 % Platelet Count 351 160-400 X10*3/uL Mean Platelet Volume 9.7 9.4-12.3 fL Neutrophils Percent Auto 56.0 45-73 % Imm Gran Pct Auto 0.3 0.0-0.4 % Lymphocytes Percent Auto 33.4 20-40 % Monocytes Percent Auto 7.9 2-11 % Eosinophils Percent Auto 1.8 0-4 % Basophils Percent Auto 0.6 0-2 % NRBC Pct Auto 0.0 0.0-0.2 /100WBC Neutrophils Absolute Auto 3.7 2.0-8.3 x10*3/u L Imm Gran Abs Auto 0.02 0.00-0.03 X10*3/uL Lymphocytes Absolute Auto 2.2 1.2-4.9 X10*3/u L Monocytes Absolute Auto 0.5 0.1-1.2 X10*3/uL Eosinophils Absolute Auto 0.1 0.0-0.4 X10*3/u L Basophils Absolute Auto 0.0 0.0-0.2 X10*3/uL NRBC Abs Auto 0.000 0.0-0.012 X10*3/uL Comprehensive [place]. Panel Fa st Reviewed date:07/16/2025 05:38:27 PM Interpretation: Performing Lab:[facility], [address] [place] [phone] Notes/Report: Sodium 142 135-145 mmol/L Potassium 3.9 3.3-5.1 mmol/L Chloride 106 96-108 mmol/L Carbon Dioxide 27 22-29 mmol/L Anion Gap 13 12-20 Blood Urea Nitrogen 20 9-16 mg/dL Creatinine 0.82 0.5-1.4 mg/dL Estimated Glomerular Filt Rate > 60 Chronic Kidney Disease: Estimated GFR < 60 mL/min/1.73m2 Severe Kidney Disease: Estimated GFR < 15 mL/min/1.73m2 Glucose Fasting 87 60-99 mg/dL Calcium 9.5 8.4-10.2 mg/dL Bilirubin Total 0.6 0.0-1.0 mg/dL Aspartate Amino Transferase 28 5-31 U/L Alanine Aminotransferase 24 0-31 U/L Total Protein 7.1 6.5-8.0 g/dL Albumin Level 4.3 3.5-5.0 g/dL Alkaline Phosphatase 97 39-117 U/L Lipid Panel Reviewed date:07/16/2025 05:32:53 PM Interpretation: Performing Lab:[facility], [address] [place] [phone] Notes/Report: Triglycerides 109 <150 mg/dL Desirable Triglyceride: less than 150 mg/dL Borderline High Triglyceride 150-199 mg/dL High Triglyceride: 200-499 mg/dL Very High Triglyceride: greater than or equal to 5OO mg/dL Cholesterol 219 <200 mg/dL Desirable Cholesterol: less than 200 mg/dL Borderline High Cholesterol: 200-239 mg/dL High Cholesterol: greater than 239 mg/dL LDL Cholesterol Calculated 127 <100 mg/dL Desirable LDL: less than 100 mg/dL Near Optimal/Above Optimal LDL: 110-129 mg/dL Borderline High LDL: 130-159 mg/dL High LDL: 160-189 mg/dL Very High LDL: greater than or equal to 190 mg/dL HDL Cholesterol 71 >40 mg/dL Desirable HDL: greater than 40 mg/dL Note: This HDL assay may give artificially low results in patients with liver disease. Vitamin D 25-OH Total Reviewed date:07/16/2025 05:34:40 PM Interpretation: Performing Lab:[facility], [address] [place] [phone] Notes/Report: Vitamin D 25-OH Total 19.6 >30 ng/mL Health Based Reference Values* < 20 ng/mL Deficient 20-30 ng/mL Insufficient > 30 ng/mL Sufficient *Ebonie MORRISSEY. N Engl J Med. 2007;357:266-280 There is no well-established upper level of normal vitamin D levels. Some laboratories use 50 ng/mL as an upper limit of normal. However, toxicity is patient-dependent and may occur at any level. Careful correlation with the patient's presentation is necessary and, if there is concern for vitamin D toxicity, treatment should be considered irrespective of the serum level. Care must be taken in interpreting Vitamin [...] LC-MS/MS. UA ClnCatch+Micro w/rflx Cul t Reviewed date:07/16/2025 05:37:13 PM Interpretation: Performing Lab:[facility], [address] [place] [phone] Notes/Report: Urine, Clean Catch Color Urine Yellow Appearance Urine Clear PH 5.5 5.0-9.0 Glucose Urine UA Negative Negative mg/dL Urine Blood Moderate (2+) Negative Specific [place] - Urine >= 1.030 1.005-1.025 Urine Protein Negative Neg-Trace mg/dL Urine Ketones Negative Negative mg/dL Nitrite Urine Negative Negative Leukocyte Esterase Urine Negative Negative RBC Urine 11-20 0-2 /HPF WBC Urine 0-5 0-5 /HPF Squamous Epithelial Cell Urine 0-2 0-2 /HPF Bacteria Urine None Seen None Seen Hyaline Casts Urine 0-2 0-2 /LPF REASON FOR VISIT yearly fasting labs Encounters Encounter Location Date Provider Diagnosis Paolo Mcmahon MD [address] [place] [address] [address] [place], [place] [phone] 07/16/2025 Paolo Mcmahon Blood tests for rout ine general physical examination Z00.00 ; Essential hypertension I10 ; Vitamin D deficiency E55.9 and Pure hypercholesterolemia E78.00 Assessments Encounter Date Diagnosis (ICD Code) Assessment Notes Treatment Notes Treatment Clinical Notes Section Notes 07/16/2025 [address] tests for rout ine general physical examination (ICD-10 - Z00.00) 07/16/2025 Essential hypertensi on (ICD-10 - I10) 07/16/2025 Vitamin D deficiency (ICD-10 - E55.9) 07/16/2025 Pure hypercholesterolemia (ICD-10 - E78.00) Plan Of Treatment Next Appt Details Provider Name:Paool Burt ier, 08/31/2025 02:30:00 PM, [address], [address], [place], [place], [phone], Progress Notes * Lucy ARAUJO PDOB: [birth year] (65 yo F)Acc No.[id number]:07/16/2025 Progress Note Patient: Lucy CHRISTIANSON Provider: Catrina Mcmahon MD :1960 A ge:65 Y S ex:Female Date:07/16/2025 Address:[address] [place], [place] [phone] Subjective: * Chief Complaints: * 1 . Yearly fasting labs. * Medical History: Objective: * Vitals: Assessment: * Assessment: 1. B lood tests for routine general physical examination - Z00.00 (Primary) 2 .?Essential hypertension - I10 3 . V itamin D deficiency - E55.9 ?4. P ure hypercholesterolemia - E78.00 Plan: * Treatment: 2. E ssential hypertension L AB: Complete Blood Count Auto Diff (Collection Date & Time - 07/16/2025 08:15 AM) L AB: Comprehensive [place]. Panel Fast (Collection Date & Time - 07/16/2025 08:15 AM) L AB: Lipid Panel (Collection Date & Time - 07/16/2025 08:15 AM) L AB: Vitamin D 25-OH Total (Collection Date & Time - 07/16/2025 08:15 AM) L AB: UA ClnCatch+Micro w/rflx Cult (Collection Date & Time - 07/16/2025 08:15 AM) 3. V itamin D deficiency L AB: Complete Blood Count Auto Diff (Collection Date & Time - 07/16/2025 08:15 AM) L AB: Comprehensive [place]. Panel Fast (Collection Date & Time - 07/16/2025 08:15 AM) L AB: Lipid Panel (Collection Date & Time - 07/16/2025 08:15 AM) L AB: Vitamin D 25-OH Total (Collection Date & Time - 07/16/2025 08:15 AM) L AB: UA ClnCatch+Micro w/rflx Cult (Collection Date & Time - 07/16/2025 08:15 AM) 4. P ure hypercholesterolemia L AB: Complete Blood Count Auto Diff (Collection Date & Time - 07/16/2025 08:15 AM) L AB: Comprehensive [place]. Panel Fast (Collection Date & Time - 07/16/2025 08:15 AM) L AB: Lipid Panel (Collection Date & Time - 07/16/2025 08:15 AM) L AB: Vitamin D 25-OH Total (Collection Date & Time - 07/16/2025 08:15 AM) L AB: UA ClnCatch+Micro w/rflx Cult (Collection Date & Time - 07/16/2025 08:15 AM) * Procedure Codes: 3 6415 VENIPUNCT, ROUTINE* * * The named appointment provid er may or may not be the originator of this progress note, and it is not deemed complete until electronically signed by the appointment provider. Sign off status: Pending * Provider: Catrina Mcmahon MD Date: 1 09/15/2024 Generated for Tali childs/Judy/Randyitting on: 10/08/2024 12:29 PM EST
--- OUTSIDE RECORDS SUMMARY | 2025-08-06 08:00 | XMS_ITS ---
Author Organization Paolo Mcmahon MD Address [address] [place] [phone] Care Team Providers Care Full Time Babysitter Name Role Phone Paolo Mcmahon Primary Care Provider Allergies No Known Allergies REASON FOR VISIT sinus congested and draining, coughing x 4 days negative for Covid this AM, Video [phone] Medications Medication SIG (Take, Route, Frequency, Duration) [...] Encounters Encounter Location Date Provider Diagnosis Paolo Mcamhon MD [address] [place], [place] [phone] 08/06/2025 Paolo Mcmahon URI (upper respiratory infection) J06.9 Assessments Encounter Date Diagnosis (ICD Code) Assessment Notes Treatment Notes Treatment Clinical Notes Section Notes 08/06/2025 URI (upper respiratory infection) (ICD-10 - J06.9) will just observe unless she gets worse Plan Of Treatment Treatment Notes Assessment Notes URI (upper respiratory infection) will j ust observe unless she gets worse Next Appt Details Provider Name:Paolo holland, 08/31/2025 02:30:00 PM, [address], [address], [place], [place], [phone], Progress Notes * Lucy ARAUJO PDOB: [birth year] (65 yo F)Acc No.[id number]:08/06/2025 Patient: Lucy CHRISTIANSON Provider: Catrina Mcmahon MD :1960 A ge:65 Y S ex:Female Date:08/06/2025 Address:[address] [place] [address], [id number] Subjective: * Chief Complaints: * s inus congested and draining, coughing x 4 days negative for Covid this AMVideo [phone] * HPI: S ymptom(s): patient is a [...] 1 10/07/2024 Generated for Tali childs/Judy/Randyitting on: 10/08/2024 12:30 PM EST History and Physical Notes * HPI (History of Present Illness) Category Sub-Category Detail Notes Category Not es Symptom(s) Telehealth Location of [facility] rendering services:: [address], [address] Location of patient:: [...]
[2025-08-07 10:10] VITALS: BP 138/82; PULSE 71; O2SAT 98; BMI 30.9
--- NOTE | 2025-08-07 10:10 | AM.OFFWIN_ITS ---
Intake Vital Signs 08/07/25 10:10 Height 5 ft 4 in Weight 180 lb BMI 30.9 BP 138/82 Blood Pressure Location Rt brachial Position Sitting Pulse 71 Pulse Source Pulse Oximeter Pulse Oximetry (%) 98 Oxygen Delivery Method Room Air Intake Visit Reasons: EP left hand finger injury Intake Note: Patient presents c/o left middle finger swollen, painful, red, throbbing x3 days. Patient Tobacco Use Status: Never used Tobacco Allergies No Known Allergies (No Known Allergies*) Allergy (Verified 08/07/25 10:13) Do you need a note to return to daycare/school/sports/work: No HPI HPI Comments History of Present Illness Details History of Present Illness - The patient is a 65-year-old female pr esenting with a swollen finger, which started approximately two days ago. - She reports the swelling and tendernes s was worse this morning upon waking. - She does not recall any specific injur y or hangnail. - The patient reports having a manicure two weeks prior to the onset of symptoms. - She denies any drainage from the area but affirms it is tender. - She has tried using hydrogen peroxide at home without significant bubbling and has not attempted to soak it. Review of Systems - Integumentary: Reports finger swelling and tenderness. - Denies drainage. All systems reviewed and are unremarkable except as noted in HPI Physical Exam General: Cooperative, healthy appearing, comfortable, no acute distress and well developed Orientation: Patient oriented x3 Limitations: No limitations Head: Normal to inspection Ears: Hearing grossly normal bilaterally Nose: Normal External nose present Face and sinus: Normal facial exam Eyes: Appearance normal, both eyes and all related structures Neck: Normal visual inspection and Yes full ROM Respiratory: Normal respiratory effort and able to speak in complete sentences. Skin: No rashes or lesions noted Neuro: Patient oriented x3 Extremities: left 3rd digit with dark erythema, tender to touch, no drainage observed. Normal to inspection otherwise. [facility] Medical History (Updated 09/29/24 @ 07:50 by May Bolivar MD) Multinodular goiter Tendonitis of wrist, left History of COVID-19 Hypertension Asthma Surgical History Hx of surgical procedure (01/25/24) History of breast lump/mass excision Hx of dilation and curettage H/O colonoscopy S/P arthroscopic surgery of left knee Social History Comment: counts correct Patient Tobacco Use Status: Never used Tobacco Current occupational status: employed Current occupation: Desk work - right handed Physical Exam Vital Signs: Last Vital Signs Pulse 71 08/07/25 10:10 BP 138/82 08/07/25 10:10 Pulse Ox 98 08/07/25 10:10 Oxygen Delivery Method Room Air 08/07/25 10:10 BMI result Body Mass Index 30.9 Assessment & Plan Assessment & Plan (1) Abscess: Code(s): L02.91 - Cutaneous abscess, unspecified Plan: Plan Patient was informed and verbally consented to the use of an ambient scribe for clinic note documentation during this visit. - The presentation is not typical for a paronychia, as the inflammation is located more on the pad of the finger rather than the nail fold. - The dark appearance suggests a hematoma or blood collection under the skin rather than a fluctuant, drainable abscess. - Due to the concern that an incision and drainage procedure would likely yield blood and not be therapeutic, a course of oral antibiotics was chosen. - Prescribed doxycycline to be taken twice daily for seven days. - Recommended the patient soak the affected finger in warm water with Epsom salts several times a day to encourage drainage if pus develops. - Advised to avoid manicures for at least one week to allow for healing. - Educated the patient on doxycycline-related photosensitivity and advised her to avoid sun exposure. - Advised the patient to avoid dairy products if she experiences stomach upset while taking doxycycline. Medications: New doxycycline hyclate 100 mg PO BID 14 tabs 0RF Coding Level of Care Code Est Pt Level 3 (55481) Diagnoses Abscess L02.91
--- OUTSIDE RECORDS SUMMARY | 2025-08-07 12:29 | XMS_ITS | Clinical Summary ---
Author Organization [facility] Address [address] [place] [address] Care Team Providers Care Bone Grinder Name Role Phone Paolo Mcmahon MD Primary Care Provider [phone]- [phone] Allergies No known active allergies Encounters Date Type Department Care Team Description 05/15/2025 11:00 AM EDT Office [place] [facility] [address] Davida Schmidt PA-C Acquired hallux rigidus of [...] Vaccine 03/23/2025 06/01/2024 COVID-19 Vaccine ( - 2024-2 6 season) 2025 RSV Vaccine 50 years and old er and Patients (1 - 1-dose 75+ series) 2036 Hepatitis B Vaccines Aged Out No long er eligible based on patient's age to complete this topic Procedures Procedure Name Priority Date/Time Associated Diagnosis Comments [place] ARTHROCENTESIS ASPIR&/INJ SMALL JT/BURSA W/O US Routine 05/15/2025 11:00 AM EDT Acquired hallux rigidus of right foot from Last 3 Months Results * [place] ARTHROCENTESIS ASPIR&/INJ SMALL JT/BURSA W/O US (05/15/2025 [...] to verify the correct patient, procedure, equipment, instructional support technician and site/side marked as required. Patient was prepped and draped in the usual sterile fashion. Davida Schmidt PA-C PROCEDURE/MINOR SURGICAL O RDERABLES Final Result from Last 3 Months Insurance [facility] Care Teams Bone Grinder Relationship Specialty Start Date End Date Paolo Mcmahon MD [address] [place] [address] Dr Costa, [place] [address] PCP - General Internal Medicine 06/13/24
--- OUTSIDE RECORDS SUMMARY | 2025-08-07 12:29 | XMS_ITS | Patient Health Record ---
Author Organization [facility] Address [address] [place] [address] Care Team Providers Care Doctor Of Nursing Practice Name Role Phone Paolo Mcmahon MD Primary Care Provider Ramana Miller [phone] Allergies Allergen (clinical drug ingredient) Drug/Non Drug [...] Problem Status W/U Status Risk Notes Problem Acquired hallux valgus (45081731) Hallux valgus (acquired), right foot (M20.11) Active confirmed Plan Of Treatment Pending Test Test Name Order Date X ray : Foot, right 3V 01/21/2018 Insurance Providers Payer Name Payer Address Payer Phone Subscriber Number Group Number Insured Name Patient Relationship to Insured Coverage Start Date Coverage End Date [facility] [address] [place] [id number] Lucy Carranza Self - patient is the insured Medical (General) History Medical History History ICD Code Headaches/Migraines asthma Back,Hip,and Knee pain Hiatal hernia Reflux ( GERD) Chicken pox Surgical History Surgery Date(Month/Year) arthroscopic knee surgery 11/2014 cyst removal 04/1998
--- OUTSIDE RECORDS SUMMARY | 2025-08-07 12:29 | XMS_ITS | Patient Health Record ---
Author Organization [facility] Address [address] [place] [address] Care Team Providers Care Installation Drafter Name Role Phone Paolo Mcmahon MD Primary Care Provider Rashi Greer [phone] Allergies No Known Allergies Reason For Referral No Information Medications Medication SIG (Take, Route, Frequency, Duration) Notes Start Date End Date Status Albuterol Sulfate Ac tive Suprep Bowel Prep 1 KIT Solution as directed Orally once; Duration: 1 dose 01/06/2012 Active Valsartan-hydroCHLOROthiaz iris 160-12.5 MG Tablet TAKE 1 TABLET BY MOUTH EVERY DAY Oral; Duration: 90 Active Flonase Allergy Relief 50 MCG/ACT Suspension 1 spray in each nostril Nasally Once a day; Duration: 30 day(s) 03/11/2022 Active Ventolin HFA 108 (90 Base) MCG/ACT Aerosol Solution 1 puff as needed Inhalation every 4 hrs 03/11/2022 Active Ibuprofen Active Immunizations Vaccine Route Administration Date Status Comme nts Influenza Unknown 07/15/2021 Administered Social History Social History Additional Details Category Social Info Options Details Miscellaneous: Marital status: Occupation: Accounts Payable at [employer] Section Notes: Nonsmoker; no significant al cohol Nonsmoker; no significant al cohol Problems Problem Type SNOMED Code ICD Code Onset Dates Problem Status W/U Status Risk Notes Problem Screening for malignant neoplasm of colon (161476258) Encounter for screening for malignant neoplasm of colon (Z12.11) Active confirmed Problem Pre-procedure evaluation check (222622367) Encounter for other preprocedural examination (Z01.818) Active confirmed Problem Diverticulosis of colon (791936704) Diverticulosis of colon (K57.30) Active confirmed Plan Of Treatment Future Test Test Name Order Date COLONOSCOPY 01/06/2012 COLONOSCOPY 03/11/2022 Insurance Providers Payer Name Payer Address Payer Phone Subscriber Number Group Number Insured Name Patient Relationship to Insured Coverage Start Date Coverage End Date [facility] [address] [facility] [place] [phone] [id number] АННА ARAUJO Self - patient is the insured Medical (General) History Medical History History ICD Code Asthma Denies IN,DM,CVA,renal disease HTN Negative colonoscopy in 01/2012 Surgical History Surgery Date(Month/Year) Breast cyst removed 1996 D & C 2021 Left knee surgery
--- OUTSIDE RECORDS SUMMARY | 2025-08-07 12:30 | XMS_ITS | Patient Health Record ---
Author Organization Paolo Mcmahon MD Address [address] [place] [phone] Care Team Providers Care Photographer Still Name Role Phone Paolo Mcmahon Primary Care Provider Allergies No Known Allergies Results Component Value Reference Range Notes Complete Blood Count Auto Di ff Reviewed date:07/16/2025 12:07:05 PM Interpretation: Performing Lab:[facility], [address] [place] [phone] Notes/Report: White Blood Count 6.6 4.8-10.8 X10*3/uL [...] 0.0-0.2 /100WBC Neutrophils Absolute Auto 3.7 2.0-8.3 x10*3/uL Imm Gran Abs Auto 0.02 0.00-0.03 X10*3/uL Lymphocytes Absolute Auto 2.2 1.2-4.9 X10*3/uL Monocytes Absolute Auto 0.5 0.1-1.2 X10*3/uL Eosinophils Absolute Auto 0.1 0.0-0.4 X10*3/uL Basophils Absolute Auto 0.0 0.0-0.2 X10*3/uL NRBC Abs Auto 0.000 0.0-0.012 X10*3/uL Comprehensive [place]. Panel Fa st Reviewed date:07/16/2025 05:38:27 PM Interpretation: Performing Lab:[facility], [address] [place] [phone] Notes/Report: Sodium 142 135-145 mmol/L Potassium 3.9 [...] Panel Reviewed date:07/16/2025 05:32:53 PM Interpretation: Performing Lab:[facility], [address] [place] [phone] Notes/Report: Triglycerides 109 <150 mg/dL Desirable Triglyceride: [...] Total Reviewed date:07/16/2025 05:34:40 PM Interpretation: Performing Lab:[facility], [address] [place] [phone] Notes/Report: Vitamin D 25-OH Total 19.6 >30 [...] t Reviewed date:07/16/2025 05:37:13 PM Interpretation: Performing Lab:[facility], [address] [place] [phone] Notes/Report: Urine, Clean Catch Color Urine Yellow Appearance Urine Clear PH 5.5 5.0-9.0 Glucose Urine UA Negative Negative mg/dL Urine Blood Moderate (2+) Negative Specific Lenore - Urine >= 1.030 1.005-1.025 Urine Protein Negative Neg-Trace mg/dL Urine Ketones Negative Negative mg/dL Nitrite Urine Negative Negative Leukocyte Esterase Urine Negative Negative RBC Urine 11-20 0-2 /HPF WBC Urine 0-5 0-5 /HPF Squamous Epithelial Cell Urine 0-2 0-2 /HPF Bacteria Urine None Seen None Seen Hyaline Casts Urine 0-2 0-2 /LPF US thyroid Reviewed date:09/18/2024 11:34:41 AM Interpretation: Performing Lab: Notes/Report: [address] [address] Ultrasound Report Signed Patient: Lucy Carranza MR#: [id number] [birth year] : 1960 Acct:[id number] Age/Sex: 64 / F ADM Date: 09/11/24 Loc: HO.US Attending Dr: Paolo Mcmahon MD Ordering Physician: Paolo Mcmahon MD Date of Service: 09/11/24 Procedure(s): US thyroid Accession Number(s): [id number] cc: Paolo Mcmahon MD EXAMINATION: US THYROID [...] 09/12/24 0749 DD/ 1432 TD/TT: 09/11/24 1442 Pharmaceutical Specialty Representative: [place] [address] Ultrasound Report Signed Patient: Alanis Carranza MR#: [id number] [birth year] : 1960 Acct:[id number] Age/Sex: 64 / F ADM Date: 09/11/24 Loc: HO.US Attending Dr: Paolo Mcmahon MD Ordering Physician: Paolo Mcmahon MD Date of Service: 09/11/24 Procedure(s): US thyroid Accession Number(s): [id number] cc: Paolo Mcmahon MD EXAMINATION: US THYROID [...] Margins: Smooth Echotexture: Hypoechoic Morphology: Solid Calcifications: Poss ible punctate calcifications. TIRADS: TR5: Highly suspicious. Nodule [...] Solid Calcifications: The TIRADS: TR5: Highly suspicious. ____ U S/US thyroid IMPRESSION: Multiple suspicious thyroid nodules are [...] by: Rashi Pradhan MD 09/12/2024 07:49 AM [facility] Dictated By: Rashi Pradhan MD Signed By: <Electronically signed by Rashi Pradhan MD in OV> 09/12/24 0749 DD/ 1432 TD/TT: 09/11/24 1442 Pharmaceutical Specialty Representative: Free T4 (Free Thyroxine) Reviewed date:09/29/2024 10:40:32 AM Interpretation: Performing Lab:[facility], [address] [place] [phone] Notes/Report: Free T4 (Free Thyroxine) 1.06 0.71-1.85 ng/dL Thyroid Stimulating Hormone Reviewed date:09/29/2024 10:40:23 AM Interpretation: Performing Lab:[facility], [address] [place] [phone] Notes/Report: Thyroid Stimulating Hormone 0.61 0.32-4.0 uIU/mL TSH 3rd Generation ([facility]) Pathology Reviewed date:11/16/2024 12:58:42 PM Interpretation: Performing Lab:[facility], [address] [place] [phone] Notes/Report: ---- Name: Lucy Carranza Age/Sex: 64/F : 1960 Unit#: [id number] Attend Dr: May Bolivar MD Re10/04/24 Status : [facility] REF Location: [facility] Disch: ---- SPEC : [id number] REC STATUS: CHEL WIGGINS NUM: [id number] GLORIA: 10/04/[address] [facility] [address]: May Bolivar MD ENTERED: 10/04/24- 48 SP TYPE: Cytology OT DR: Paolo Mcmahon MD ORDERED: Cell Block/ 2, Fine Ndl Asp/2 Addendum Addendum 1 Entered: 11/16/24-1029 Afirma Test Results (B): - AFIRMA GSC (genomi c sequencing sand slinger operator): Benign (risk of malignancy approximately 4%) See entire report in the Laboratory/Pathology section of the patient's EMR. A copy of the report has been sent to the ordering provider's office. Testing performed at [facility], [place], [place]; [facility]#[id number], #[id number] Addendum Signed (signature on file) Noé Willard MD 11/16/24 1029 ---- Diagnosis A. Thyroid, right superior/mid 1.3 cm nodule, fine needle aspiration: Benign ([place] category II). COMMENT (A): Satisfactory for evaluation; cellular specimen. Groups of follicular epithelial cells mos tly in a macrofollicular arrangement are readily seen; no cytologic atypia is present. R are colloid is present. The cell block is acellular and non- contributory. Taken together, the findings are consistent with a benign thyroid nodule. B. Thyroid, right inferior 2.9 cm nodule, fine needle aspiration: Atypical ([place] category III). COMMENT (B): Satisfactory for evaluation; paucicellular specimen. Occasional groups of follicular epithelia l cells in a mixed micro and macrofollicular arrangement are seen; some of the groups a re hyperchromatic and crowded. No colloid is present. The cell block is essentially acellular and non-contributory. Afirma testing will be addended. Clinical History Right superior/mid 1 .3 cm and right inferior 2.9 cm thyroid nodule FNA bx's CONTINUED ON NEXT PAGE ---- Name: Alanis Carranzalou Age/Sex: 64/F : 1960 Unit#: [id number] Attend Dr: May Bolivar MD Re10/04/24 Status : [facility] REF Location: [facility] Disch: ---- SPEC : [id number] RECD : 10/04/24 STATUS: CHEL WIGGINS NUM: [id number] GLORIA: 10/04/[address] [facility] [address]: May Bolivar MD ENTERED: 10/04/24 48 SP TYPE: Cytology OTHR DR: Paolo Mcmahon MD ORDERED: Cell Block/ 2, Fine Ndl Asp/2 Material Received A. Right superior/mi d 1.3 cm thyroid nodule FNA bx B. Right inferior 2. 9 cm thyroid nodule FNA bx Gross Description A.Received is 31 cc of clear light pink fluid from which a ThinPrep slide and very scant cell block A are prepared. B. Received is 31 cc of clear pink fluid from which a ThinPrep slide and very scant cell block B are prepared. This case was review ed intradepartmentally. Copies To: Paolo Mcmahon MD [facility] [address] [place] [address] [address] [place] [address] May Bolivar MD [facility] [address] [place] [id number] [email or web address] ---- Signed (signature on file) Noé Willard MD 10/06/24 0752 ---- END OF REPORT XR chest 2V Reviewed date:01/10/2025 03:56:52 PM Interpretation: Performing Lab: Notes/Report: [address] [address] XRay Report Signed Patient: Lucy Carranza MR#: [id number] [birth year] : 1960 Acct:[id number] Age/Sex: 64 / F ADM Date: 01/10/25 Loc: MARK Attending Dr: Paolo Mcmahon MD Ordering Physician: Paolo Mcmahon MD Date of Service: 01/10/25 Procedure(s): XR chest 2V Accession Number(s): [id number] cc: Paolo Mcmahon MD EXAMINATION: XR CHEST CLINICAL INFORMATION: PERSISTENT COUGH COMPARISON: August 03, 2016. TECHNIQUE: 2 views of the chest were obtained. FINDINGS: No consolidation, pleural effusion or pneumothorax. Cardiomediastinal silhouette size is normal. Multilevel thoracic spondylosis. Patient's large body habitus. XR/XR chest 2V IMPRESSION: No acute airspace disease. Electronically signed by: Kevin Delatorre MD 01/10/2025 07:40 AM EDT Dictated By: Kevin Whitney MD Signed By: <Electronically signed by Kevin Miller MD in OV> 01/10/25 0740 DD/ 07 TD/TT: 01/10/25 0707 Pharmaceutical Specialty Representative: [address] [address] XRay Report Signed Patient: Alanis Carranza MR#: [id number] [birth year] : 1960 Acct:[id number] Age/Sex: 64 / F ADM Date: 01/10/25 Loc: HO.XRAY Attending Dr: Paolo Mcmahon MD Ordering Physician: Paolo Mcmahon MD Date of Service: 01/10/25 Procedure(s): XR adam st 2V Accession Number(s): [id number] cc: Paolo Mcmahon MD EXAMINATION: XR CHEST CLINICAL INFORMATION: PERSISTENT COUGH COMPARISON: August 03, 2016. TECHNIQUE: 2 views of the chest were obtained. FINDINGS: No consolidation, pleural effusion or pneumothorax. Cardiomediastinal silhouette size is normal. Multilevel thoracic spondylosis. Patient's large body habitus. X R/XR chest 2V IMPRESSION: No acute airspace disease. Electronically daniele d by: Kevin Delatorre MD 01/10/2025 07:40 AM EDT RP Dictated By: Kevin Houston MD Signed By: <Electronically signed by Kevin Miller MD in OV> 01/10/25 0740 DD/ 0702 TD/TT: 01/10/25 0707 Pharmaceutical Specialty Representative: MM tomosynthesis screening B I Reviewed date:04/11/2025 12:33:01 PM Interpretation: Performing Lab: Notes/Report: [facility] [address] [place] [address] Mammography Report Signed Patient: Lucy Carranza MR#: [id number] [birth year] : 1960 Acct:[id number] Age/Sex: 65 / F ADM Date: 04/09/25 Loc: MAMMO Attending Dr: Paolo Mcmahon MD Ordering Physician: Paolo Mcmahon MD Results: 2Be nign Findings Date of Service: 04/09/25 Follow Up: 1 Year From Orig inal Mammogram Procedure(s): MM tomosynthesis screening BI Accession Number(s): [id number] cc: Paolo Mcmahon MD EXAMINATION: MM SCREENING DIGITAL BREAST TOMOSYNTHESIS, BILATERAL CLINICAL INFORMATION: Screening. Asymptomatic. COMPARISON: Comparison made to multiple prior, most recent March 28, 2024, and most remote February 26, 2020. TECHNIQUE: Digital breast tomosynthesis is performed in both the craniocaudal and mediolateral oblique views along with computer-aided detection (CAD). FINDINGS: BREAST COMPOSITION: The breasts are heterogeneously dense, which may obscure small masses (ACR BI-RADS breast composition Category c). RIGHT BREAST: No significant masses, suspicious calcifications or other abnormalities are seen. LEFT BREAST: Remote history of cyst excision. No significant masses, suspicious calcifications or other abnormalities are seen. MM/MM tomosynthesis screening BI IMPRESSION: BILATERAL BREASTS: Benign, no mammographic evidence of malignancy. Normal interval follow-up is recommended in 12 months. ASSESSMENT: BI-RADS 2 - Benign Findings RECOMMENDATION: Routine annual mammography screening. FOLLOW-UP: 1 year F/U This examination should not preclude the clinical evaluation of a suspicious palpable abnormality. This patient's information was entered into a reminder system with a target due date for their next mammogram. Electronically signed by: Altaf Che MD 04/10/2025 09:43 PM EDT RP Dictated By: Altaf Che MD Signed By: <Electronically signed by Altaf Che MD in OV> 04/10/253 DD/ 1235 TD/TT: 04/09/25 1243 Pharmaceutical Specialty Representative: [facility] [address] [place] [address] Mammography Report Signed Patient: Alanis Carranza MR#: [id number] [birth year] : 1960 Acct:[id number] Age/Sex: 65 / F ADM Date: 04/09/25 Loc: HO.MAMMO Attending Dr: Paolo Mcmahon MD Ordering Physician: Paolo Mcmahon MD Results: 2Be nign Findings Date of Service: 04/09/25 Follow Up: 1 Year From Orig inal Mammogram Procedure(s): MM tomosynthesis screening BI Accession Number(s): [id number] cc: Paolo Mcmahon MD EXAMINATION: MM SCREENING DIGITAL BREAST TOMOSYNTHESIS, BILATERAL CLINICAL INFORMATION: Screening. Asymptomatic. COMPARISON: Comparis on made to multiple prior, most recent March 28, 2024, and most remot e February 26, 2020. TECHNIQUE: Digital breast tomosynthesis is performed in both the craniocaudal and mediolateral oblique views along with computer-aided detection (CAD). FINDINGS: BREAST COMPOSITION: The breasts are heterogeneously dense, which may obscure small masses (ACR BI-RADS breast composition Category c). RIGHT BREAST: No significant masses, suspicious calcifications or other abnormalities are seen. LEFT BREAST: Remote history of cyst excision. No significant masses, suspicious calcifications or other abnormalities are seen. M M/MM tomosynthesis screening BI IMPRESSION: BILATERAL BREASTS: Benign, no mammographic evidence of malignancy. Normal interval follow-up is recommended in 12 months. ASSESSMENT: BI-RADS 2 - Benign Findings RECOMMENDATION: Routine annual mammography screening. FOLLOW-UP: 1 year F/U This examination khushbu uld not preclude the clinical evaluation of a suspicious palpable abnormality. This patient's information was entered into a reminder system with a target due date for their next mammogram. Electronically daniele d by: Altaf Che MD 04/10/2025 09:43 PM EDT RP Dictated By: Altaf Che MD Signed By: <Electronically signed by Altaf Che MD in OV> 04/10/25 2143 DD/ 1235 TD/TT: 04/09/25 1243 Pharmaceutical Specialty Representative: Reason For Referral Reason thyroid nodule Diagnosis 1 Thyroid nodule (E04. 1) Referral Organization Paolo Mcmahon MD Referring Provider First Name Paolo Referring Provider Last Name Salome Referring Provider Speciality Internal M edicine Referred Provider Rashi Mendes Referred Provider Specialty Endocrinolog y General Notes Fidelia Miranda 0 09/18/2024 11:34:08 AM > info faxed to office Referral Priority Routine Referral Appointment Date 09/29/2024 Medications Medication SIG (Take, Route, Frequency, Duration) Notes Start Date End Date Status Hydrocod Gregg-Chlorphe Gregg ER 10-8 MG/5ML 5 mL as needed Orally every 12 hrs for 30 days Partial Fill upon Patient Request 01/09/2025 Active Fluticasone Propionate 50 MCG/ACT SPRAY 2 SPRAYS INTO EACH NOSTRIL ONCE DAILY for 90 Active Albuterol Sulfate (2.5 MG/3ML) 0.083% as directed Inhalation every 6 hrs 08/30/2017 Active Omeprazole 20 MG TAKE 1 CAPSULE BY MOUTH ONCE A DAY 30 MINUTES TO 1 HOUR BEFORE MORNING MEAL for 30 Active Ibuprofen 800 MG 1 tablet Orally Three times a day for 90 days Active Triamcinolone Acetonide 0.5 % 1 application to affected area Externally Twice a day for 30 days 11/01/2018 Active valACYclovir HCl 1 GM TAKE 1 [...] 1 TABLET BY MOUTH EVERY DAY Active Immunizations Vaccine Route Administration Date Status Comme nts Flu Vaccine Unknown 06/08/2012 Administered Flu Vaccine IM Intramuscular 06/20/2013 Administered [facility] Flu Vaccine IM Intramuscular 06/07/2014 Administered [facility] PPSV23 (Pnemovax) Unknown 06/07/2014 Administered given at work Flu Vaccine IM Intramuscular 05/29/2015 Administered [facility] Flu Vaccine ID Intradermal 05/06/2016 Administered [facility] d - Afluria 0.5 ML Flu Vaccine IM Intramuscular 05/06/2017 Administered pt wa s given the vaccine at [facility] on [facility]. Fluarix Quadrivalent IM Intramuscular 05/11/2018 Administe red pt was given the vaccine at [facility] in [place]. TDaP IM Intramuscular 07/16/2018 Administered pt was given the vaccine at [facility]. Tetanus Unknown 07/16/2018 Administered Shingrix IM [...] 06/22/2022 Administered Fluarix Quadrivalent IM Intramuscular 05/13/2023 Adminamauri valdez Fluarix Quadrivalent - 150 IM Intramuscular 06/01/2024 [...] Problem Status W/U Status Risk Notes Problem 826769883 Thyroid nodule (E04.1) Active confirm ed Problem 27189237 Vitamin D defici ency (E55.9) Active confirmed Problem 72242713 Irritable bowel syndrome without diarrhea (K58.9) Active confirmed Problem 70670096 Essential hypert ension (I10) Active confirmed Problem 780572040 Mild intermitten t asthma without complication (J45.20) Active confirmed Problem 474750809 Rosacea (L71.9) Active confirmed Problem 374951921 History of hemat uria (Z87.448) Active confirmed Problem 543309908 Cervical disc di sease (M50.90) Active confirmed Problem 98649422 Intrinsic eczema (L20.84) Active confirmed Problem 32063636 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) Active confirm ed Problem 915920116 Panic attack (F41.0) Active confirmed Problem 275861128 Pure hypercholesterolemia (E78.00) Active confirmed Problem 46400870 Non-seasonal all ergic rhinitis due to pollen (J30.1) Active confirmed Problem 88061152 Abnormality of t ongue (Q38.3) Active confirmed Problem 022119752 Bilateral caroti d artery disease, 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) Active confirmed Vital Signs Blood pressure diastolic 78 mm Hg 01/29/2025 ru ght is up 4 pounds since 01-09-25 Height 65 in 08/06/2025 weight is 175 a t home BP not taken no temp Blood pressure systolic 130 mm Hg 01/29/2025 weig ht is up 4 pounds since 01-09-25 Weight 175 lbs 08/06/2025 weight is 175 a t home BP not taken no temp BMI 29.12 kg/m2 08/06/2025 weight is 175 a t home BP not taken no temp Encounters Encounter Location Date Provider Diagnosis Paolo Mcmahon MD [address] [place] [id number] 07/16/2025 Paolo Mcmahon Blood tests for rout ine general physical examination Z00.00 ; Essential hypertension I10 ; Vitamin D deficiency E55.9 and Pure hypercholesterolemia E78.00 Paolo Mcmahon MD [address] [place] [id number] 08/28/2024 Paolo Mcmahon Thyroid nodule E04.1 and Bilateral carotid artery disease, unspecified type I77.9 Paolo Mcmahon MD [address] [place] [id number] 12/21/2024 Paolo Mcmahon Bronchitis J40 Paolo Mcmahon MD [address] [place] [id number] 01/09/2025 Paolo Mcmahon Hiatal hernia K44.9 and Persistent cough R05.3 Paolo Mcmahon MD [address] [place] [id number] 01/29/2025 Paolo Mcmahon Essential hypertensi on I10 and Mild intermittent asthma without complication J45.20 Paolo Mcmahon MD [address] [place] [address] [id number] 08/06/2025 Paolo Mcmahon URI (upper respirato ry infection) J06.9 Paolo Mcmahon MD [address] [place] [id number] 01/09/2025 Paolo Mcmahon MD [address] [address] [place] [id number] 11/06/2024 Paolo Mcmahon Mild intermittent as thma without complication J45.20 Assessments Encounter Date Diagnosis (ICD Code) Assessment Notes Treatment Notes Treatment Clinical Notes Section Notes 07/16/2025 Blood tests for rout ine general physical examination (ICD-10 - Z00.00) 08/28/2024 Thyroid nodule (ICD- 10 - E04.1) [...] follow up of 2 years with repeat 12/21/2024 Bronchitis (ICD-10 - J40) patient verbalized understanding of medication and directions for use 01/09/2025 Hiatal hernia (ICD-1 0 - K44.9) patient verbalized understanding of medicationand directions for use 01/09/2025 Persistent cough (ICD-10 - R05.3) patient verbalized understanding of the medication and directions for use, pending diagnostic testing/ order faxed to [facility] Patient Reg 01/29/2025 Essential hypertensi on (ICD-10 - I10) doing well 08/06/2025 URI (upper respirato ry infection) (ICD-10 - J06.9) will just observe unless she gets worse 11/06/2024 Mild intermittent asthma without complication (ICD-10 - J45.20) 07/16/2025 Essential hypertensi on (ICD-10 - I10) 01/29/2025 Mild intermittent asthma without complication (ICD-10 - J45.20) doing well.. took omeprazole and got better. will try stopping it if she doesn't need 07/16/2025 Vitamin D deficiency (ICD-10 - E55.9) 07/16/2025 Pure hypercholesterolemia (ICD-10 - E78.00) Plan Of Treatment Pending Test Test Name Order Date Electrocardiogram (EKG) 02/13/2016 Electrocardiogram (EKG) 03/11/2017 XR CHEST 2 VIEW PA & LAT 01/09/2025 BONE DENSITY DEXA 02/28/2021 US CAROTID BILATERAL DOPPLER 07/24/2024 MR breast BI wo/w con 04/22/2023 MR breast BI wo con 04/13/2023 US thyroid 08/28/2024 Next Appt Details Provider Name:Paolo Burt ier, 08/31/2025 02:30:00 PM, [address], [place], [place], [id number], Insurance Providers Payer Name Payer Address Payer Phone Subscriber Number Group Number Insured Name Patient Relationship to Insured Coverage Start Date Coverage End Date [address] [place] [phone] [id number] Lucy Carranza Self - patient is the insured Medical (General) History Medical History History ICD Code Cysto - 10/17/[address] and cysto 05/05 colonoscopy 2011 due in 10 years: Colono scopy 05/04/22 10yr repeat Surgical History Surgery Date(Month/Year) Excision of Lesion, LT Upper back - Dr. Yandy Redd 01/2019
== END 2025-08-07 10:32 | disposition home or self-care (01) ==
PROVIDERS: PCP Internal Medicine; Visit Provider Physician Assistant
DX: L02.91 Cutaneous abscess, unspecified (principal)

== ENCOUNTER 2025-08-10 10:54 | Outpatient (AMB) | payer OTHER, SELFPAY ==
--- OUTSIDE RECORDS SUMMARY | 2024-07-24 05:30 | XMS_ITS ---
Author Organization Paolo Mcmahon MD Address [address] [place] [phone] Care Team Providers Care Professor Of Physics Name Role Phone Paolo Mcmahon Primary Care Provider [phone] Allergies No Known Allergies REASON FOR VISIT annual visit, Patient did not have labs will be done 07-25-24 here in the office Medications Medication SIG (Take, Route, Frequency, Duration) Notes Start Date End Date Status Triamcinolone Acetonide 0.5 % 1 application to affected area Externally Twice a day for 30 days 11/01/2018 Active Fluticasone Propionate 50 MCG/ACT SPRAY 2 SPRAYS IN EACH NOSTRIL ONCE A DAY Active Ventolin HFA * 108 (90 Base) MCG/ACT 2 puffs as needed Inhalation every 4 hrs for 90 days Not-Taking Albuterol Sulfate HFA 108 (90 Base) MCG/ACT 1 puff as needed Inhalation every 4 hrs Active Albuterol Sulfate (2.5 MG/3ML) 0.083% as directed Inhalation every 6 hrs 08/30/2017 Active LORazepam 0.5 MG 1 tablet at bedtime as needed Orally Twice a day 12/02/2023 Active Valtrex 1 GM 1 tablet Orally ever y 24 hrs for 30 days Active Ibuprofen 800 MG 1 tablet Orally Thre e times a day for 90 days Active Wixela Inhub 250-50 MCG/ACT INHALE 1 PUFF INTO THE LUNGS TWICE A DAY FOR 90 DAYS Active Valsartan-hydroCHLOROthia zide 160-12.5 MG TAKE 1 TABLET BY MOUTH EVERY DAY FOR 90 DAYS Active Social History Tobacco Use: Social History Observation Description Date Details (start date - stop date) Never Smoker NA - NA Tobacco Use/Smoking Question Answer Notes Patient is a nonsmoker Additional Findings: Tobacco Non-User Cu rrent non-smoker, currently using no form of tobacco Alcohol Screen Question Answer Notes Did you have a drink contain ing alcohol in the past year? Yes How often did you have a dri nk containing alcohol in the past year? Monthly or less (1 point) How many drinks did you have on a typical day when you were drinking in the past year? 1 or 2 drinks (0 point) How often did you have 6 or more drinks on one occasion in the past year? Never (0 point) Points 1 Interpretation Negative Vital Signs Blood pressure systolic 128 mm Hg 07/24/20 24 Blood pressure diastolic 78 mm Hg 024 Height 65 in 07/24/2024 Weight 180 lbs 07/24/2024 BMI 29.95 kg/m2 07/24/2024 Encounters Encounter Location Date Provider Diagnosis Paolo Mcmahon MD [address] [place] [address] [address] [place], [place] [phone] 07/24/2024 Paolo Mcmahon Essential hypertensi on I10 ; Annual physical exam Z00.00 ; Vitamin D deficiency E55.9 ; Pure hypercholesterolemia E78.00 ; Family history of carotid endarterectomy Z82.49 ; Mild intermittent asthma without complication J45.20 and Panic attack F41.0 Assessments Encounter Date Diagnosis (ICD Code) Assessment Notes Treatment Notes Treatment Clinical Notes Section Notes 07/24/2024 Essential hypertensi on (ICD-10 - I10) with good readings, will continue curent regiment and will contiue to monitor 07/24/2024 Annual physical exam (ICD-10 - Z00.00) labs reviewed and discussed with patient 07/24/2024 Vitamin D deficiency (ICD-10 - E55.9) 07/24/2024 Pure hypercholesterolemia (ICD-10 - E78.00) has not had blood work yet,pending labs 07/24/2024 Family history of carotid endarterectomy (ICD-10 - Z82.49) 07/24/2024 Mild intermittent as thma without complication (ICD-10 - J45.20) stable, will cntinue current regiment 07/24/2024 Panic attack (ICD-10 - F41.0) doing well, will continue current regiment Plan Of Treatment Medication Medication Name Sig Start Date Stop Date Notes Fluticasone Propionate 50 MCG/ACT SPRAY 2 SPRAYS IN EACH NOSTRIL ONCE A DAY Albuterol Sulfate HFA 108 (9 0 Base) MCG/ACT 1 puff as needed Inhalation every 4 hrs Albuterol Sulfate (2.5 MG/3M L) 0.083% as directed Inhalation every 6 hrs 08/30/2017 LORazepam 0.5 MG 1 tablet at bedtime as needed Orally Twice a day 12/02/2023 Wixela Inhub 250-50 MCG/ACT INHALE 1 PUF F INTO THE LUNGS TWICE A DAY FOR 90 DAYS Valsartan-hydroCHLOROthiazid e 160-12.5 MG TAKE 1 TABLET BY MOUTH EVERY DAY FOR 90 DAYS Treatment Notes Assessment Notes Essential hypertension with good reading s, will continue curent regiment and will contiue to monitor Annual physical exam labs reviewed and d iscussed with patient Pure hypercholesterolemia has not had bl ood work yet,pending labs Mild intermittent asthma without complic ation stable, will cntinue current regiment Panic attack doing well, will con tinue current regiment Pending Test Test Name Order Date US CAROTID BILATERAL DOPPLER 07/24/2024 Next Appt Details Follow Up: 6 Months, Reason: Provider Name:Paolo Burt ier, 09/03/2025 09:30:00 AM, [address], [address], [place], [place], [phone], Progress Notes * Lucy ARAUJO PDOB: [birth year] (64 yo F)Acc No.[id number]:07/24/2024 Progress Notes Patient: Lucy Red Provider: Catrina Mcmahon MD :[id number] A ge:64 Y S ex:Female Date:07/24/2024 Address:[address] [place] [id number] Subjective: * Chief Complaints: * A nnual visitPatient did not have labs will be done 07-25-24 here in the office * HPI: D epression Screening: PHQ-9 L ittle interest or pleasure in doing things N ot at all, F eeling down, depressed, or hopeless N ot at all, T rouble falling or staying asleep, or sleeping too much N ot at all, F eeling tired or having little energy N ot at all, P oor appetite or overeating N ot at all, F eeling bad about yourself or that you are a failure, or have let yourself or your family down N ot at all, T rouble concentrating on things, such as reading the newspaper or watching television N ot at all, M oving or speaking so slowly that other people could have noticed; or the opposite, being so fidgety or restless that you have been moving around a lot more than usual N ot at all, T houghts that you would be better off or of hurting yourself in some way N ot at all, T otal Score 0 . I nterpretation and Intervention D epression Screening Findings N egative, F ollow-Up for Depression : review of PHQ-9 found negative result, no follow-up needed. C ommunication Needs: Communication Needs D oes the patient have a hearing impairment N o, D oes the patient have a vision impairment? Y es, I f yes, what is the vision impairment? G lasses, D oes the patient have a cognition impairment? N o. F all Risk: History H ave you had any falls with injury in the past year? N o, H ave you had two or more falls in the past year? N o. S MARIBEL Questions: SDOH Questions I n the past year have you been worried about losing housing? N o, I n the past year have you or any family members you live with been unable to get any of the following when it was really needed? Check all that apply: N one. S ymptom(s): patient is a 64 yo female here for annual visit , follow up of chronic issues, here for yearly physical. * ROS: G eneral/Constitutional: Patient denies f atigue , headache. C hange in appetite?denies. C hills d enies. F ever d enies. O phthalmologic: Blurred vision d enies. D ischarge d enies. P ain d enies. E NT: Patient denies d ecreased sense of smell , any loss of taste , sore throat. D ecreased hearing d enies. S ore throat d enies. S wollen glands d enies. E ndocrine: Cold intolerance d enies. E xcessive thirst d enies. H eat intolerance d enies. W eight loss d enies. R espiratory: Cough d enies. S hortness of breath at rest d enies. S hortness of breath with exertion d enies. W heezing d enies. C ardiovascular: Chest pain at rest d enies. C hest pain with exertion?denies. I rregular heartbeat d enies. S hortness of breath d enies. ? G astrointestinal: Abdominal pain d enies. C hange in bowel habits d enies. D iarrhea d enies. N ausea d enies. R ectal bleeding d enies. V omiting d enies . G enitourinary: Blood in urine d enies. D ifficulty urinating d enies. F requent urination d enies. U rinary incontinence D enies. M usculoskeletal: Patient denies m uscle aches. P ainful joints d enies. W eakness d enies. P eripheral Vascular: Patient denies r ed and blue toes. S kin: Dry skin d enies. I tching d enies. D enies?Mole(s), changes in moles, new moles or any lesions of concern. D enies P hotosensitivity. R jose d enies. N eurologic: Dizziness d enies. F ainting d enies. H eadache?denies. * Medical History: * Surgical History: * Hospitalization/Major Diagno stic Procedure: * Family History: F ather: , hypertension, renal cell cancer. M other: , breast cancer, lung cancer. 2 brother(s) . . mother cancer , Denies mental health/substance abuse family history, Denies mental health/substance abuse family history, Denies mental health/substance abuse family history, Denies mental health/substance abuse family history. * Social History: T obacco Use: T obacco Use/Smoking P atient is a n onsmoker, A dditional Findings: Tobacco Non-User C urrent non-smoker, currently using no form of tobacco. D rugs/Alcohol: A lcohol Screen D id you have a drink containing alcohol in the past year? Y es, H ow often did you have a drink containing alcohol in the past year? M onthly or less (1 point), H ow many drinks did you have on a typical day when you were drinking in the past year? 1 or 2 drinks (0 point), H ow often did you have 6 or more drinks on one occasion in the past year? N ever (0 point), P oints 1 , I nterpretation N egative. M iscellaneous: C affeine: yes, frequency:, 1-2 cups per day. no Children. Community involvements: yes. no Exercise. Home smoke detector use: yes. Housing: owning. Living with: spouse. Marital status: . Occupation: works full-time. Pets: dog x1. Travel outside of the [place]: yes, [place]. * Medications: T akingFluticasone Propionate 50 MCG/ACT Suspension SPRAY 2 SPRAYS IN EACH NOSTRIL ONCE A DAY Triamcinolone Acetonide 0.5 % Cream 1 application to affected area Externally Twice a dayLORazepam 0.5 MG Tablet 1 tablet at bedtime as needed Orally Twice a dayValsartan-hydroCHLOROthiazide 160-12.5 MG Tablet TAKE 1 TABLET BY MOUTH EVERY DAY FOR 90 DAYS Wixela Inhub 250-50 MCG/ACT Aerosol Powder Breath Activated INHALE 1 PUFF INTO THE LUNGS TWICE A DAY FOR 90 DAYS Albuterol Sulfate (2.5 MG/3ML) 0.083% Nebulization Solution as directed Inhalation every 6 hrsAlbuterol Sulfate HFA 108 (90 Base) MCG/ACT Aerosol Solution 1 puff as needed Inhalation every 4 hrsIbuprofen 800 MG Tablet 1 tablet Orally Three times a dayValtrex 1 GM Tablet 1 tablet Orally every 24 hrsTaking Fluticasone Propionate 50 MCG/ACT Suspension SPRAY 2 SPRAYS IN EACH NOSTRIL ONCE A DAY Taking Triamcinolone Acetonide 0.5 % Cream 1 application to affected area Externally Twice a dayTaking LORazepam 0.5 MG Tablet 1 tablet at bedtime as needed Orally Twice a dayTaking Valsartan-hydroCHLOROthiazide 160- 12.5 MG Tablet TAKE 1 TABLET BY MOUTH EVERY DAY FOR 90 DAYS Taking Wixela Inhub 250-50 MCG/ACT Aerosol Powder Breath Activated INHALE 1 PUFF INTO THE LUNGS TWICE A DAY FOR 90 DAYS Taking Albuterol Sulfate (2.5 MG/3ML) 0.083% Nebulization Solution as directed Inhalation every 6 hrsTaking Albuterol Sulfate HFA 108 (90 Base) MCG/ACT Aerosol Solution 1 puff as needed Inhalation every 4 hrsTaking Ibuprofen 800 MG Tablet 1 tablet Orally Three times a dayTaking Valtrex 1 GM Tablet 1 tablet Orally every 24 hrsNot-Taking/PRNVentolin HFA * 108 (90 Base) MCG/ACT Aerosol Solution 2 puffs as needed Inhalation every 4 hrsMedication List reviewed and reconciled with the patientNot-Taking/PRN Ventolin HFA * 108 (90 Base) MCG/ACT Aerosol Solution 2 puffs as needed Inhalation every 4 hrsMedication List reviewed and reconciled with the patient * Allergies: N .K.D.A.yes[Allergies Verified] Objective: * Vitals: H t: 65, Wt:180, BMI:29.95, BP:128/78. * Examination: G eneral Examination: GENERAL APPEARANCE: w ell developed, well nourished, in no acute distress. HEAD: n ormocephalic, atraumatic. EYES: p upils equal, round, reactive to light and accommodation, sclera non-icteric. EARS: n ormal. ORAL CAVITY: m ucosa moist. THROAT: c lear. NECK/THYROID: n sonny supple, full range of motion, no cervical lymphadenopathy, no bruits. SKIN: w arm and dry, no suspicious lesions. HEART: r egular rate and rhythm, S1, S2 normal, no murmurs.? LUNGS: c lear to auscultation bilaterally. BREASTS: d one by appointment setter. ABDOMEN: s oft, nontender, nondistended, bowel sounds present, normal, no organomegaly , no masses palpable. RECTAL EXAM: d one by appointment setter. FEMALE GENITOURINARY: d one by appointment setter. EXTREMITIES: n o clubbing, cyanosis, or edema. NEUROLOGIC: n onfocal, motor strength normal upper and lower extremities, sensory exam intact. Assessment: * Assessment: 1. A nnual physical exam - Z00.00 (Primary) 2 . E ssential hypertension - I10 3 .?Vitamin D deficiency - E55.9 4 . P ure hypercholesterolemia - E78.00 5 . F amily history of carotid endarterectomy - Z82.49 6 . M ild intermittent asthma without complication - J45.20 7 . P anic attack - F41.0 Plan: * Treatment: 2. E ssential hypertension Continue Valsartan-hydroCHLOROthiazide Tablet, 160-12.5 MG, TAKE 1 TABLET BY MOUTH EVERY DAY FOR 90 DAYS. Notes: with good readings, will continue curent regiment and will contiue to monitor 3. P ure hypercholesterolemia Notes: has not had blood work yet,pending labs 4. F amily history of carotid endarterectomy I maging: US CAROTID BILATERAL DOPPLER 5. M ild intermittent asthma without complication Continue Fluticasone Propionate Suspension, 50 MCG/ACT, SPRAY 2 SPRAYS IN EACH NOSTRIL ONCE A DAY;?Continue Wixela Inhub Aerosol Powder Breath Activated, 250-50 MCG/ACT, INHALE 1 PUFF INTO THE LUNGS TWICE A DAY FOR 90 DAYS; C ontinue Albuterol Sulfate Nebulization Solution, (2.5 MG/3ML) 0.083%, as directed, Inhalation, every 6 hrs; C ontinue Albuterol Sulfate HFA Aerosol Solution, 108 (90 Base) MCG/ACT, 1 puff as needed, Inhalation, every 4 hrs. Notes: stable, will cntinue current regiment 6. P anic attack Continue LORazepam Tablet, 0.5 MG, 1 tablet at bedtime as needed, Orally, Twice a day. Notes: doing well, will continue current regiment * Procedure Codes: * Preventive Medicine: Counseling: C are goal follow-up plan: C ounseling for abnormal BMI provided?Yes, A carlos Normal BMI Follow-up Catrina somers encouragement to exercise. * Follow Up: 6 Months * * Sign off status: Completed true * Provider: Catrina Mcmahon MD Date: 09/24/2023 Generated for Tali childs/Judy/Wilfred on: 10/11/2024 12:45 PM EST History and Physical Notes * HPI (History of Present Illness) Category Sub-Category Detail Notes Category Not es Symptom(s) patient is a 64 yo female here for annual visit , follow up of chronic issues, here for yearly physical Depression Screening PHQ-9 Little inte rest or pleasure in doing things: Not at all Feeling down, depressed, or hopeless: No t at all Trouble falling or staying asleep, or sl eeping too much: Not at all Feeling tired or having little energy: N ot at all Poor appetite or overeating: Not at all Feeling bad about yourself o r that you are a failure, or have let yourself or your family down: Not at all Trouble concentrating on thi ngs, such as reading the newspaper or watching television: Not at all Moving or speaking so slowly that other people could have noticed; or the opposite, being so fidgety or restless that you have been moving around a lot more than usual: Not at all Thoughts that you would be b summer off or of hurting yourself in some way: Not at all Total Score: 0 Interpretation and Intervention Depression Marisela oviedo Findings: Negative Follow-Up for Depression: : review of PH Q-9 found negative result, no follow-up needed SDOH Questions SDOH Questions In the past year have you been worried about losing housing?: No In the past year have you or any family members you live with been unable to get any of the following when it was really needed? Check all that apply:: None Fall Risk History Have you had any falls with injury i n the past year?: No Have you had two or more falls in the year?: No Communication Needs Communication Needs Does the patient have a hearing impairment: No Does the patient have a vision impairmen t?: Yes If yes, what is the vision impairment?: Glasses Does the patient have a cognition impair ment?: No Examination Category Sub-Category Detail Notes Category Not es General Examination GENERAL APPEARANCE: well dev eloped, well nourished, in no acute distress HEAD: normocephalic, atrau matic EYES: pupils equal, round, reactive to light and accommodation, sclera non-icteric EARS: normal THROAT: clear NECK/THYROID: neck supple, full ra nge of motion, no cervical lymphadenopathy, no bruits HEART: regular rate and rhy thm, S1, S2 normal, no murmurs LUNGS: clear to auscultatio n bilaterally ABDOMEN: soft, nontender, non distended, bowel sounds present, normal, no organomegaly , no masses palpable NEUROLOGIC: nonfocal, motor stre ngth normal upper and lower extremities, sensory exam intact SKIN: warm and dry, no shelbi picious lesions EXTREMITIES: no clubbing, cyanosi s, or edema BREASTS: done by appointment setter RECTAL EXAM: done by appointment setter FEMALE GENITOURINARY: done by appointment setter ORAL CAVITY: mucosa moist
--- OUTSIDE RECORDS SUMMARY | 2024-07-25 02:45 | XMS_ITS ---
Author Organization Paolo Mcmahon MD Address [address] [place] [phone] Care Team Providers Care Change Coordinator Name Role Phone Paolo Mcmahon Primary Care Provider [phone] Results Component Value Reference Range Notes Complete Blood Count Auto Di ff Reviewed date:07/25/2024 12:42:32 PM Interpretation: Performing Lab:[facility], [address] [place] [phone] Notes/Report: White Blood Count 7.8 4.8-10.8 X10*3/uL Red Blood Count 4.20 4.20-5.50 X10*6/uL Hemoglobin 12.8 12.0-16.0 g/dl Hematocrit 38.1 37.0-47.0 % Mean Corpuscular Volume 90.7 80.0-98.0 fL Mean Corpuscular Hemoglobin 30.5 27.0-33.0 pg Mean Corpuscular HGB Conc 33.6 31.0-35.0 g/dl Red Cell Distribution Width 12.3 11.0-16.0 % Platelet Count 355 160-400 X10*3/uL Mean Platelet Volume 9.6 9.4-12.3 fL Neutrophils Percent Auto 59.7 45-73 % Imm Gran Pct Auto 0.3 0.0-0.4 % Lymphocytes Percent Auto 29.4 20-40 % Monocytes Percent Auto 8.9 2-11 % Eosinophils Percent Auto 1.3 0-4 % Basophils Percent Auto 0.4 0-2 % NRBC Pct Auto 0.0 0.0-0.2 /100WBC Neutrophils Absolute Auto 4.7 2.0-8.3 x10*3/u L Imm Gran Abs Auto 0.02 0.00-0.03 X10*3/uL Lymphocytes Absolute Auto 2.3 1.2-4.9 X10*3/u L Monocytes Absolute Auto 0.7 0.1-1.2 X10*3/uL Eosinophils Absolute Auto 0.1 0.0-0.4 X10*3/u L Basophils Absolute Auto 0.0 0.0-0.2 X10*3/uL NRBC Abs Auto 0.000 0.0-0.012 X10*3/uL Comprehensive [place]. Panel Fa st Reviewed date:07/25/2024 05:08:37 PM Interpretation: Performing Lab:[facility], [address] [place] [address], [place] [phone] Notes/Report: Sodium 139 135-145 mmol/L Potassium 3.6 3.3-5.1 mmol/L Chloride 103 96-108 mmol/L Carbon Dioxide 29 22-29 mmol/L Anion Gap 11 12-20 Blood Urea Nitrogen 17 9-16 mg/dL Creatinine 0.79 0.5-1.4 mg/dL Estimated Glomerular Filt Rate > 60 Chronic Kidney Disease: Estimated GFR < 60 mL/min/1.73m2 Severe Kidney Disease: Estimated GFR < 15 mL/min/1.73m2 Glucose Fasting 79 60-99 mg/dL Calcium 9.7 8.4-10.2 mg/dL Bilirubin Total 0.7 0.0-1.0 mg/dL Aspartate Amino Transferase 30 5-31 U/L Alanine Aminotransferase 30 0-31 U/L Total Protein 7.5 6.5-8.0 g/dL Albumin Level 4.2 3.5-5.0 g/dL Alkaline Phosphatase 99 39-117 U/L Lipid Panel Reviewed date:07/25/2024 01:24:48 PM Interpretation: Performing Lab:[facility], [address] [place] [phone] Notes/Report: Triglycerides 103 <150 mg/dL Desirable Triglyceride: less than 150 mg/dL Borderline High Triglyceride 150-199 mg/dL High Triglyceride: 200-499 mg/dL Very High Triglyceride: greater than or equal to 5OO mg/dL Cholesterol 244 <200 mg/dL Desirable Cholesterol: less than 200 mg/dL Borderline High Cholesterol: 200-239 mg/dL High Cholesterol: greater than 239 mg/dL LDL Cholesterol Calculated 151 <100 mg/dL Desirable LDL: less than 100 mg/dL Near Optimal/Above Optimal LDL: 110-129 mg/dL Borderline High LDL: 130-159 mg/dL High LDL: 160-189 mg/dL Very High LDL: greater than or equal to 190 mg/dL HDL Cholesterol 73 >40 mg/dL Desirable HDL: greater than 40 mg/dL Note: This HDL assay may give artificially low results in patients with liver disease. Vitamin D 25-OH Total Reviewed date:07/25/2024 01:24:15 PM Interpretation: Performing Lab:[facility], [address] [place] [phone] Notes/Report: Vitamin D 25-OH Total 54.0 >30 ng/mL Health Based Reference Values* < 20 ng/mL Deficient 20-30 ng/mL Insufficient > 30 ng/mL Sufficient *Ebonie MORRISSEY. N Engl J Med. 2007;357:266-280 Care must be taken in interpreting Vitamin D results from different laboratories and methodologies. Published data demonstrated that results from patients undergoing hemodialysis may show a negative bias when tested with various automated 25-OH vitamin D assays when compared to LC-MS/MS. When testing samples from patients whose predominant form of Vitamin D is Vitamin D2, such as patients receiving Vitamin D2 supplementation, results that are subtherapeutic should be confirmed with another method such as LC-MS/MS. UA ClnCatch+Micro w/rflx Cul t Reviewed date:07/25/2024 05:10:32 PM Interpretation: Performing Lab:[facility], [address] [place] [phone] Notes/Report: Urine, Clean Catch Color Urine Yellow Appearance Urine Clear PH 5.5 5.0-9.0 Glucose Urine UA Negative Negative mg/dL Urine Blood Moderate (2+) Negative Specific [place] - Urine 1.025 1.005-1.025 Urine Protein Negative Neg-Trace mg/dL Urine Ketones Negative Negative mg/dL Nitrite Urine Negative Negative Leukocyte Esterase Urine Small (1+) Negative RBC Urine 6-10 0-2 /HPF WBC Urine 6-10 0-5 /HPF Squamous Epithelial Cell Urine 6-10 0-2 /HPF Bacteria Urine Trace None Seen Hyaline Casts Urine 0-2 0-2 /LPF REASON FOR VISIT yearly fasting labs Medications Medication SIG (Take, Route, Frequency, Duration) Notes Start Date End Date Status Albuterol Sulfate HFA 108 (90 Base) MCG/ACT 1 puff as needed Inhalation every 4 hrs Active Albuterol Sulfate (2.5 MG/3ML) 0.083% as directed Inhalation every 6 hrs 08/30/2017 Active Wixela Inhub 250-50 MCG/ACT INHALE 1 PUFF INTO THE LUNGS TWICE A DAY FOR 90 DAYS Active Valsartan-hydroCHLOROthia zide 160-12.5 MG TAKE 1 TABLET BY MOUTH EVERY DAY FOR 90 DAYS Active LORazepam 0.5 MG 1 tablet at bedtime as needed Orally Twice a day 12/02/2023 Active Ventolin HFA * 108 (90 Base) MCG/ACT 2 puffs as needed Inhalation every 4 hrs for 90 days Not-Taking Valtrex 1 GM 1 tablet Orally ever y 24 hrs for 30 days Active Ibuprofen 800 MG 1 tablet Orally Thre e times a day for 90 days Active Triamcinolone Acetonide 0.5 % 1 application to affected area Externally Twice a day for 30 days 11/01/2018 Active Fluticasone Propionate 50 MCG/ACT SPRAY 2 SPRAYS IN EACH NOSTRIL ONCE A DAY Active Encounters Encounter Location Date Provider Diagnosis Paolo Mcmahon MD [address] [place], [place] [phone] 07/25/2024 Paolo Mcmahon Blood tests for rout ine general physical examination Z00.00 ; Essential hypertension I10 ; Vitamin D deficiency E55.9 and Pure hypercholesterolemia E78.00 Assessments Encounter Date Diagnosis (ICD Code) Assessment Notes Treatment Notes Treatment Clinical Notes Section Notes 07/25/2024 Blood tests for rout ine general physical examination (ICD-10 - Z00.00) 07/25/2024 Essential hypertensi on (ICD-10 - I10) 07/25/2024 Vitamin D deficiency (ICD-10 - E55.9) 07/25/2024 Pure hypercholesterolemia (ICD-10 - E78.00) Plan Of Treatment Next Appt Details Provider Name:Paolo Burt ier, 09/03/2025 09:30:00 AM, [address] [facility], [address], [place], [place], [phone], Progress Notes * Lucy ARAUJO PDOB: [birth year] (65 yo F)Acc No.[id number]:07/25/2024 Progress Note Patient: Catrina QUINN Lucy Salcedo Provider: Catrina Mcmahon MD :1960 A ge:64 Y S ex:Female Date:07/25/2024 Address:[address] [place] [phone] Subjective: * Chief Complaints: * 1 . Yearly fasting labs. * Medical History: * Medications: T aking Triamcinolone Acetonide 0.5 % Cream 1 application to affected area Externally Twice a day , Taking Ibuprofen 800 MG Tablet 1 tablet Orally Three times a day , Taking Valtrex 1 GM Tablet 1 tablet Orally every 24 hrs , Taking Fluticasone Propionate 50 MCG/ACT Suspension SPRAY 2 SPRAYS IN EACH NOSTRIL ONCE A DAY , Taking LORazepam 0.5 MG Tablet 1 tablet at bedtime as needed Orally Twice a day , Taking Valsartan-hydroCHLOROthiazide 160-12.5 MG Tablet TAKE 1 TABLET BY MOUTH EVERY DAY FOR 90 DAYS , Taking Wixela Inhub 250-50 MCG/ACT Aerosol Powder Breath Activated INHALE 1 PUFF INTO THE LUNGS TWICE A DAY FOR 90 DAYS , Taking Albuterol Sulfate (2.5 MG/3ML) 0.083% Nebulization Solution as directed Inhalation every 6 hrs , Taking Albuterol Sulfate HFA 108 (90 Base) MCG/ACT Aerosol Solution 1 puff as needed Inhalation every 4 hrs , Not-Taking/PRN Ventolin HFA * 108 (90 Base) MCG/ACT Aerosol Solution 2 puffs as needed Inhalation every 4 hrs Objective: * Vitals: Assessment: * Assessment: 1. B lood tests for routine general physical examination - Z00.00 (Primary) 2 .?Essential hypertension - I10 3 . V itamin D deficiency - E55.9 ?4. P ure hypercholesterolemia - E78.00 Plan: * Treatment: 2. E ssential hypertension L AB: Complete Blood Count Auto Diff (Collection Date & Time - 07/25/2024 07:45 AM) L AB: Comprehensive [place]. Panel Fast (Collection Date & Time - 07/25/2024 07:45 AM) L AB: Lipid Panel (Collection Date & Time - 07/25/2024 07:45 AM) L AB: Vitamin D 25-OH Total (Collection Date & Time - 07/25/2024 07:45 AM) L AB: UA ClnCatch+Micro w/rflx Cult (Collection Date & Time - 07/25/2024 07:45 AM) 3. V itamin D deficiency L AB: Complete Blood Count Auto Diff (Collection Date & Time - 07/25/2024 07:45 AM) L AB: Comprehensive [place]. Panel Fast (Collection Date & Time - 07/25/2024 07:45 AM) L AB: Lipid Panel (Collection Date & Time - 07/25/2024 07:45 AM) L AB: Vitamin D 25-OH Total (Collection Date & Time - 07/25/2024 07:45 AM) L AB: UA ClnCatch+Micro w/rflx Cult (Collection Date & Time - 07/25/2024 07:45 AM) 4. P ure hypercholesterolemia L AB: Complete Blood Count Auto Diff (Collection Date & Time - 07/25/2024 07:45 AM) L AB: Comprehensive [place]. Panel Fast (Collection Date & Time - 07/25/2024 07:45 AM) L AB: Lipid Panel (Collection Date & Time - 07/25/2024 07:45 AM) L AB: Vitamin D 25-OH Total (Collection Date & Time - 07/25/2024 07:45 AM) L AB: UA ClnCatch+Micro w/rflx Cult (Collection Date & Time - 07/25/2024 07:45 AM) * Procedure Codes: 3 6415 VENIPUNCT, ROUTINE* * * The named appointment provid er may or may not be the originator of this progress note, and it is not deemed complete until electronically signed by the appointment provider. Sign off status: Pending * Provider: Catrina Mcmahon MD Date: 1 09/25/2023 Generated for Tali childs/Judy/Wilfred on: 10/11/2024 12:46 PM EST
--- OUTSIDE RECORDS SUMMARY | 2024-08-28 08:30 | XMS_ITS ---
Author Organization Paolo Mcmahon MD Address [address] [place] [phone] Care Team Providers Care Commissioner Of Conciliation Name Role Phone Paolo Mcmahon Primary Care Provider Allergies No Known Allergies REASON FOR VISIT review US had Covid last week video [phone] Medications Medication SIG (Take, Route, Frequency, Duration) Notes Start Date End Date Status Fluticasone Propionate 50 MCG/ACT SPRAY 2 SPRAYS IN EACH NOSTRIL ONCE A DAY Active Valtrex 1 GM 1 tablet Orally ever y 24 hrs for 30 days Active Wixela Inhub 250-50 MCG/ACT INHALE 1 PUFF INTO THE LUNGS TWICE A DAY FOR 90 DAYS Active Valsartan-hydroCHLOROthia zide 160-12.5 MG TAKE 1 TABLET BY MOUTH EVERY DAY FOR 90 DAYS Active LORazepam 0.5 MG 1 tablet at bedtime as needed Orally Twice a day 12/02/2023 Active Ibuprofen 800 MG 1 tablet Orally Thre e times a day for 90 days Active Triamcinolone Acetonide 0.5 % 1 application to affected area Externally Twice a day for 30 days 11/01/2018 Active Albuterol Sulfate (2.5 MG/3ML) 0.083% as directed Inhalation every 6 hrs 08/30/2017 Active Ventolin HFA * 108 (90 Base) MCG/ACT 2 puffs as needed Inhalation every 4 hrs for 90 days Not-Taking Albuterol Sulfate HFA 108 (90 Base) MCG/ACT 1 puff as needed Inhalation every 4 hrs Active Problems Problem Type SNOMED Code ICD Code Onset Dates Problem Status W/U Status Risk Notes Problem 061075658 Thyroid nodule (E04.1) Active confirmed Problem 755501146 Bilateral carotid artery disease, 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) Active confirmed Vital Signs Height 65 in 08/28/2024 Weight 178 lbs 08/28/2024 BMI 29.62 kg/m2 08/28/2024 weight at home 178 BP not ta melissa today no temp Encounters Encounter Location Date Provider Diagnosis Paolo Mcmahon MD [address] [facility] [address] [place], [place] [phone] 08/28/2024 Paolo Mcmahon Thyroid nodule E04.1 and Bilateral carotid artery disease, unspecified type I77.9 Assessments Encounter Date Diagnosis (ICD Code) Assessment Notes Treatment Notes Treatment Clinical Notes Section Notes 08/28/2024 Thyroid nodule (ICD-10 - E04.1) pending diagnostic testing, repeat carotid us in [address] to put that in the future so put it in one year and will repeat it at two/ order put in future folder for 202608/28/2024 Bilateral carotid artery disease, unspecified type (ICD-10 - I77.9) discussed findings of recent Carotid US, will follow up of 2 years with repeat Plan Of Treatment Treatment Notes Assessment Notes Thyroid nodule pending diagnostic t esting, repeat carotid us in [address] to put that in the future so put it in one year and will repeat it at two/ order put in future folder for 2026 Bilateral carotid artery dis ease, unspecified type discussed findings of recent Carotid US, will follow up of 2 years with repeat Pending Test Test Name Order Date US thyroid 08/28/2024 Future Test Test Name Order Date US CAROTID BILATERAL DOPPLER 08/28/2025 Next Appt Details Provider Name:Paolo Denisse Burt ier, 09/03/2025 09:30:00 AM, [address], [address], [place], [place], [phone], Progress Notes * Karl ARAUJOu PDOB: [birth year] (64 yo F)Acc No.[id number]:08/28/2024 Patient: Alanis Redlooly Salcedo Provider: Catrina Mcmahon MD :1960 A ge:64 Y S ex:Female Date:08/28/2024 Address:[address] [place], [place] [phone] Subjective: * Chief Complaints: * r nando US had Covid last week video [phone] * HPI: S ymptom(s): Telehealth L ocation of provider rendering services: [address] [facility], [address], ocation of patient: o ther (please specify) Patient is at work in [place], atient identification confirmed using: NAA Jimenez ame, T elehealth method: V ideo conference where patient is visible to the provider of care, C onsent: P atient verbally consented to treatment, Patient verbally consented to billing insurance company, Patient informed of any privacy concerns related to method of visit, T otal time spend talking with patient (minutes) 1 5. patient is a 64 yo female here for follow up. has covid. didn't get it in chest. just stuffy nose. * ROS: G eneral/Constitutional: Denies C hills. D enies F atigue. D enies F ever. D enies H eadache. E NT: Patient denies d ecreased sense of smell , any loss of taste , sore throat. D enies S ore throat. R espiratory: Denies C ough. D enies S hortness of breath at rest. D enies S hortness of breath with exertion. G astrointestinal: Denies D iarrhea. D enies N ausea. M usculoskeletal: Patient denies m uscle aches. P eripheral Vascular: Patient denies r ed and blue toes. * Medical History: * Surgical History: * Hospitalization/Major Diagno stic Procedure: * Medications: T akingTriamcinolone Acetonide 0.5 % Cream 1 application to affected area Externally Twice a dayIbuprofen 800 MG Tablet 1 tablet Orally Three times a dayValtrex 1 GM Tablet 1 tablet Orally every 24 hrsFluticasone Propionate 50 MCG/ACT Suspension SPRAY 2 SPRAYS IN EACH NOSTRIL ONCE A DAY LORazepam 0.5 MG Tablet 1 tablet at [...] puff as needed Inhalation every 4 hrsTaking Triamcinolone Acetonide 0.5 % Cream 1 application to affected area Externally Twice a dayTaking Ibuprofen 800 MG Tablet 1 tablet Orally Three times a dayTaking Valtrex 1 GM Tablet 1 tablet Orally every 24 hrsTaking Fluticasone Propionate 50 MCG/ACT Suspension SPRAY 2 SPRAYS IN EACH NOSTRIL ONCE A DAY Taking LORazepam 0.5 MG Tablet 1 tablet at bedtime as needed Orally Twice a dayTaking Valsartan-hydroCHLOROthiazide 160-12.5 MG Tablet TAKE 1 TABLET [...] 1 puff as needed Inhalation every 4 hrsNot-Taking/PRNVentolin HFA * 108 (90 Base) MCG/ACT Aerosol Solution 2 puffs as needed Inhalation every 4 hrsMedication List reviewed and reconciled with the patientNot-Taking/PRN Ventolin HFA * 108 (90 Base) MCG/ACT Aerosol Solution 2 puffs as needed Inhalation every 4 hrsMedication List reviewed and reconciled with the patient * Allergies: N .K.D.A.yes[Allergies Verified] Objective: * Vitals: H t: 65, Wt: 178, BMI:29.62, Wt-k.74 weight at home 178 BP not taken today no temp. * Examination: G eneral Examination: GENERAL APPEARANCE: a lert, well hydrated, in no distress.? Assessment: * Assessment: 1. T hyroid nodule - E04.1 (Primary) 2 . B ilateral carotid artery disease, unspecified type - I77.9 Plan: * Treatment: Notes: pending diagnostic testing, repeat carotid us in [address] to put that in the future so put it in one year and will repeat it at two/ order put in future folder for 2026??2.?Bilateral carotid artery disease, unspecified type? Notes: discussed findings of recent Carotid US, will follow up of 2 years with repeat?? * Procedure Codes: 9 8005 SYNCH AUDIO-VIDEO EST LOW 20 * * Sign off status: Completed true * Provider: Catrina Mcmahon MD Date: 0 08/28/2024 Generated for Tali childs/Judy/eTransmitting on: 1 10/11/2024 12:47 PM EST History and Physical Notes * HPI (History of Present Illness) Category Sub-Category Detail Notes Category Not es Symptom(s) Telehealth Location of prov ider rendering services:: [address], [address] patient is a 64 yo female here for follow up. has covid. didn't get it in chest. just stuffy nose Location of patient:: other (please spec shabbir) Patient is at work in [place] Patient identification confirmed using:: Name, Telehealth method:: Video co nference where patient is visible to the provider of care Consent:: Patient verbally c onsented to treatment, Patient verbally consented to billing insurance company, Patient informed of any privacy concerns related to method of visit Total time spend talking with patient (m inutes): 15 Examination Category Sub-Category Detail Notes Category Not es General Examination GENERAL APPEARANCE: alert, w ell hydrated, in no distress
--- OUTSIDE RECORDS SUMMARY | 2024-11-06 02:12 | XMS_ITS ---
Author Organization Paolo Mcmahon MD Address [address] [place] [phone] Care Team Providers Care Miter Cutter Name Role Phone Paolo Mcmahon Primary Care Provider [phone] REASON FOR VISIT New Refill Request Medications Medication SIG (Take, Route, Frequency, Duration) Notes Start Date End Date Status Wixela Inhub 250-50 MCG/ACT INHALE 1 PUFF INTO THE LUNGS TWICE A DAY FOR 90 DAYS Inhalation Twice a day for 30 days Active Encounters Encounter Location Date Provider Diagnosis Paolo Mcmahon MD [address] [place], [place] [phone] 11/06/2024 Paolo Mcmahon Mild intermittent asthma without [...] Name:Paolo Burt ier, 09/03/2025 09:30:00 AM, [address], [address], [place], [place], [phone], Progress Notes * Lucy ARAUJO PDOB: [birth year] (64 yo F)Acc No.[id number]:11/06/2024 Patient: Lucy CHRISTIANSON :1960 A ge:64 Y S ex:Female Address:[address] [place] [phone] * Refills Refill Wixela Inhub Aerosol Powder Breath Activated, 250-50 MCG/ACT, Inhalation, 1, INHALE 1 PUFF INTO THE LUNGS TWICE A DAY FOR 90 DAYS, Twice a day, 30 days, Refills=11 * true * Date: Generated for Tali childs/Judy/Wilfred on: 10/11/2024 12:47 PM EST
--- OUTSIDE RECORDS SUMMARY | 2024-12-21 10:30 | XMS_ITS ---
Author Organization Paolo Mcmahon MD Address [address] [place] [phone] Care Team Providers Care Warp Scouring Vat Tender Name Role Phone Paolo Mcmahon Primary Care Provider [phone] Allergies No Known Allergies REASON FOR VISIT c/o had a temp 101 2 days ago , productive cough, Congestion nauseau. 2 negative Covid tests one this AM, Video [phone] Medications Medication SIG (Take, Route, Frequency, Duration) Notes Start Date End Date Status predniSONE 10 MG 1 tablet with food o r milk Orally 4 tabs for 3 days,3tabs for 3 days, 2 tabs for 3 days, and 1 tab for 3 days for 14 days 12/21/2024 Active Zithromax Z-Ren 250 MG 2 tablet on the irst day, then 1 tablet daily for 4 days Orally Once a day for 5 day(s) 12/21/2024 Active LORazepam 0.5 MG 1 tablet at bedtime as needed Orally Twice a day 12/02/2023 Active Albuterol Sulfate HFA 108 (90 Base) MCG/ACT 1 puff as needed Inhalation every 4 hrs Active Albuterol Sulfate (2.5 MG/3ML) 0.083% as directed Inhalation every 6 hrs 08/30/2017 Active Ventolin HFA * 108 (90 Base) MCG/ACT 2 puffs as needed Inhalation every 4 hrs for 90 days Not-Taking Triamcinolone Acetonide 0.5 % 1 application to affected area Externally Twice a day for 30 days 11/01/2018 Active Ibuprofen 800 MG 1 tablet Orally Thre e times a day for 90 days Active Valsartan-hydroCHLOROthia zide 160-12.5 MG TAKE 1 TABLET BY MOUTH EVERY DAY for 90 Active Wixela Inhub 250-50 MCG/ACT INHALE 1 PUFF INTO THE LUNGS TWICE A DAY FOR 90 DAYS Inhalation Twice a day for 30 days Active Fluticasone Propionate 50 MCG/ACT SPRAY 2 SPRAYS INTO EACH NOSTRIL ONCE DAILY for 90 Active valACYclovir HCl 1 GM TAKE 1 TABLET ORAL LY EVERY 24 HRS 30 DAYS for 90 Active Vital Signs Height 65 in 12/21/2024 Weight 174 lbs 12/21/2024 BMI 28.95 kg/m2 12/21/2024 weight is 174 at home BP not taken no emp today Encounters Encounter Location Date Provider Diagnosis Paolo Mcmahon MD [address] [place] [address] Drive [address] [place], [place] [phone] 12/21/2024 Paolo Mcmahon Bronchitis J40 Assessments Encounter Date Diagnosis (ICD Code) Assessment Notes Treatment Notes Treatment Clinical Notes Section Notes 12/21/2024 Bronchitis (ICD-10 - J40) patient verbalized understanding of medication and directions for use Plan Of Treatment Medication Medication Name Sig Start Date Stop Date Notes predniSONE 10 MG 1 tablet with food o r milk Orally 4 tabs for 3 days,3tabs for 3 days, 2 tabs for 3 days, and 1 tab for 3 days for 14 days 12/21/2024 Zithromax Z-Ren 250 MG 2 tablet on the f irst day, then 1 tablet daily for 4 days Orally Once a day for 5 day(s) 12/21/2024 Treatment Notes Assessment Notes Bronchitis patient verbalized u nderstanding of medication and directions for use Next Appt Details Provider Name:Paolo Denisse Burt ier, 09/03/2025 09:30:00 AM, [address] [facility], [address], [place], [place], [phone], Progress Notes * Alanis ARAUJOlou PDOB: [birth year] (64 yo F)Acc No.[id number]:12/21/2024 Patient: Alanis CHRISTIANSONlooly Salcedo Provider: Catrina Mcmahon MD :1960 A ge:64 Y S ex:Female Date:12/21/2024 Address:[address] [place], [place] [phone] Subjective: * Chief Complaints: * c /o had a temp 101 2 days ago , productive cough, Congestion nauseau. 2 negative Covid tests one this AMVideo [phone] * HPI: S ymptom(s): Telehealth L ocation of provider rendering services: 1 [address] [facility], [address], ocation of patient: a t address listed in demographics for today's visit, P atient identification confirmed using: NAA Jimenez ame, T elehealth method: V ideo conference where patient is visible to the provider of care, C onsent: P atient verbally consented to treatment, Patient verbally consented to billing insurance company, Patient informed of any privacy concerns related to method of visit, T otal time spend talking with patient (minutes) 1 8. saeed is a 64 yo female, video telehealth visit, had 2 days of fever but gone now. wheezing and coughing. short of breath. * ROS: G eneral/Constitutional: Denies C hills. D enies F atigue. D enies F ever. D enies H eadache. E NT: Denies S ore throat. R espiratory: Admits Anshul ough. D enies S hortness of breath at rest. A dmits S hortness of breath with exertion. A dmits S putum production. A dmits W heezing. G astrointestinal: Denies D iarrhea. D enies N ausea. * Medical History: * Surgical History: * Hospitalization/Major Diagno stic Procedure: * Medications: T akingTriamcinolone Acetonide 0.5 % Cream 1 application to affected area Externally Twice a day Ibuprofen 800 MG Tablet 1 tablet Orally Three times a day LORazepam 0.5 MG Tablet 1 tablet at bedtime as needed Orally Twice a day Albuterol Sulfate (2.5 MG/3ML) 0.083% Nebulization Solution as directed Inhalation every 6 hrs Albuterol Sulfate HFA 108 (90 Base) MCG/ACT Aerosol Solution 1 puff as needed Inhalation every 4 hrs valACYclovir HCl 1 GM Tablet TAKE 1 TABLET ORALLY EVERY 24 HRS 30 DAYS Fluticasone Propionate 50 MCG/ACT Suspension SPRAY 2 SPRAYS INTO EACH NOSTRIL ONCE DAILY Wixela Inhub 250-50 MCG/ACT Aerosol Powder Breath Activated INHALE 1 PUFF INTO THE LUNGS TWICE A DAY FOR 90 DAYS Inhalation Twice a day Valsartan-hydroCHLOROthiazide 160-12.5 MG Tablet TAKE 1 TABLET BY MOUTH EVERY DAY Taking Triamcinolone Acetonide 0.5 % Cream 1 application to affected area Externally Twice a day Taking Ibuprofen 800 MG Tablet 1 tablet Orally Three times a day Taking LORazepam 0.5 MG Tablet 1 tablet at bedtime as needed Orally Twice a day Taking Albuterol Sulfate (2.5 MG/3ML) 0.083% Nebulization Solution as directed Inhalation every 6 hrs Taking Albuterol Sulfate HFA 108 (90 Base) MCG/ACT Aerosol Solution 1 puff as needed Inhalation every 4 hrs Taking valACYclovir HCl 1 GM Tablet TAKE 1 TABLET ORALLY EVERY 24 HRS 30 DAYS Taking Fluticasone Propionate 50 MCG/ACT Suspension SPRAY 2 SPRAYS INTO EACH NOSTRIL ONCE DAILY Taking Wixela Inhub 250- 50 MCG/ACT Aerosol Powder Breath Activated INHALE 1 PUFF INTO THE LUNGS TWICE A DAY FOR 90 DAYS Inhalation Twice a day Taking Valsartan-hydroCHLOROthiazide 160-12.5 MG Tablet TAKE 1 TABLET BY MOUTH EVERY DAY Not-Taking/PRNVentolin HFA * 108 (90 Base) MCG/ACT Aerosol Solution 2 puffs as needed Inhalation every 4 hrs Medication List reviewed and reconciled with the patientNot-Taking/PRN Ventolin HFA * 108 (90 Base) MCG/ACT Aerosol Solution 2 puffs as needed Inhalation every 4 hrs Medication List reviewed and reconciled with the patient * Allergies: N .K.D.A.yes[Allergies Verified] Objective: * Vitals: H t: 65, Wt: 174, BMI:28.95, Wt-k.93. weight is 174 at home BP not taken no emp today. * Examination: G eneral Examination: GENERAL APPEARANCE: c oughing and wheezing. ? Assessment: * Assessment: 1. B melina - Vinnie (Primary) Plan: * Treatment: * Procedure Codes: * * Sign off status: Completed true * Provider: Catrina Mcmahon MD Date: 0 12/21/2024 Generated for Tali childs/Judy/Randyitting on: 1 10/11/2024 12:47 PM EST History and Physical Notes * HPI (History of Present Illness) Category Sub-Category Detail Notes Category Not es Symptom(s) Telehealth Location of [facility] rendering services:: [address], [address] saeed is a 64 yo female, video telehealth visit, had 2 days of fever but gone now. wheezing and coughing. short of breath Location of patient:: at address listed in demographics for today's visit Patient identification confirmed using:: Name, Telehealth method:: Video co nference where patient is visible to the provider of care Consent:: Patient verbally c onsented to treatment, Patient verbally consented to billing insurance company, Patient informed of any privacy concerns related to method of visit Total time spend talking with patient (m inutes): 18 Examination Category Sub-Category Detail Notes Category Not es General Examination GENERAL APPEARANCE: coughing and w heezing
--- OUTSIDE RECORDS SUMMARY | 2025-01-09 05:36 | XMS_ITS ---
Author Organization Paolo Mcmahon MD Address [address] [place] [phone] Care Team Providers Care Sea Shell Gatherer Name Role Phone Paolo Mcmahon Primary Care Provider REASON FOR VISIT still coughing Encounters Encounter Location Date Provider Diagnosis Paolo Mcmahon MD [address] [place] [phone] 01/09/2025 Paolo Mcmahon Plan Of Treatment Next Appt Details Provider Name:Paolo holland, 09/03/2025 09:30:00 AM, [address], [address], [place], [place], [phone], Progress Notes * Lucy ARAUJO PDOB: [birth year] (64 yo F)Acc No.[id number]:01/09/2025 Patient: Lucy CHRISTIANSON :1960 A ge:64 Y S ex:Female Address:[address] [place] [phone] * true * Date: Generated for Tali childs/Judy/Brandonsmitting on: 10/11/2024 12:46 PM EST
--- OUTSIDE RECORDS SUMMARY | 2025-01-09 09:15 | XMS_ITS ---
Author Organization Paolo Mcmahon MD Address [address] [place] [phone] Support Name Relationship Address Phone Paolo Mcmahon Caregiver [address] [facility] ve [address] [place] [phone] Nicolas Snyder [facility]giver [facility] [address] [place] [phone] Akosua Cazares Caregiver 10 [facility] [address] [address] [place] [phone] Rashi Luna Caregiver [address] [facility] [address] [address] [place] [phone] Sejal Graff Caregiver 10 [facility] ri[address] [place] [phone] NEGRITA Kimble Caregiver 10 [facility] ve [address] [place] [phone] Ramana Vieira Caregiver [address] [facility] [address] [place] [phone] Larisa Redd Caregiver [address] [facility] [address] ve [address] [place] [phone] Unavailable Emergency Contact Unknown Lucy Araujo Guarantor Unknown [phone] Care Team Providers Care Rubber Insulator Name Role Phone Paolo Mcmahon Primary Care Provider Allergies No Known Allergies REASON FOR VISIT still coughing no other Covid symptoms, Video [phone] Medications Medication SIG (Take, Route, Frequency, Duration) Notes Start Date End Date Status Omeprazole 20 MG 1 capsule 1/2 to 1 hour before morning meal Orally Once a day for 30 day(s) 01/09/2025 Active Hydrocod Gregg-Chlorphe Gregg ER 10-8 MG/5ML 5 mL as needed Orally every 12 hrs for 30 days Partial Fill upon Patient Request 01/09/2025 Active Ventolin HFA * 108 (90 Base) MCG/ACT 2 puffs as needed Inhalation every 4 hrs for 90 days Not-Taking Wixela Inhub 250-50 MCG/ACT INHALE 1 PUFF INTO THE LUNGS TWICE A DAY FOR 90 DAYS Inhalation Twice a day for 30 days Active Valsartan-hydroCHLORO thiazide 160-12.5 MG TAKE 1 TABLET BY MOUTH EVERY DAY for 90 Active Albuterol Sulfate HFA 108 (90 Base) MCG/ACT 1 puff as needed Inhalation every 4 hrs Active valACYclovir HCl 1 GM TAKE 1 TABLET ORALLY EVERY 24 HRS 30 DAYS for 90 Active Fluticasone Propionate 50 MCG/ACT SPRAY 2 SPRAYS INTO EACH NOSTRIL ONCE DAILY for 90 Active Triamcinolone Acetonide 0.5 % 1 application to affected area Externally Twice a day for 30 days 11/01/2018 Active Albuterol Sulfate (2.5 MG/3ML) 0.083% as directed Inhalation every 6 hrs 08/30/2017 Active Ibuprofen 800 MG 1 tablet Orally Three times a day for 90 days Active LORazepam 0.5 MG 1 tablet at bedtime as needed Orally Twice a day 12/02/2023 Active Vital Signs Height 65 in 01/09/2025 Weight 174 lbs 01/09/2025 BMI 28.95 kg/m2 01/09/2025 Encounters Encounter Location Date Provider Diagnosis Paolo Mcmahon MD [address] [place] [address] [place] [phone] 01/09/2025 Paolo Mcmahon Hiatal hernia K44.9 and Persistent cough R05.3 Assessments Encounter Date Diagnosis (ICD Code) Assessment Notes Treatment Notes Treatment Clinical Notes Section Notes 01/09/2025 Hiatal hernia (ICD-10 - K44.9) patient verbalized understanding of medicationand directions for use 01/09/2025 Persistent cough (ICD-10 - R05.3) patient verbalized understanding of the medication and directions for use, pending diagnostic testing/ [place] [facility] [place] Reg Plan Of Treatment Medication Medication Name Sig Start Date Stop Date Notes Omeprazole 20 MG 1 capsule 1/2 to 1 hour before morning meal Orally Once a day for 30 day(s) 01/09/2025 Hydrocod Gregg-Chlorphe Gregg ER 10-8 MG/5ML 5 mL as needed Orally every 12 hrs for 30 days 01/09/2025 Partial Fill upon Patient Request Treatment Notes Assessment Notes Hiatal hernia patient verbalized u nderstanding of medicationand directions for use Persistent cough patient verbalized u nderstanding of the medication and directions for use, pending diagnostic testing/ order [place] [facility] Patient Reg Pending Test Test Name Order Date XR CHEST 2 VIEW PA & LAT 01/09/2025 Next Appt Details Provider Name:Paolo Burt ier, 09/03/2025 09:30:00 AM, [address] [facility], [address], [place], [place], [phone], Progress Notes * Lucy ARAUJO PDOB: [birth year] (64 yo F)Acc No.[id number]:01/09/2025 Patient: Lucy CHRISTIANSON Provider: Catrina Mcmahon MD :1960 A ge:64 Y S ex:Female Date:01/09/2025 Address:[address] [place], [place] [phone] Subjective: * Chief Complaints: * s till coughing no other Covid symptomsVideo [phone] * HPI: S ymptom(s): Telehealth L ocation of provider rendering services: [address], [address], ocation of patient: a t address listed in demographics for today's visit, P atient identification confirmed using: NAA Jimenez ame, T elehealth method: T elephone only. Patient not visible to care provider., C onsent: P atient verbally consented to treatment, Patient verbally consented to billing insurance company, Patient informed of any privacy concerns related to method of visit, T otal time spend talking with patient (minutes) 1 7. patient is a 64 yo female video telehealth visit, still coughing and has a squeak. did the prednisone already and it helped a little. coughing for 10 mins straight. * ROS: G eneral/Constitutional: Denies C hills. D enies F ana. D enies F ever. D enies H eadache. E NT: Patient denies d ecreased sense of smell, any loss of taste, sore throat. D enies S ore throat. R espiratory: Admits Anshul ough. D enies S hortness of breath at rest. D enies S hortness of breath with exertion. D enies S putum production. A dmits W isabella. M usculoskeletal: Patient denies m uscle aches. [...] puffs as needed Inhalation every 4 hrs Not-Taking/PRN Ventolin HFA * 108 (90 Base) MCG/ACT Aerosol Solution 2 puffs as needed Inhalation every 4 hrs DiscontinuedZithromax Z-Ren 250 MG Tablet 2 tablet on the first day, then 1 tablet daily for 4 days Orally Once a day predniSONE 10 MG Tablet 1 tablet with food or milk Orally 4 tabs for 3 days,3tabs for 3 days, 2 tabs for 3 days, and 1 tab for 3 days Medication List reviewed and reconciled with the patientDiscontinued Zithromax Z-Ren 250 MG Tablet 2 tablet on the first day, then 1 tablet daily for 4 days Orally Once a day Discontinued predniSONE 10 MG Tablet 1 tablet with food or milk Orally 4 tabs for 3 days,3tabs for 3 days, 2 tabs for 3 days, and 1 tab for 3 days Medication List reviewed and reconciled with the patient * Allergies: N .K.D.A.yes[Allergies Verified] Objective: * Vitals: H t: 65, Wt: 174, BMI:28.95, Wt-k.93. * Examination: G eneral Examination: GENERAL APPEARANCE: a lert, well hydrated, in no distress.? Assessment: * Assessment: 1. P ersistent cough - R05.3 (Primary) 2 . H iatal hernia - K44.9 ? Plan: * Treatment: 2. H iatal hernia Start Omeprazole Capsule Delayed Release, 20 MG, 1 capsule 1/2 to 1 hour before morning meal, Orally, Once a day, 30 day(s), . Notes: patient verbalized understanding of medicationand directions for use * Procedure Codes: * * Sign off status: Completed true * Provider: Catrina Mcmahon MD Date: 0 01/09/2025 Generated for Tali childs/Judy/Brandonsmitting on: 1 10/11/2024 12:47 PM EST History and Physical Notes * HPI (History of Present Illness) Category Sub-Category Detail Notes Category Not es Symptom(s) Telehealth Location of [facility] rendering services:: [address], [address] patient is a 64 yo female video telehealth visit, still coughing and has a squeak. did the prednisone already and it helped a little. coughing for 10 mins straight Location of patient:: at address listed in demographics for today's visit Patient identification confirmed using:: Name, Telehealth method:: Telephone only. Janine ent not visible to care provider. Consent:: Patient verbally c onsented to treatment, Patient verbally consented to billing insurance company, Patient informed of any privacy concerns related to method of visit Total time spend talking with patient (m inutes): 17 Examination Category Sub-Category Detail Notes Category Not es General Examination GENERAL APPEARANCE: alert, w ell hydrated, in no distress
--- OUTSIDE RECORDS SUMMARY | 2025-01-29 10:00 | XMS_ITS ---
Author Organization Paolo Mcmahon MD Address [address] [place] [phone] Care Team Providers Care Industrial Insulator Name Role Phone Paolo Mcmahon Primary Care Provider Allergies No Known Allergies REASON FOR VISIT 6 month Medications Medication SIG (Take, Route, Frequency, Duration) Notes Start Date End Date Status Fluticasone Propionate 50 MCG/ACT SPRAY 2 SPRAYS INTO EACH NOSTRIL ONCE DAILY for 90 Active valACYclovir HCl 1 GM TAKE 1 TABLET ORALLY EVERY 24 HRS 30 DAYS for 90 Active Ventolin HFA * 108 (90 Base) MCG/ACT 2 puffs as needed Inhalation every 4 hrs for 90 days Not-Taking Hydrocod Gregg-Chlorphe Gregg ER 10-8 MG/5ML 5 mL as needed Orally every 12 hrs for 30 days Partial Fill upon Patient Request 01/09/2025 Active Omeprazole 20 MG TAKE 1 CAPSULE BY MOUTH ONCE A DAY 30 MINUTES TO 1 HOUR BEFORE MORNING MEAL for 30 Active LORazepam 0.5 MG 1 tablet at bedtime as needed Orally Twice a day 12/02/2023 Active Wixela Inhub 250-50 MCG/ACT INHALE 1 PUFF INTO THE LUNGS TWICE A DAY FOR 90 DAYS Inhalation Twice a day Active Triamcinolone Acetonide 0.5 % 1 application to affected area Externally Twice a day for 30 days 11/01/2018 Active Valsartan-hydroCHLORO thiazide 160-12.5 MG TAKE 1 TABLET BY MOUTH EVERY DAY Active Ibuprofen 800 MG 1 tablet Orally Three times a day for 90 days Active Albuterol Sulfate (2.5 MG/3ML) 0.083% as directed Inhalation every 6 hrs 08/30/2017 Active Albuterol Sulfate HFA 108 (90 Base) MCG/ACT 1 puff as needed Inhalation every 4 hrs Active Vital Signs Blood pressure systolic 130 mm Hg 01/30/20 25 Blood pressure diastolic 78 mm Hg 025 Height 65 in 01/29/2025 Weight 178 lbs 01/29/2025 BMI 29.62 kg/m2 01/29/2025 weight is up 4 pounds since 01-09-25 Encounters Encounter Location Date Provider Diagnosis Paolo Mcmahon MD [address] [place] [address] [place] [phone] 01/29/2025 Paolo Mcmahon Essential hypertension I10 and Mild intermittent asthma without complication J45.20 Assessments Encounter Date Diagnosis (ICD Code) Assessment Notes Treatment Notes Treatment Clinical Notes Section Notes 01/29/2025 Essential hypertension (ICD-10 - I10) doing well 01/29/2025 Mild intermittent asthma without complication (ICD-10 - J45.20) doing well.. took omeprazole and got better. will try stopping it if she doesn't need Plan Of Treatment Medication Medication Name Sig Start Date Stop Date Notes Wixela Inhub 250-50 MCG/ACT INHALE 1 PUF F INTO THE LUNGS TWICE A DAY FOR 90 DAYS Inhalation Twice a day Valsartan-hydroCHLOROthiazid e 160-12.5 MG TAKE 1 TABLET BY MOUTH EVERY DAY Albuterol Sulfate (2.5 MG/3ML) 0.083% as directed Inhalation every 6 hrs 08/30/2017 Albuterol Sulfate HFA 108 (9 0 Base) MCG/ACT 1 puff as needed Inhalation every 4 hrs Treatment Notes Assessment Notes Essential hypertension doing well Mild intermittent asthma wit hout complication doing well.. took omeprazole and got better. will try stopping it if she doesn't need Next Appt Details Provider Name:Paolo Denisse Carmel ier, 09/03/2025 09:30:00 AM, [address], [address], [place], [place], [phone], Progress Notes * Lucy ARAUJO PDOB: [birth year] (64 yo F)Acc No.[id number]:01/29/2025 Progress Notes Patient: Catrina Lucy QUINN Provider: Catrina Mcmahon MD :1960 A ge:64 Y S ex:Female Date:01/29/2025 Address:[address] [place] [id number] Subjective: * Chief Complaints: * 6 month * HPI: S ymptom(s): patient is a 64 yo female here for 6 month follow up visit/ cough went away with omeprazole. started with regular cold and then had horrible cough. * ROS: G eneral/Constitutional: Denies C hills. D enies F atigue. D enies F ever. D enies H eadache. E NT: Denies S ore throat. R espiratory: Denies C [...] TAKE 1 TABLET BY MOUTH EVERY DAY Hydrocod Gregg-Chlorphe Gregg ER 10-8 MG/5ML Suspension Extended Release 5 mL as needed Orally every 12 hrs , Notes to Pharmacist: Partial Fill upon Patient RequestOmeprazole 20 MG Capsule Delayed Release TAKE 1 CAPSULE BY MOUTH ONCE A DAY 30 MINUTES TO 1 HOUR BEFORE MORNING MEAL Taking Triamcinolone Acetonide 0.5 % Cream 1 [...] EACH NOSTRIL ONCE DAILY Taking Wixela Inhub 250-50 MCG/ACT Aerosol Powder Breath Activated INHALE 1 PUFF INTO THE LUNGS TWICE A DAY FOR 90 DAYS Inhalation Twice a day Taking Valsartan-hydroCHLOROthiazide 160-12.5 MG Tablet TAKE 1 TABLET BY MOUTH EVERY DAY Taking Hydrocod Gregg-Chlorphe Gregg ER 10-8 MG/5ML Suspension Extended Release 5 mL as needed Orally every 12 hrs , Notes to Pharmacist: Partial Fill upon Patient RequestTaking Omeprazole 20 MG Capsule Delayed Release TAKE 1 CAPSULE BY MOUTH ONCE A DAY 30 MINUTES TO 1 HOUR BEFORE MORNING MEAL Not-Taking/PRNVentolin HFA * 108 (90 Base) MCG/ACT [...] Vitals: H t: 65, Wt: 178, BMI:29.62, BP:130/78, Repeat BP:130/78, Wt-k.74. weight is up 4 pounds since 01-09-25. * Examination: G eneral Examination: GENERAL APPEARANCE: a lert, well hydrated, in no distress.? HEAD: n ormocephalic. SKIN: g ood turgor. HEART: r egular rate and rhythm, no murmurs, rubs, gallops.? LUNGS: n o wheezes, rales, rhonchi, good air movement, clear to auscultation bilaterally. Assessment: * Assessment: 1. E ssential hypertension - I10 (Primary) 2 . M ild intermittent asthma without complication - J45.20 Plan: * Treatment: 2. M ild intermittent asthma without complication Continue Albuterol Sulfate Nebulization Solution, (2.5 MG/3ML) 0.083%, as directed, Inhalation, every 6 hrs; C ontinue Albuterol Sulfate HFA Aerosol Solution, 108 (90 Base) MCG/ACT, 1 puff as needed, Inhalation, every 4 hrs; C ontinue Wixela Inhub Aerosol Powder Breath Activated, 250-50 MCG/ACT, INHALE 1 PUFF INTO THE LUNGS TWICE A DAY FOR 90 DAYS, Inhalation, Twice a day. Notes: doing well.. took omeprazole and got better. will try stopping it if she doesn't need ? * Procedure Codes: * * Sign off status: Completed true * Provider: Catrina Mcmahon MD Date: 0 01/29/2025 Generated for Tali childs/Judy/Randyitting on: 1 10/11/2024 12:46 PM EST History and Physical Notes * HPI (History of Present Illness) Category Sub-Category Detail Notes Category Not es Symptom(s) patient is a 64 yo female here for 6 month follow up visit/ cough went away with omeprazole. started with regular cold and then had horrible cough Examination Category Sub-Category Detail Notes Category Not es General Examination GENERAL APPEARANCE: alert, w ell hydrated, in no distress HEAD: normocephalic HEART: regular rate and rhy thm, no murmurs, rubs, gallops LUNGS: no wheezes, rales, r honchi, good air movement, clear to auscultation bilaterally SKIN: good turgor
--- OUTSIDE RECORDS SUMMARY | 2025-07-16 03:15 | XMS_ITS ---
Author Organization Paolo Mcmahon MD Address [address] [place] [phone] Care Team Providers Care Hand Silvering Supervisor Name Role Phone Paolo Mcmahon Primary Care Provider [phone] Results Component Value Reference Range Notes Complete Blood Count Auto Di ff Reviewed date:07/16/2025 12:07:05 PM Interpretation: Performing Lab:[facility], [address] [place] [phone] Notes/Report: White Blood Count 6.6 4.8-10.8 X10*3/uL [...] NRBC Abs Auto 0.000 0.0-0.012 X10*3/uL Comprehensive Loa. Panel Fa st Reviewed date:07/16/2025 05:38:27 PM Interpretation: Performing Lab:[facility], [address] [place] [phone] Notes/Report: Sodium 142 135-145 mmol/L Potassium 3.9 [...] Panel Reviewed date:07/16/2025 05:32:53 PM Interpretation: Performing Lab:[facility], [address] [place] [phone] Notes/Report: Triglycerides 109 <150 mg/dL Desirable Triglyceride: [...] Total Reviewed date:07/16/2025 05:34:40 PM Interpretation: Performing Lab:[facility], [address] [place] [phone] Notes/Report: Vitamin D 25-OH Total 19.6 >30 [...] t Reviewed date:07/16/2025 05:37:13 PM Interpretation: Performing Lab:[facility], [address] [place] [phone] Notes/Report: Urine, Clean Catch Color Urine Yellow Appearance Urine Clear PH 5.5 5.0-9.0 Glucose Urine UA Negative Negative mg/dL Urine Blood Moderate (2+) Negative Specific Jackson - Urine >= 1.030 1.005-1.025 Urine Protein [...] Location Date Provider Diagnosis Paolo Mcmahon MD [address] [place] [address] [address] [place], [place] [phone] 07/16/2025 Paolo Mcmahon Blood tests for rout [...] Name:Paolo Burt ier, 09/03/2025 09:30:00 AM, [address], [address], [place], [place], [phone], Progress Notes * Lucy ARAUJO PDOB: [birth year] (65 yo F)Acc No.[id number]:07/16/2025 Progress Note Patient: Lucy CHRISTIANSON Provider: Catrina Mcmahon MD :1960 A ge:65 Y S ex:Female Date:07/16/2025 Address:[address] [place], [place] [id number] Subjective: * Chief Complaints: * 1 . [...] - 07/16/2025 08:15 AM) L AB: Comprehensive Loa. Panel Fast (Collection Date & Time - [...] - 07/16/2025 08:15 AM) L AB: Comprehensive Loa. Panel Fast (Collection Date & Time - [...] - 07/16/2025 08:15 AM) L AB: Comprehensive Loa. Panel Fast (Collection Date & Time - [...] 1 09/15/2024 Generated for Tali childs/Judy/Randyitting on: 10/11/2024 12:46 PM EST
--- OUTSIDE RECORDS SUMMARY | 2025-08-06 08:00 | XMS_ITS ---
Author Organization Paolo Mcmahon MD Address [address] [place] [phone] Care Team Providers Care Ball Worker Name Role Phone Paolo Mcmahon Primary Care Provider Allergies No Known Allergies REASON FOR VISIT sinus congested and draining, coughing x 4 days negative for Covid this AM, Video [phone] Medications Medication SIG (Take, Route, Frequency, Duration) Notes Start Date End Date Status Albuterol Sulfate (2.5 MG/3ML) 0.083% as directed Inhalation every 6 hrs 08/30/2017 Active Wixela Inhub 250-50 MCG/ACT INHALE 1 PUFF INTO THE LUNGS TWICE A DAY FOR 90 DAYS Inhalation Twice a day Active Albuterol Sulfate HFA 108 (90 Base) MCG/ACT 1 puff as needed Inhalation every 4 hrs Active Ventolin HFA * 108 (90 Base) MCG/ACT 2 puffs as needed Inhalation every 4 hrs for 90 days Not-Taking Valsartan-hydroCHLORO thiazide 160-12.5 MG TAKE 1 TABLET BY MOUTH EVERY DAY Active Hydrocod Gregg-Chlorphe Gregg ER 10-8 MG/5ML 5 mL as needed Orally every 12 hrs for 30 days Partial Fill upon Patient Request 01/09/2025 Active Fluticasone Propionate 50 MCG/ACT SPRAY 2 SPRAYS INTO EACH NOSTRIL ONCE DAILY for 90 Active Omeprazole 20 MG TAKE 1 CAPSULE BY MOUTH ONCE A DAY 30 MINUTES TO 1 HOUR BEFORE MORNING MEAL for 30 Active valACYclovir HCl 1 GM TAKE 1 TABLET ORALLY EVERY 24 HRS 30 DAYS for 90 Active LORazepam 0.5 MG 1 tablet at bedtime as needed Orally Twice a day 12/02/2023 Active Ibuprofen 800 MG 1 tablet Orally Three times a day for 90 days Active Triamcinolone Acetonide 0.5 % 1 application to affected area Externally Twice a day for 30 days 11/01/2018 Active Vital Signs Height 65 in 08/06/2025 Weight 175 lbs 08/06/2025 BMI 29.12 kg/m2 08/06/2025 weight is 175 at home BP not taken no temp Encounters Encounter Location Date Provider Diagnosis Paolo Mcmahon MD [address] [place], [place] [phone] 08/06/2025 Paolo Mcmahon URI (upper respiratory infection) J06.9 Assessments Encounter Date Diagnosis (ICD Code) Assessment Notes Treatment Notes Treatment Clinical Notes Section Notes 08/06/2025 URI (upper respiratory infection) (ICD-10 - J06.9) will just observe unless she gets worse Plan Of Treatment Treatment Notes Assessment Notes URI (upper respiratory infection) will j ust observe unless she gets worse Next Appt Details Provider Name:Paolo holland, 09/03/2025 09:30:00 AM, [address], [address], [place], [place], [phone], Progress Notes * Lucy ARAUJO PDOB: [birth year] (65 yo F)Acc No.[id number]:08/06/2025 Patient: Lucy CHRISTIANSON Provider: Catrina Mcmahon MD :1960 A ge:65 Y S ex:Female Date:08/06/2025 Address:[address] [place] [address], [id number] Subjective: * Chief Complaints: * s inus congested and draining, coughing x 4 days negative for Covid this AMVideo [phone] * HPI: S ymptom(s): patient is a 65 yo female has been sick for 4 days. tested negative for covid this morning. cold and small cough. nose is the worse. seems like it is just a cold. Telehealth L ocation of provider rendering services: [address], [address], L ocation of patient: a [...] otal time spend talking with patient (minutes) 2 0. * ROS: G eneral/Constitutional: Denies C hills. D enies F atigue. D enies F ever. D enies H eadache. E NT: Denies S ore throat. R espiratory: Admits C ough. D enies S hortness of breath at rest. D enies S hortness of breath with exertion. D enies S putum production. D enies W heezing. G astrointestinal: Denies D iarrhea. [...] bedtime as needed Orally Twice a day valACYclovir HCl 1 GM Tablet TAKE 1 TABLET ORALLY EVERY 24 HRS 30 DAYS Fluticasone Propionate 50 MCG/ACT Suspension SPRAY 2 SPRAYS INTO EACH NOSTRIL ONCE DAILY Hydrocod Gregg-Chlorphe Gregg ER 10-8 MG/5ML Suspension Extended Release 5 mL as needed Orally every 12 hrs , Notes to Pharmacist: Partial Fill upon Patient RequestOmeprazole 20 MG Capsule Delayed Release TAKE 1 CAPSULE BY MOUTH ONCE A DAY 30 MINUTES TO 1 HOUR BEFORE MORNING MEAL Albuterol Sulfate (2.5 MG/3ML) 0.083% Nebulization Solution as directed Inhalation every 6 hrs Albuterol Sulfate HFA 108 (90 Base) MCG/ACT Aerosol Solution 1 puff as needed Inhalation every 4 hrs Wixela Inhub 250-50 MCG/ACT Aerosol Powder Breath [...] as needed Orally Twice a day Taking valACYclovir HCl 1 GM Tablet TAKE 1 TABLET ORALLY EVERY 24 HRS 30 DAYS Taking Fluticasone Propionate 50 MCG/ACT Suspension SPRAY 2 SPRAYS INTO EACH NOSTRIL ONCE DAILY Taking Hydrocod Gregg-Chlorphe Gregg ER 10-8 MG/5ML Suspension Extended Release 5 mL as needed Orally every 12 hrs , Notes to Pharmacist: Partial Fill upon Patient RequestTaking Omeprazole 20 MG Capsule Delayed Release TAKE 1 CAPSULE BY MOUTH ONCE A DAY 30 MINUTES TO 1 HOUR BEFORE MORNING MEAL Taking Albuterol Sulfate (2.5 MG/3ML) 0.083% Nebulization Solution as directed Inhalation every 6 hrs Taking Albuterol Sulfate HFA 108 (90 Base) MCG/ACT Aerosol Solution 1 puff as needed Inhalation every 4 hrs Taking Wixela Inhub 250-50 MCG/ACT Aerosol Powder [...] Objective: * Vitals: H t: 65, Wt: 175, BMI:29.12, Wt-k.38. weight is 175 at home BP not taken no temp. * Examination: G eneral Examination: GENERAL APPEARANCE: a lert, well hydrated, in no distress.? Assessment: * Assessment: 1. U RI (upper respiratory infection) - J06.9 (Primary) Plan: * Treatment: * Procedure Codes: * * Sign off status: Completed true * Provider: Catrina Mcmahon MD Date: 1 10/07/2024 Generated for Tali childs/Judy/Randyitting on: 10/11/2024 12:47 PM EST History and Physical Notes * HPI (History of Present Illness) Category Sub-Category Detail Notes Category Not es Symptom(s) Telehealth Location of [facility] rendering services:: [address], [address] Location of patient:: at address listed in demographics for today's visit Patient identification confirmed using:: Name, Telehealth method:: Video co nference where patient is visible to the provider of care Consent:: Patient verbally c onsented to treatment, Patient verbally consented to billing insurance company, Patient informed of any privacy concerns related to method of visit Total time spend talking with patient (m inutes): 20 Examination Category Sub-Category Detail Notes Category Not es General Examination GENERAL APPEARANCE: alert, w ell hydrated, in no distress
[2025-08-10 11:25] VITALS: BP 136/80; PULSE 79; TEMP 36.7; O2SAT 99; BMI 31.4
--- NOTE | 2025-08-10 11:25 | MHC.OFFWIV ---
Intake Vital Signs 08/10/25 11:25 Height 5 ft 4 in Weight 183 lb BMI 31.4 BP 136/80 Blood Pressure Location Rt brachial Position Sitting Pulse 79 Pulse Source Pulse Oximeter Temp 98.0 F Temp Source Oral Pulse Oximetry (%) 99 Intake Visit Reasons: EP left middle finger swollen Intake Note: pt presents with non healing swelling and throbbing to left middle finger- was seen 3 days ago and prescribed doxycycline Patient Tobacco Use Status: Never used Tobacco Allergies No Known Allergies (No Known Allergies*) Allergy (Verified 08/10/25 11:29) Do you need a note to return to daycare/school/sports/work: No HPI HPI Comments History of Present Illness Details History of Present Illness - The patient is a 65-year-old female presenting for follow-up of a right middle finger infection. - She was previously seen on Wednesday for this issue, at which time an incision and drainage was not performed as the area appeared to be mostly blood and was small. - Despite taking prescribed antibiotics, her condition has not improved, and the finger appears to have more blood collection. Review of Systems - Integumentary: Reports tenderness of the left middle finger. All systems reviewed and are unremarkable except as noted in HPI Physical Exam General: Cooperative, healthy appearing, comfortable, no acute distress and well developed Orientation: Patient oriented x3 Limitations: No limitations Head: Normal to inspection Ears: Hearing grossly normal bilaterally Nose: Normal External nose present Face and sinus: Normal facial exam Eyes: Appearance normal, both eyes and all related structures Neck: Normal visual inspection and Yes full ROM Respiratory: Normal respiratory effort and able to speak in complete sentences. Skin: No rashes or lesions noted Neuro: Patient oriented x3 Extremities: Right middle finger with paronychia, TTP, blood and purulent fluid expressed in I&D [facility] Medical History (Updated 09/29/24 @ 07:50 by aMy Bolivar MD) Multinodular goiter Tendonitis of wrist, left History of COVID-19 Hypertension Asthma Surgical History Hx of surgical procedure (01/25/24) History of breast lump/mass excision Hx of dilation and curettage H/O colonoscopy S/P arthroscopic surgery of left knee Social History Comment: counts correct Patient Tobacco Use Status: Never used Tobacco Current occupational status: employed Current occupation: Desk work - right handed Physical Exam Vital Signs: Last Vital Signs Temp 98.0 F 08/10/25 11:25 Pulse 79 08/10/25 11:25 BP 136/80 08/10/25 11:25 Pulse Ox 99 08/10/25 11:25 BMI result Body Mass Index 31.4 Office Procedures AMB Incision and Drain Details: Right middle finger nail was prepped and cleaned with Betadine, using a 11. Blade we sliced into the medial nail where it meets the skin to release quite a bit of blood mixed with small amount of purulent fluid, we applied bacitracin and a Band-Aid 39240-Jtsjmral of Skin Abscess, simple All charges added?: Procedure code (CPT) selection complete Office Meds Triple Antibiotic 3.5 mg-400 unit-5,000 unit topical ointment packet Performing Provider: Larisa Jackson PA-C Performing Location: [facility] Administered by: Larisa Jackson PA-C on 08/10/25 12:00 Dose Route Admin Location Dispensed Lot Number Expiration Date [facility] [employer] 1 appl topical 1 ea povidone-iodine 10 % topical ointment Performing Provider: Larisa Jackson PA-C Performing Location: [facility] Administered by: Larisa Jackson PA-C on 08/10/25 12:00 Dose Route Admin Location Dispensed Lot Number Expiration Date [facility] Commercial Loan [employer]st 1 appl topical 2 g Assessment & Plan Assessment & Plan (1) Paronychia, acute, finger: Code(s): L03.019 - Cellulitis of unspecified finger Qualifiers: Laterality: right Qualified Code(s): L03.011 - Cellulitis of right finger Plan: Patient was informed and verbally consented to the use of an ambient scribe for clinic note documentation during this visit. Paronychia Of Right Middle Finger - An incision and drainage procedure was performed on the right middle finger. - The patient was advised to continue her course of oral antibiotics. - Wound care instructions include soaking the finger in Epsom salt soaks and applying bacitracin. - A pressure bandage was applied and the patient was instructed to keep it on for 2-3 hours before changing to a regular band-aid. - The patient was advised to cover the finger with a bandage when in public. - Prognosis was discussed, with the expectation that the finger will be sore for a couple of days but should feel significantly better by Wednesday or Wednesday. Orders: Orders AMB Incision & Drainage Today L03.011 - Cellulitis of right finger Coding Level of Care Code Est Pt Level 3 (88341) Diagnoses Acute paronychia of finger of right hand L03.011 Laterality: right CPT Codes I&D Drain - Drain 1: 11443-Eshjwfwo of Skin Abscess, simple ([id number])
--- OUTSIDE RECORDS SUMMARY | 2025-08-10 12:46 | XMS_ITS | Patient Health Record ---
Author Organization [facility] Address [address] [place] [address] Care Team Providers Care Roll Edge Machine Operator Name Role Phone Paolo Mcmahon MD Primary Care Provider Rashi Greer [phone] Allergies No Known Allergies Reason For Referral [...] Miscellaneous: Marital status: Occupation: Accounts Payable at [employer] Section Notes: Nonsmoker; no significant al cohol Nonsmoker; no significant al cohol Problems Problem Type SNOMED Code ICD Code Onset Dates Problem Status W/U Status Risk Notes Problem Screening for malignant neoplasm of colon (582666406) Encounter for screening for malignant neoplasm of colon (Z12.11) Active confirmed Problem Pre-procedure evaluation check (811343746) Encounter for other preprocedural examination (Z01.818) Active confirmed Problem Diverticulosis of colon (121978996) Diverticulosis of colon (K57.30) Active confirmed Plan Of Treatment Future Test Test Name Order Date COLONOSCOPY 01/06/2012 COLONOSCOPY 03/11/2022 Insurance Providers Payer Name Payer Address Payer Phone Subscriber Number Group Number Insured Name Patient Relationship to Insured Coverage Start Date Coverage End Date [facility] [address] [employer] INCLUDES THE [facility] [place] [phone] [id number] АНАН ARAUJO Self - patient is the insured Medical (General) History Medical History History ICD Code Asthma Denies IA,DM,CVA,renal disease HTN Negative colonoscopy in 01/2012 Surgical History Surgery Date(Month/Year) Breast cyst removed 1996 D & C 2021 Left knee surgery
--- OUTSIDE RECORDS SUMMARY | 2025-08-10 12:47 | XMS_ITS | Patient Health Record ---
Author Organization [facility] Address [address] [facility] [place] [address] Care Team Providers Care Survey Field Technician Name Role Phone Paolo Mcmahon MD Primary Care Provider Ramana Miller [phone] Allergies Allergen (clinical drug ingredient) Drug/Non Drug [...] Status Risk Notes Problem Acquired hallux valgus (99557761) Hallux valgus (acquired), right foot (M20.11) Active confirmed Plan Of Treatment Pending Test Test Name Order Date X ray : Foot, right 3V 01/21/2018 Insurance Providers Payer Name Payer Address Payer Phone Subscriber Number Group Number Insured Name Patient Relationship to Insured Coverage Start Date Coverage End Date [facility] [address] [place] [address] [id number] Lucy Carranza Self - patient is the insured Medical (General) History Medical History History ICD Code Headaches/Migraines asthma Back,Hip,and Knee pain Hiatal hernia Reflux ( GERD) Chicken pox Surgical History Surgery Date(Month/Year) arthroscopic knee surgery 11/2014 cyst removal 04/1998
--- OUTSIDE RECORDS SUMMARY | 2025-08-10 12:47 | XMS_ITS | Clinical Summary ---
Author Organization [facility] Address [address] [place] [address] Care Team Providers Care Draft Roller Picker Name Role Phone Paolo Mcmahon MD Primary Care Provider [phone] Allergies No known active allergies Encounters Date Type Department Care Team Description 05/15/2025 11:00 AM EDT Office Visit [facility] [place] [address] Davida Schmidt PA-C Acquired hallux rigidus of [...] Procedure Name Priority Date/Time Associated Diagnosis Comments [place] ARTHROCENTESIS ASPIR&/INJ SMALL JT/BURSA W/O US Routine 05/15/2025 11:00 AM EDT Acquired hallux rigidus of right foot from Last 3 Months Results * AZ ARTHROCENTESIS ASPIR&/INJ SMALL JT/BURSA W/O US (05/15/2025 [...] to verify the correct patient, procedure, equipment, patient support specialist and site/side marked as required. Patient was prepped and draped in the usual sterile fashion. Davida Schmidt PA-C PROCEDURE/MINOR SURGICAL O RDERABLES Final Result from Last 3 Months Insurance [facility] Care Teams Draft Roller Picker Relationship Specialty Start Date End Date Paolo Mcmahon MD [address] [place] [address] Dr Costa, [place] [address] PCP - General Internal Medicine 06/13/24
--- OUTSIDE RECORDS SUMMARY | 2025-08-10 12:48 | XMS_ITS | Patient Health Record ---
Author Organization Paolo Mcmahon MD Address [address] [place] [address] [phone] Support Name Relationship Address Phone Paolo Mcmahon Caregiver [address] [facility] [address] [place] [address] [phone] Nicolas Snyder [facility]giver [facility] [address] [place] [address] [phone] Akosua Cazares Caregiver [address] [facility] [address] [place] [address] [phone] Rashi Luna Caregiver [address] [facility] [address] [place] [address] [phone] Sejal Graff Caregiver [address] [facility] [address] [place] [address] [phone] NEGRITA Kimble Caregiver [address] [facility] [address] [place] [address] [phone] Ramana Vieira Caregiver [address] [facility] [address] [place] [address] [phone] Larisa Redd Caregiver [address] [facility] [address] [place] [address] [phone] Unavailable Emergency Contact Unknown [phone] Lucy Carranza Guarantor Unknown [phone] Care Team Providers Care Barber Or Beauty Shop Manager Name Role Phone Paolo Mcmahon Primary Care Provider Allergies No Known Allergies Results Component Value Reference Range Notes Complete Blood Count Auto Di ff Reviewed date:07/16/2025 12:07:05 PM Interpretation: Performing Lab:[facility], [address] [place] [phone] Notes/Report: White Blood Count 6.6 4.8-10.8 X10*3/uL [...] NRBC Abs Auto 0.000 0.0-0.012 X10*3/uL Comprehensive Valmy. Panel Fa st Reviewed date:07/16/2025 05:38:27 PM Interpretation: Performing Lab:[facility], [address] [place] [phone] Notes/Report: Sodium 142 135-145 mmol/L Potassium 3.9 [...] Reviewed date:07/16/2025 05:32:53 PM Interpretation: Performing Lab:[facility], [address] [place] [phone] Notes/Report: Triglycerides 109 <150 mg/dL Desirable Triglyceride: [...] Reviewed date:07/16/2025 05:34:40 PM Interpretation: Performing Lab:[facility], [address] [place] [phone] Notes/Report: Vitamin D 25-OH Total 19.6 >30 [...] Reviewed date:07/16/2025 05:37:13 PM Interpretation: Performing Lab:[facility], [address] [place] [phone] Notes/Report: Urine, Clean Catch Color Urine Yellow Appearance Urine Clear PH 5.5 5.0-9.0 Glucose Urine UA Negative Negative mg/dL Urine Blood Moderate (2+) Negative Specific Dowling - Urine >= 1.030 1.005-1.025 Urine Protein Negative Neg-Trace mg/dL Urine Ketones Negative Negative mg/dL Nitrite Urine Negative Negative Leukocyte Esterase Urine Negative Negative RBC Urine 11-20 0-2 /HPF WBC Urine 0-5 0-5 /HPF Squamous Epithelial Cell Urine 0-2 0-2 /HPF Bacteria Urine None Seen None Seen Hyaline Casts Urine 0-2 0-2 /LPF US thyroid Reviewed date:09/18/2024 11:34:41 AM Interpretation: Performing Lab: Notes/Report: [address] [address] Ultrasound Report Signed Patient: Lucy Carranza MR#: [id number] [birth year] : 1960 Acct:[id number] Age/Sex: 64 / F ADM Date: 09/11/24 Loc: HO.US Attending Dr: Paolo Mcmahon MD Ordering Physician: Paolo Mcmahon MD Date of Service: 09/11/24 Procedure(s): US thyroid Accession Number(s): [id number] cc: Paolo Mcmahon MD EXAMINATION: US THYROID [...] 09/12/24 0749 DD/ 1432 TD/TT: 09/11/24 1442 Loop Puller: [place] [address] Ultrasound Report Signed Patient: Alanis Carranza MR#: [id number] [birth year] : 1960 Acct:[id number] Age/Sex: 64 / F ADM Date: 09/11/24 Loc: HO.US Attending Dr: Paolo Mcmahon MD Ordering Physician: Paolo Mcmahon MD Date of Service: 09/11/24 Procedure(s): US thyroid Accession Number(s): [id number] cc: Paolo Mcmahon MD EXAMINATION: US THYROID [...] by: Rashi Pradhan MD 09/12/2024 07:49 AM [facility] Dictated By: Rashi Pradhan MD Signed By: <Electronically signed by Rashi Pradhan MD in OV> 09/12/24 0749 DD/ 1432 TD/TT: 09/11/24 1442 Loop Puller: Free T4 (Free Thyroxine) Reviewed date:09/29/2024 10:40:32 AM Interpretation: Performing Lab:[facility], [address] [place] [phone] Notes/Report: Free T4 (Free Thyroxine) 1.06 0.71-1.85 ng/dL Thyroid Stimulating Hormone Reviewed date:09/29/2024 10:40:23 AM Interpretation: Performing Lab:[facility], [address] [place] [phone] Notes/Report: Thyroid Stimulating Hormone 0.61 0.32-4.0 uIU/mL TSH 3rd Generation ([facility]) Pathology Reviewed date:11/16/2024 12:58:42 PM Interpretation: Performing Lab:[facility], [address] [place] [phone] Notes/Report: ---- Name: Lucy Carranza Age/Sex: 64/F : 1960 Unit#: [id number] Attend Dr: May Bolivar MD Re10/04/24 Status : [facility] REF Location: [facility] Disch: ---- SPEC : [id number] REC STATUS: CHEL WIGGINS NUM: [id number] GLORIA: 10/04/2443 [facility] DR: May Bolivar MD ENTERED: 10/04/24- 48 SP TYPE: Cytology OT DR: Paolo Mcmahon MD ORDERED: Cell Block/ 2, Fine Ndl Asp/2 Addendum Addendum 1 Entered: 11/16/24-1029 Afirma Test Results (B): - AFIRMA GSC (genomi c sequencing field pipelines supervisor): Benign (risk of malignancy approximately 4%) See entire report in the Laboratory/Pathology section of the patient's EMR. A copy of the report has been sent to the ordering provider's office. Testing performed at [facility], [place], [place]; [facility]#[id number], #[id number] Addendum Signed (signature on file) Noé Willard MD 11/16/24 1029 ---- Diagnosis A. Thyroid, right superior/mid 1.3 cm nodule, fine needle aspiration: Benign (Wheeler category II). COMMENT (A): Satisfactory for evaluation; cellular specimen. Groups of follicular epithelial cells mos tly in a macrofollicular arrangement are readily seen; no cytologic atypia is present. R are colloid is present. The cell block is acellular and non- contributory. Taken together, the findings are consistent with a benign thyroid nodule. B. Thyroid, right inferior 2.9 cm nodule, fine needle aspiration: Atypical (Wheeler category III). COMMENT (B): Satisfactory for evaluation; [...] Alanis Carranzalou Age/Sex: 64/F : 1960 Unit#: [id number] Attend Dr: May Bolivar MD Re10/04/24 Status : [facility] REF Location: [facility] Disch: ---- SPEC : [id number] RECD : 10/04/24 STATUS: CHEL WIGGINS NUM: [id number] GLORIA: 10/04/24 [facility] DR: May Bolivar MD ENTERED: 10/04/24 48 [...] To: Paolo Mcmahon MD [facility] [address] [place] [address] [address] [place] [address] May Bolivar MD [facility] Endocrinology [address] [place] [phone] [email or web address] ---- Signed (signature on file) Noé Willard MD 10/06/24 0752 ---- END OF REPORT XR chest 2V Reviewed date:01/10/2025 03:56:52 PM Interpretation: Performing Lab: Notes/Report: [address] [address] XRay Report Signed Patient: Lucy Carranza MR#: [id number] [birth year] : 1960 Acct:[id number] Age/Sex: 64 / F ADM Date: 01/10/25 Loc: MARK Attending Dr: Paolo Mcmahon MD Ordering Physician: Paolo Mcmahon MD Date of Service: 01/10/25 Procedure(s): XR chest 2V Accession Number(s): [id number] cc: Paolo Mcmahon MD EXAMINATION: XR CHEST [...] 01/10/25 0740 DD/ 07 TD/TT: 01/10/25 0707 Loop Puller: [address] [address] XRay Report Signed Patient: Alanis Carranza MR#: [id number] [birth year] : 1960 Acct:[id number] Age/Sex: 64 / F ADM Date: 01/10/25 Loc: HO.XRAY Attending Dr: Paolo Mcmahon MD Ordering Physician: Paolo Mcmahon MD Date of Service: 01/10/25 Procedure(s): XR adam st 2V Accession Number(s): [id number] cc: Paolo Mcmahon MD EXAMINATION: XR CHEST [...] 01/10/25 0740 DD/ 0702 TD/TT: 01/10/25 0707 Loop Puller: MM tomosynthesis screening B I Reviewed date:04/11/2025 12:33:01 PM Interpretation: Performing Lab: Notes/Report: [facility] [address] [place] [address] Mammography Report Signed Patient: Lucy Carranza MR#: [id number] [birth year] : 1960 Acct:[id number] Age/Sex: 65 / F ADM Date: 04/09/25 Loc: MAMMO Attending Dr: Paolo Mcmahon MD Ordering Physician: Paolo Mcmahon MD Results: 2Be nign Findings Date of Service: 04/09/25 Follow Up: 1 Year From Orig inal Mammogram Procedure(s): MM tomosynthesis screening BI Accession Number(s): [id number] cc: Paolo Mcmahon MD EXAMINATION: MM SCREENING [...] OV> 04/10/253 DD/ 1235 TD/TT: 04/09/25 1243 Loop Puller: Camelia [facility] [address] [place] [address] Mammography Report Signed Patient: Alanis Carranza MR#: [id number] [birth year] : 1960 Acct:[id number] Age/Sex: 65 / F ADM Date: 04/09/25 Loc: HO.MAMMO Attending Dr: Paolo Mcmahon MD Ordering Physician: Paolo Mcmahon MD Results: 2Be nign Findings Date of Service: 04/09/25 Follow Up: 1 Year From Orig inal Mammogram Procedure(s): MM tomosynthesis screening BI Accession Number(s): [id number] cc: Paolo Mcmahon MD EXAMINATION: MM SCREENING [...] 04/10/25 2143 DD/ 1235 TD/TT: 04/09/25 1243 Loop Puller: Reason For Referral Reason thyroid nodule Diagnosis [...] Administered Flu Vaccine IM Intramuscular 06/20/2013 Administered [facility] Flu Vaccine IM Intramuscular 06/07/2014 Administered [facility] PPSV23 (Pnemovax) Unknown 06/07/2014 Administered given at work Flu Vaccine IM Intramuscular 05/29/2015 Administered [facility] Flu Vaccine ID Intradermal 05/06/2016 Administered [facility] d - Afluria 0.5 ML Flu Vaccine IM Intramuscular 05/06/2017 Administered pt wa s given the vaccine at [facility] on [facility]. Fluarix Quadrivalent IM Intramuscular 05/11/2018 Administe red pt was given the vaccine at [facility] in [place]. TDaP IM Intramuscular 07/16/2018 Administered pt was given the vaccine at [facility] on [address]. Tetanus Unknown 07/16/2018 Administered Shingrix IM [...] 06/22/2022 Administered Fluarix Quadrivalent IM Intramuscular 05/13/2023 Adminamauir valdez Fluarix Quadrivalent - 150 IM Intramuscular [...] Problem Status W/U Status Risk Notes Problem 828595536 Thyroid nodule (E04.1) Active confirm ed Problem 63783260 Vitamin D defici ency (E55.9) Active confirmed Problem 42900600 Irritable bowel syndrome without diarrhea (K58.9) Active confirmed Problem 54254342 Essential hypert ension (I10) Active confirmed Problem 029402587 Mild intermitten t asthma without complication (J45.20) Active confirmed Problem 502751644 Rosacea (L71.9) Active confirmed Problem 908105260 History of hemat uria (Z87.448) Active confirmed Problem 590684247 Cervical disc di sease (M50.90) Active confirmed Problem 33498200 Intrinsic eczema (L20.84) Active confirmed Problem 37484998 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) Active confirm ed Problem 561238106 Panic attack (F41.0) Active confirmed Problem 354294763 Pure hypercholesterolemia (E78.00) Active confirmed Problem 57980585 Non-seasonal all ergic rhinitis due to pollen (J30.1) Active confirmed Problem 60693461 Abnormality of t ongue (Q38.3) Active confirmed Problem 999756595 Bilateral caroti d artery disease, unspecified type [...] Paolo Mcmahon MD [address] [place] [id number] 07/16/2025 Paolo Mcmahon Blood tests for rout ine general physical examination Z00.00 ; Essential hypertension I10 ; Vitamin D deficiency E55.9 and Pure hypercholesterolemia E78.00 Paolo Mcmahon MD [address] [place] [address] [id number] 08/28/2024 Paolo Mcmahon Thyroid nodule E04.1 and Bilateral carotid artery disease, unspecified type I77.9 Paolo Mcmahon MD [address] [place] [address] [id number] 12/21/2024 Paolo Mcmahon Bronchitis J40 Paolo Mcmahon MD [address] [place] [address] [id number] 01/09/2025 Paolo Mcmahon Hiatal hernia K44.9 and Persistent cough R05.3 Paolo Mcmahon MD [address] [place] [address] [id number] 01/29/2025 Paolo Mcmahon Essential hypertensi on I10 and Mild intermittent asthma without complication J45.20 Paolo Mcmahon MD [address] [place] [address] [id number] 08/06/2025 Paolo Mcmahon URI (upper respirato ry infection) J06.9 Paolo Mcmahon MD [address] [place] [address] [id number] 01/09/2025 Paolo Mcmahon MD [address] [facility] [address] [place] [id number] 11/06/2024 Paolo Mcmahon Mild intermittent as thma [...] use, pending diagnostic testing/ order faxed to [facility] Patient Reg 01/29/2025 Essential hypertensi on (ICD-10 [...] Name:Paolo Burt ier, 09/03/2025 09:30:00 AM, [address] [facility] [address], [place], [place], [phone], Insurance Providers Payer Name Payer Address Payer Phone Subscriber Number Group Number Insured Name Patient Relationship to Insured Coverage Start Date Coverage End Date [facility] [address] [facility] [address] [place] [id number] Lucy Carranza Self - patient is the insured Medical (General) History Medical History History ICD Code Cysto - 10/17/[address] and cysto 05/05 colonoscopy 2011 due in 10 years: Colono scopy 05/04/22 10yr repeat Surgical History Surgery Date(Month/Year) Excision of Lesion, LT Upper back - Dr. Yandy Redd 01/2019
== END 2025-08-10 12:02 | disposition home or self-care (01) ==
PROVIDERS: PCP Internal Medicine; Visit Provider Physician Assistant
DX: L03.011 Cellulitis of right finger (principal)

== ENCOUNTER → 2025-08-10 10:54 | Outpatient (BNVA) | payer OTHER, SELFPAY | PROVIDERS: PCP Internal Medicine; Visit Provider Physician Assistant | DX: L03.011 Cellulitis of right finger (principal) | CPT/HCPCS: 10060 ==